=== PATIENT | female | born 1965 | race Caucasian/White ===

== ENCOUNTER → 2016-11-02 | Day surgery (SDC) | payer OTHER ==
[2016-10-24 09:13] VITALS: BMI 28.0
--- NOTE | 2016-10-24 09:56 | PAT Medication Instructions ---
Service Date October 24, 2016. Current Home Medication List Albuterol (Proair Hfa), 2 PUFFS INH Q4HR PRN Baclofen (Lioresal), 10 MG PO BID Cetirizine Hcl (Zyrtec), 10 MG PO QAM Cholecalciferol (Vitamin D3), 1 TAB PO QPM Docusate Sodium (Colace *), 100 MG PO TID Duloxetine Hcl (Cymbalta *), 90 MG PO QAM Fluticasone Prop/Salmeterol (Advair Diskus 500/50 Mcg *), 1 PUFF INH BID Fluticasone Propionate (Nasal) (Flonase Allergy Relief), 2 SPRAYS TRACY QAM Gabapentin (Neurontin), 400 MG PO TID Hydroxyzine Hcl (Hydroxyzine Hcl), 2.5 ML PO TID PRN for PRN Ipratropium [place] (Ipratropium [place]), 1 VIAL NEB QID PRN for PRN Levothyroxine (Synthroid *), 0.112 MG PO QAM Morphine Sulfate Ir (Morphine Sulfate Ir), 60 MG PO Q12H PRN for Pain Omeprazole (Prilosec), 20 MG PO QAM Oxcarbazepine (Trileptal), 300 MG PO TID Oxycodone Ir (Roxicodone Ir), 5 MG PO Q6H PRN for Pain Prochlorperazine Maleate (Compazine), 10 MG PO Q6H PRN for nasea Simethicone (Simethicone), 1 CAP PO TID PRN for GAS Topiramate (Topamax), 50 MG PO BID Medication Instructions For Your Scheduled Surgery - Hold the following medications the morning of surgery: Simethicone (Simethicone), 1 CAP PO TID PRN for GAS Docusate Sodium (Colace *), 100 MG PO TID Cetirizine Hcl (Zyrtec), 10 MG PO QAM Baclofen (Lioresal), 10 MG PO BID - Take the following medications the morning of surgery with a sip of water: Topiramate (Topamax), 50 MG PO BID Prochlorperazine Maleate (Compazine), 10 MG PO Q6H PRN for nasea (if needed) Oxcarbazepine (Trileptal), 300 MG PO TID Omeprazole (Prilosec), 20 MG PO QAM Morphine Sulfate Ir (Morphine Sulfate Ir), 60 MG PO Q12H PRN for Pain (okay to take up to 4 hours prior to surgery if needed) Oxycodone Ir (Roxicodone Ir), 5 MG PO Q6H PRN for Pain (okay to take up to 4 hours prior to surgery if needed) Levothyroxine (Synthroid *), 0.112 MG PO QAM Ipratropium [place] (Ipratropium [place]), 1 VIAL NEB QID PRN for PRN (if needed) Gabapentin (Neurontin), 400 MG PO TID Fluticasone Prop/Salmeterol (Advair Diskus 500/50 Mcg *), 1 PUFF INH BID Fluticasone Propionate (Nasal) (Flonase Allergy Relief), 2 SPRAYS TRACY QAM Duloxetine Hcl (Cymbalta *), 90 MG PO QAM Albuterol (Proair Hfa), 2 PUFFS INH Q4HR PRN (okay to use if needed; bring with you to hospital morning of surgery) Hydroxyzine Hcl (Hydroxyzine Hcl), 2.5 ML PO TID PRN for PRN (if needed) - Take the following medications as scheduled the night before surgery: Topiramate (Topamax), 50 MG PO BID Simethicone (Simethicone), 1 CAP PO TID PRN for GAS (if needed) Prochlorperazine Maleate (Compazine), 10 MG PO Q6H PRN for nasea (if needed) Oxcarbazepine (Trileptal), 300 MG PO TID Morphine Sulfate Ir (Morphine Sulfate Ir), 60 MG PO Q12H PRN for Pain (if needed) Oxycodone Ir (Roxicodone Ir), 5 MG PO Q6H PRN for Pain Ipratropium [place] (Ipratropium [place]), 1 VIAL NEB QID PRN for PRN (if needed) Gabapentin (Neurontin), 400 MG PO TID Fluticasone Prop/Salmeterol (Advair Diskus 500/50 Mcg *), 1 PUFF INH BID Cholecalciferol (Vitamin D3), 1 TAB PO QPM Docusate Sodium (Colace *), 100 MG PO TID Baclofen (Lioresal), 10 MG PO BID If you have any questions please call us at [phone] or [phone] or [phone]
[2016-10-24 10:30] LABS: BASO ABS # 0.05 K/uL (0-0.2); COMPLETE YES; EOS % 3.7 %; HEMATOCRIT 39.9 % (37-47); LYMPH % 34.6 %; LYMPH ABS # 1.67 K/uL (1.2-3.4); MEAN CELL VOLUME 82.3 fL (80-100); MEAN CORPUSCULAR HEMOGLOBIN 27.2 pg (25-34); MEAN CORPUSCULAR HGB CONC 33.1 g/dl (32-36); MEAN PLATELET VOLUME 9.2 fL (7.4-10.4); MONO % 9.5 %; NEUT % 51.2 %; PLATELET COUNT 271 K/uL (130-400); RED BLOOD COUNT 4.85 M/uL (4.2-5.4); WHITE BLOOD COUNT 4.83 K/uL (4.8-10.8)
[2016-10-24 11:22] LABS: BUN/CREATININE RATIO 18.5 (10-20); CREATININE 0.81 mg/dl (0.60-1.20); POTASSIUM 4.3 mmol/L (3.5-5.1)
[2016-10-24 11:34] LABS: CALCIUM 9.1 mg/dl (8.5-10.1)
[~2016-11-02] VITALS: Ht 170.2 cm; Wt 81.3 kg
[~2016-11-02] MED LIST: ADVIN50050 INH; ALBU1AER9 INH; ALBUTEROL HFA INHALER 8.5 GM INH ONE; ATRINS NEB; ATROPINE SULFATE 0.1 MG/ML 5ML SYR IV PRN; BACL10TA PO; CETI10TA10 PO; CHOL1000 PO; CLC100 PO; CYM30 PO; DEXAMETHASONE SOD INJ 4 MG/ML VIAL ONE; EpHEDrine SULFATE 50MG/5ML SYR ONE; EpHEDrine SULFATE INJ 50 MG/ML AMP IV PRN; FENTANYL CITRATE INJ 50 MCG/1 ML 2 ML VIAL IV PRN; FENTANYL CITRATE INJ 50 MCG/1 ML 2 ML VIAL ONE; FLUT0.15 NAE; GABA1CAP5 PO; HYDR-3124 PO; HYDR10SY2 PO; KETOROLAC TROMETHAMINE 30 MG/ML VIAL IV. PRN; LACTATED RINGER'S 1000ML 1,000 ML IV SCH; LIDOCAINE HCL 2% 2 ML VIAL (20MG/ML) ONE; MIDAZOLAM HCL 1 MG/ML 2ML VIAL ONE; MORP30TA PO; ONDANSETRON INJ 2 MG/ML 2 ML VIAL IV PRN; ONDANSETRON INJ 2 MG/ML 2 ML VIAL ONE; OXCA300T PO; OXYC1TAB3 PO; OXYCODONE/ACETAMINOPHEN 5-325 TAB PO PRN; PRLSR20 PO; PROC1TAB5 PO; PROPOFOL IV EMULSION 10 MG/ML 20 ML VIAL IV ONE; SIME1CAP11 PO; SODIUM CHLORIDE 0.9% 1000ML 1,000 ML IV SCH; SYN112 PO; TOPI50TA16 PO
[2016-11-02 11:03] VITALS: BP 120/69; PULSE 70; TEMP 37.2; O2SAT 97; Ht 170.2 cm; Wt 81.3 kg
[2016-11-02 11:22] LABS: BASO % 0.8 %; BASO ABS # 0.04 K/uL (0-0.2); EOS % 3.8 %; HEMATOCRIT 38.7 % (37-47); LYMPH % 31.5 %; LYMPH ABS # 1.56 K/uL (1.2-3.4); MEAN PLATELET VOLUME 8.8 fL (7.4-10.4); MONO % 9.7 %; NEUT % 54.2 %; PLATELET COUNT 243 K/uL (130-400); RED BLOOD COUNT 4.78 M/uL (4.2-5.4); WHITE BLOOD COUNT 4.96 K/uL (4.8-10.8)
[2016-11-02 11:27] LABS: COMPLETE YES; MEAN CORPUSCULAR HGB CONC 33.3 g/dl (32-36)
--- NOTE | 2016-11-02 11:53 | History & Physical Bridge Note ---
H&P Re-Evaluation Bridge Note: I have examined the patient, reviewed the History & Physical and in the interval since the performance of the History & Physical I have noted the following changes of clinical significance: No changes noted
--- NOTE | 2016-11-02 13:19 | Discharge Instructions ---
Discharge Instructions Date of Service Nov 02, 2016. Visit Reason for Visit: Heavy Menstrual Bleeding Discharge Discharge Diagnosis / Problem: Heavy Mnestural bleeding, S/p endometrial ablation, D&C, hysteroscopy Discharge Goals Goal(s): Decrease discomfort Activity Recommendations Activity Limitations: per Instructions/Follow-up section Anesthesia . Post Anesthesia Instructions: If you have had General Anesthesia or IV Sedation: * Do not drive today. * Resume driving when surgeon permits. * Do not make important decisions or sign legal documents today. * Call surgeon for: 1. Temperature elevations greater than 101 degrees F. 2. Uncontrollable pain. 3. Excessive bleeding. 4. Persistent nausea and vomiting. 5. Medication intolerance (nausea, vomiting or rash). * For nausea and vomiting use only clear liquids such as: tea, soda, bouillon until nausea subsides, then gradually increase diet as tolerated. * If you have any concerns or questions, call your surgeon's office. If physician is unavailable and it is an emergency, call 911 or go to the nearest emergency room. . Instructions / Follow-Up Instructions / Follow-Up ACTIVITY RECOMMENDATIONS: * Avoid tampons, douching, hot tubs, pools, and intercourse for 4 weeks. * May shower as usual. * No strenuous activity for 24-48 hours. After 24-48 hours, you can do anything you feel like doing (driving and sports are okay). RETURN TO SCHOOL/WORK: * You may return to school or work after 24 hours unless specified by your physician. DIET: * Resume previous diet. MEDICATIONS: Resume previous medications unless instructed otherwise by your surgeon. Ibuprofen 200mg 2-3 tablets every 4-6 hours as needed --OR-- Aleve 2 tablets every 8-12 hours as needed for post-operative discomfort Medications are over the counter. Tylenol may be used if above medications are contraindicated or not preferred. Medication should be taken with food or milk. do not take on an empty stomach. SPECIAL CARE INSTRUCTIONS: * Check temperature twice daily for one week. Report any elevation over 101 degrees. * Call office if you experience increased pelvic pain or discomfort not relieved by pain medicine, if you have foul smelling vaginal discharge, if you have bleeding that is heavier than a normal menstrual flow. If you are changing a maxi pad every 1- 2 hours, this is too heavy. vaginal spotting is normal for 1-2 weeks. FOLLOW UP VISIT: Call your doctor's office for a post-operative visit. Diet Recommendations Recommended Home Diet: no limitations, resume previous diet Procedures Procedures Performed: Hysteroscopy, Dilation Curretage, Novasure Endometrial Ablation Pending Studies Studies pending at discharge: no Medical Emergencies . Who to Call and When: Medical Emergencies: If at any time you feel your situation is an emergency, please call 911 immediately. . Non-Emergent Contact Non-Emergency issues call your: Primary Care Provider, Oriental Rug Repairer . . "Provider Documentation" section prepared by Gio Mane. .
--- NOTE | 2016-11-02 13:27 | [facility] Post Operative Brief Note ---
Immediate Operative Summary Operative Date Nov 02, 2016. Pre-Operative Diagnosis Heavy Menstrual Bleeding, Fibroid Uterus Post-Operative Diagnosis Heavy Menstrual Bleeding, Fibroid Uterus Procedure(s) Performed Hysteroscopy, Dilation Curretage, Novasure Endometrial Ablation Surgeon Dr. Mane Fortune Cookie Maker Surgeon(s) Dr. Rod Estimated Blood Loss 10 cc Findings Upon Bimanual exam uterus was at midline and freely mobile. Bilateral adnexa clear to palpation. Uterus sounded to 11 cm. Upon hysteroscopic exam bilateral tubal ostia were clearly visualized. There were no submucosal fibroids or polyps noted. Cervical length measured 3.5 cm. Using a medium jones curette a thorough curettage of the cavity was performed obtaining a moderate amount of endometrial tissue which was sent to pathology. Novasure endometrial ablation was performed with settings of 6.5 cm for cavity length and 5.1 cm for cavity width. Ablation was completed at a power of 180 plasencia for 51 seconds. Once the ablation was complete, the novasure tool was removed and the hysteroscope was reintroduced into the endometrial cavity noting an excellent endometrial burn with no incidental uterine perforation or injury. The patient tolerated the procedure well and was sent to recovery with stable vital signs. Fluids (cc crystalloids) 900 Specimens A: Endometrial Curretings Drains None Anesthesia General Complication(s) None Disposition Recovery Room / PACU
[2016-11-02 14:05] VITALS: BP 128/67; PULSE 84; TEMP 36.9; O2SAT 97
--- NOTE | 2016-11-02 14:17 | Anesthesiology Progress Note ---
Anesthesia Post Op Note Date & Time Nov 02, 2016 at 14:16 Vital Signs Pain Intensity: 3 Vital Signs Past 12 Hours Date Time Temp Pulse Resp B/P (MAP) Pulse Ox O2 Delivery O2 Flow Rate FiO2 11/02/16 13:55 36.6 83 12 123/73 96 Room Air 11/02/16 13:45 91 18 125/72 97 Room Air 11/02/16 13:35 85 13 132/85 100 Mask 10 11/02/16 13:25 107 18 142/90 100 Mask 10 11/02/16 13:18 36.0 91 20 139/91 100 Mask 10 11/02/16 11:03 37.2 70 21 120/69 (86) 97 Room Air Notes Mental Status: alert / awake / arousable, participated in evaluation Pt Amnestic to Procedure: Yes Nausea / Vomiting: adequately controlled Pain: adequately controlled Airway Patency, RR, SpO2: stable & adequate BP & HR: stable & adequate Hydration State: stable & adequate Anesthetic Complications: no major complications apparent
[2016-11-02 14:35] VITALS: BP 147/83; PULSE 87; O2SAT 99
[2016-11-02 15:05] VITALS: BP 136/75; PULSE 83; TEMP 36.9; O2SAT 96
--- NOTE | 2016-11-02 19:48 | OPERATIVE REPORT ---
DATE OF OPERATION: 11/02/2016 PREOPERATIVE DIAGNOSES: 1. Heavy menstrual bleeding. 2. Fibroid uterus. POSTOPERATIVE DIAGNOSES: Same. OPERATIVE PROCEDURES: Dilation and curettage, hysteroscopy and NovaSure endometrial ablation. SURGEON: Dr. Mane. CONSTRUCTION HELPER: Dr. Rod. ANESTHESIA: General. ESTIMATED BLOOD LOSS: 10 mL. IV FLUIDS: 900 mL crystalloids. URINE OUTPUT: 200 mL clear yellow urine. SPECIMENS: Endometrial curettings to pathology. DRAINS: None. COMPLICATIONS: None. DISPOSITION: Recovery room. OPERATIVE FINDINGS: Upon bimanual exam, uterus was at midline and freely mobile. Bilateral adnexa were clear to palpation. Uterus sounded to 11 cm. Upon hysteroscopic exam, bilateral tubal ostia were clearly visualized. There were no submucosal fibroids or polyps noted. Cervical length measured 3.5 cm. Using a medium Rossi curette, a thorough curettage of the cavity was performed obtaining a moderate amount of endometrial tissue, which was sent to pathology. NovaSure endometrial ablation was performed with settings of 6.5 cm for cavity length and 5.1 cm for cavity width. Ablation was completed at a power of 180 plasencia for 51 seconds. Once the ablation was completed, no NovaSure tool was removed and the hysteroscope was reintroduced into the endometrial cavity noting an excellent endometrial burn with no incidental uterine perforation or injury. The patient tolerated the procedure well and was sent to recovery with stable vital signs. OPERATIVE PROCEDURE IN DETAIL: The patient was taken to the operating room where general anesthesia was administered. Once anesthesia was found to be adequate, the patient was placed in the dorsal lithotomy position and was prepped and draped in a manner appropriate for procedure. A bimanual examination was then performed with the above noted findings. The bladder was then drained of clear yellow urine. A weighted speculum was placed into the vagina and the anterior lip of the cervix was grasped with a single tooth tenaculum. The cervix was then dilated with Hegar dilators. The uterus was then sounded to 11 cm. The hysteroscope was introduced into the endometrial cavity and a thorough examination was performed. The hysteroscope was then removed and using a medium Rossi curette, a thorough curettage of the cavity was performed obtaining a moderate amount of endometrial tissue, which was sent to pathology. At this point, the NovaSure endometrial ablation tool was assembled and introduced into the endometrial cavity. Settings were 6.5 cm for cavity length, and 5.1 cm for cavity width. NovaSure ablation was then performed with NovaSure protocol according to NovaSure protocol at a power of 180 plasencia for 51 seconds. Once the ablation was completed, the NovaSure tool was removed. The hysteroscope was reintroduced into the endometrial cavity and a thorough examination was performed noting an excellent endometrial burn with no incidental uterine perforation or injury. At this point, the procedure was found to be complete. All instruments were removed from the patient. Excellent hemostasis was noted. All sponge and instrument counts were found to be correct x2. The patient tolerated the procedure well and was sent to recovery with stable vital signs. I attest to the content of the Intraoperative Record and any orders documented therein. Any exception s are noted below.
== END | disposition home or self-care (01) ==
LOC: C.ACU 10:30
PROVIDERS: ATTEND Obstetrics & Gynecology
DX: D25.1 Intramural leiomyoma of uterus (principal); J45.30 Mild persistent asthma, uncomplicated; F31.62 Bipolar disorder, current episode mixed, moderate; M48.02 Spinal stenosis, cervical region; M79.7 Fibromyalgia; E87.6 Hypokalemia; E03.9 Hypothyroidism, unspecified; F42.9 Obsessive-compulsive disorder, unspecified; G47.33 Obstructive sleep apnea (adult) (pediatric); K21.0 Gastro-esophageal reflux disease with esophagitis; Z98.2 Presence of cerebrospinal fluid drainage device; Z79.899 Other long term (current) drug therapy

== ENCOUNTER 2017-08-27 15:48 | Emergency (ER) | payer OTHER ==
[~2017-08-27] VITALS: Ht 162.6 cm; Wt 80.0 kg
[~2017-08-27 15:48] MED LIST changes: -ALBUTEROL HFA INHALER 8.5 GM INH ONE; -ATROPINE SULFATE 0.1 MG/ML 5ML SYR IV PRN; -DEXAMETHASONE SOD INJ 4 MG/ML VIAL ONE; -EpHEDrine SULFATE 50MG/5ML SYR ONE; -EpHEDrine SULFATE INJ 50 MG/ML AMP IV PRN; -FENTANYL CITRATE INJ 50 MCG/1 ML 2 ML VIAL IV PRN; -FENTANYL CITRATE INJ 50 MCG/1 ML 2 ML VIAL ONE; +GABA-1220 PO; -GABA1CAP5 PO; -HYDR10SY2 PO; -KETOROLAC TROMETHAMINE 30 MG/ML VIAL IV. PRN; -LACTATED RINGER'S 1000ML 1,000 ML IV SCH; -LIDOCAINE HCL 2% 2 ML VIAL (20MG/ML) ONE; -MIDAZOLAM HCL 1 MG/ML 2ML VIAL ONE; -ONDANSETRON INJ 2 MG/ML 2 ML VIAL IV PRN; -ONDANSETRON INJ 2 MG/ML 2 ML VIAL ONE; -OXYCODONE/ACETAMINOPHEN 5-325 TAB PO PRN; -PROPOFOL IV EMULSION 10 MG/ML 20 ML VIAL IV ONE; -SODIUM CHLORIDE 0.9% 1000ML 1,000 ML IV SCH
[2017-08-27 15:50] VITALS: TEMP 36.9; Ht 162.6 cm; Wt 80.0 kg
[2017-08-27] MEDS ORDERED: SODIUM CHLORIDE 0.9% 1000ML 2,000 ML IV STA (16:00)
[2017-08-27] MEDS ORDERED: ONDANSETRON INJ 2 MG/ML 2 ML VIAL IV STA (16:00)
[2017-08-27 17:01] LABS: BASO % 0.1 %; BASO ABS # 0.01 K/uL (0-0.2); EOS % 0.3 %; EOS ABS # 0.03 K/uL (0-0.5); IG# 0.01 K/uL (0.00-0.02); LYMPH % 3.2 %; LYMPH ABS # 0.31 K/uL (1.2-3.4); MEAN CELL VOLUME 81.2 fL (80-100); MEAN CORPUSCULAR HEMOGLOBIN 28.9 pg (25-34); MEAN CORPUSCULAR HGB CONC 35.6 g/dl (32-36); MEAN PLATELET VOLUME 8.9 fL (7.4-10.4); MONO ABS # 0.29 K/uL (0.11-0.59); NEUT % 93.3 %; NEUT ABS # 8.94 K/uL (1.4-6.5); PLATELET COUNT 240 K/uL (130-400); RED CELL DISTRIBUTION WIDTH CV 13.4 % (11.5-14.5); WHITE BLOOD COUNT 9.59 K/uL (4.8-10.8)
[2017-08-27 17:27] LABS: CALCIUM 8.9 mg/dl (8.5-10.1); CREATININE 0.72 mg/dl (0.60-1.20); POTASSIUM 3.2 mmol/L (3.5-5.1)
[2017-08-27 17:30] LABS: TOTAL PROTEIN 7.6 gm/dl (6.4-8.2)
--- NOTE | 2017-08-27 17:31 | EMERGENCY ROOM VISIT NOTE ---
ED Visit Note First contact with patient: 15:50 CHIEF COMPLAINT: Nausea, vomiting, diarrhea HISTORY OF PRESENTING ILLNESS: This is a 52-year-old female who presents to the emergency department via EMS with complaint of acute onset of nausea, vomiting, and diarrhea last night around 2 AM. Patient states that she started with some diarrhea, then quickly began to vomit, states she has vomited more than 20 times and has now been having dry heaves. She has had about 5 episodes of watery diarrhea. She denies any bilious, bloody or coffee-ground emesis, denies bloody or black stools. She reports some mild epigastric discomfort that started after she vomited several times that she describes as cramping and which feels improved after vomiting, she denies any abdominal pain prior to her symptoms and was feeling well yesterday. She rates her abdominal pain as a 3/ 10. She has had associated chills and states EMS told her she had a low-grade fever of 100.5, as well as associated weakness and fatigue. She has not taken any Tylenol or NSAIDs today. She notes some possible sick contacts with similar symptoms. She denies any recent travel, undercooked or raw foods, or recent antibiotics in the past 3 months. She reports history of similar symptoms in the past, states she was diagnosed with a stomach virus. Past surgical history of cholecystectomy and uterine ablation. She denies any symptoms of headache, vision changes, neck pain or stiffness, chest pain, shortness of breath, syncope, back pain, urinary symptoms, or rash. REVIEW OF SYSTEMS: A complete 10 point review of systems was reviewed with the patient with pertinent positives and negatives as per history of present illness. All else were negative. PAST MEDICAL HISTORY: Reviewed in chart. SOCIAL HISTORY: Lives at home. Denies tobacco use, alcohol, recreational drug use. ALLERGIES: Reviewed in chart. PHYSICAL EXAM: CONSTITUTIONAL: Pleasant and cooperative. No acute distress, but appears uncomfortable, actively dry heaving. Moderately dehydrated. HEENT: Normocephalic, atraumatic. Pupils equal, round and reactive to light, EOMI. TMs normal. Pharynx normal. Dry mucous membranes. NECK: Supple, full active range of motion without discomfort. No cervical adenopathy. RESPIRATORY: Clear to auscultation bilaterally with no wheezing, crackles, rhonchi or stridor. Equal expansion bilaterally. CARDIOVASCULAR: Regular rate and rhythm with no murmurs, rubs or gallops. Normal peripheral perfusion. No edema. GASTROINTESTINAL: Soft, mildly tender in the epigastric region, abdomen is otherwise nontender, nondistended. No rebound tenderness or guarding. No palpable masses or HSM. Bowel sounds present in all quadrants. No CVA tenderness. MUSCULOSKELETAL: Full range of motion of all joints without discomfort. INTEGUMENTARY: No rash or other significant dermatologic conditions noted. NEUROLOGIC: Alert and oriented X 4 with normal affect. Cranial nerves II-XII grossly intact. No focal neurologic deficits noted. Normal strength and sensation in all 4 extremities. Normal speech. Normal gait observed. Negative Romberg. ED COURSE AND MEDICAL DECISION MAKING: CC: Patient presenting with complaint of nausea, vomiting, diarrhea DIFFERENTIAL DIAGNOSIS: Includes, but not limited to gastroenteritis, gastritis , peptic ulcer disease, cholecystitis, cholelithiasis, pancreatitis, hepatitis, dehydration, food poisoning, electrolyte abnormality, among others. INTERPRETATION OF LABS: No leukocytosis, no anemia, mild hypokalemia, no significant electrolyte abnormalities, normal renal function, elevated alk phos and transaminases, normal T bili, normal lipase. Alcohol, acetaminophen, and salicylate levels are all negative. UA consistent with dehydration and appears to be contaminated, culture pending. Negative C. diff. Stool cultures pending. MEDICATION RECONCILIATION: I attest that I have personally reviewed the patient 's current medication list. INITIAL VITAL SIGNS REVIEW: I reviewed the patient's initial vital signs and interpret them as follows: T: Afebrile; BP: Hypertensive; HR: Tachycardic; RR : Within normal limits; Pulse Ox: Within normal limits on room air. Blood pressure screening: The patient was found to have an elevated blood pressure, which was felt to be situational. SUMMARY: Patient was evaluated at bedside, history and physical exam performed. Patient is alert and oriented, in no acute distress but does appear uncomfortable and is noted to be dry heaving. Patient is noted to be tachycardic in the 120s-130s, and appears moderately dehydrated on exam. Orders were placed at bedside for labs, UA, 2 L IV fluid bolus for hydration, IV Zofran for nausea. Patient discussed with Dr. Gregory, who also evaluated the patient and agrees with my assessment and plan. Labs and imaging reviewed as above, notable for some elevation in liver function tests, however the T bili is normal. Additional testing of alcohol, Tylenol, and salicylate levels were added, these are normal. Patient has a history of cholecystectomy, suspect this elevation may be secondary to vomiting or viral illness. I discussed the patient's medications with her, she notes that she normally takes 60 mg of Morphine IR every 12 hours, but was unable to keep this down today, and feels like she may also be experiencing some withdrawal symptoms. Her home dose of morphine 60 mg was ordered. Patient reassessed multiple times throughout ED stay, she states she is feeling much better, her tachycardia has improved with fluids, and she is tolerating PO well after Zofran with no further vomiting. Patient was updated on all results and plan for discharge, she was encouraged to follow closely with her PCP and to have her liver function test rechecked in the next week. She was provided with Rx and take home pack for Zofran. Patient was also given strict return precautions should her symptoms worsen, she verbalized understanding. Patient was discharged home in stable condition and ambulatory. Problem List Medical Problems: (1) ASTHMA, UNSPECIFIED Status: Chronic (2) CALCULUS OF KIDNEY Status: Resolved Current/Historical Medications Scheduled Baclofen (Lioresal), 10 MG PO BID Cetirizine Hcl (Zyrtec), 10 MG PO QAM Cholecalciferol (Vitamin D3), 1 TAB PO QPM Docusate Sodium (Docusate Sodium), 100 MG PO TID Duloxetine HCl (Cymbalta), 90 MG PO QAM Fluticasone Prop/Salmeterol (Advair Diskus 500/50 60 Dose), 1 PUFF INH BID Fluticasone Propionate (Nasal) (Flonase Allergy Relief), 2 SPRAYS TRACY QAM Gabapentin (Neurontin), 400 MG PO QID Levothyroxine Sodium (Synthroid), 112 MCG PO QAM Morphine Sulfate (Morphine Sulfate Cr), 60 MG PO BID Omeprazole (Prilosec), 20 MG PO QAM Ondasetron Odt (Zofran Odt), 4 MG SL Q6H Oxcarbazepine (Trileptal), 300 MG PO TID Scheduled PRN Albuterol (Ventolin Hfa), 2 PUFF INH Q4 PRN for Shortness of Breath Hydroxyzine Hcl (Atarax), 25 MG PO BID PRN for Itching Ipratropium [place] (Ipratropium [place]), 1 VIAL NEB QID PRN for PRN Oxycodone Ir (Roxicodone Ir), 5 MG PO Q6H PRN for Pain Prochlorperazine Maleate (Compazine), 10 MG PO Q6H PRN for nasea Simethicone (Simethicone), 1 CAP PO TID PRN for GAS Allergies Coded Allergies: Latex1 -Allergic Contact Dermititis (Verified Allergy, Mild, 08/27/17) Clomipramine (Verified Allergy, Unknown, TARDIVE DYSKINESIA, 08/27/17) Gadolinium (Verified Allergy, Unknown, RASH, 08/27/17) Haloperidol (Verified Allergy, Unknown, TARDIVE DYSKENESIA, 08/27/17) Athalia (Verified Allergy, Unknown, DIABETES INSIPIDOUS, 08/27/17) NSAIDs (Verified Allergy, Unknown, asthma exacerbation, 08/27/17) Olanzapine (Verified Allergy, Unknown, TARDIVE DYSKENSIA, 08/27/17) Pneumococcal Vaccines (Verified Allergy, Unknown, RASH, 08/27/17) Pseudoephedrine (Verified Allergy, Unknown, ASTHMA ISSUES, 08/27/17) Risperidone (Verified Allergy, Unknown, tardive dyskinesia, 08/27/17) Vital Signs Date Time Temp Pulse Resp B/P (MAP) Pulse Ox O2 Delivery O2 Flow Rate FiO2 08/27/17 21:24 87 18 116/62 94 Room Air 08/27/17 20:58 99 08/27/17 20:37 92 18 126/66 97 Room Air 08/27/17 19:17 99 18 90/69 97 Room Air 08/27/17 18:30 82 20 144/86 08/27/17 17:00 98 08/27/17 15:50 36.9 100 22 156/106 98 Room Air Laboratory Results 08/27/17 16:48 Red Blood Count 5.54, Mean Corpuscular Volume 81.2, Mean Corpuscular Hemoglobin 28.9, Mean Corpuscular Hemoglobin Concent 35.6, Mean Platelet Volume 8.9, Neutrophils (%) (Auto) 93.3, Lymphocytes (%) (Auto) 3.2, Monocytes (%) (Auto) 3.0, Eosinophils (%) (Auto) 0.3, Basophils (%) (Auto) 0.1, Neutrophils # (Auto) 8.94, Lymphocytes # (Auto) 0.31, Monocytes # (Auto) 0.29, Eosinophils # (Auto) 0.03, Basophils # (Auto) 0.01 08/27/17 16:48 Test 08/27/17 16:30 08/27/17 16:48 08/27/17 18:33 Urine Color DK YELLOW Urine Appearance CLOUDY (CLEAR) Urine pH 7.5 (4.5-7.5) Urine Specific [place] 1.021 (1.000-1.030) Urine Protein NEG (NEG) Urine Glucose (UA) NEG (NEG) Urine Ketones 2+ (NEG) Urine Occult Blood NEG (NEG) Urine Nitrite NEG (NEG) Urine Bilirubin NEG (NEG) Urine Urobilinogen POS (NEG) Urine Leukocyte Esterase TRACE (NEG) Urine WBC (Auto) 1-5 /hpf (0-5) Urine RBC (Auto) 5-10 /hpf (0-4) Urine Hyaline Casts (Auto) 1-5 /lpf (0-5) Urine Epithelial Cells (Auto) >30 /lpf (0-5) Urine Bacteria (Auto) 1+ (NEG) White Blood Count 9.59 K/uL (4.8-10.8) Red Blood Count 5.54 M/uL (4.2-5.4) Hemoglobin 16.0 g/dL (12.0-16.0) Hematocrit 45.0 % (37-47) Mean Corpuscular Volume 81.2 fL (80-100) Mean Corpuscular Hemoglobin 28.9 pg (25-34) Mean Corpuscular Hemoglobin Concent 35.6 g/dl (32-36) Platelet Count 240 K/uL (130-400) Mean Platelet Volume 8.9 fL (7.4-10.4) Neutrophils (%) (Auto) 93.3 % Lymphocytes (%) (Auto) 3.2 % Monocytes (%) (Auto) 3.0 % Eosinophils (%) (Auto) 0.3 % Basophils (%) (Auto) 0.1 % Neutrophils # (Auto) 8.94 K/uL (1.4-6.5) Lymphocytes # (Auto) 0.31 K/uL (1.2-3.4) Monocytes # (Auto) 0.29 K/uL (0.11-0.59) Eosinophils # (Auto) 0.03 K/uL (0-0.5) Basophils # (Auto) 0.01 K/uL (0-0.2) RDW Standard Deviation 40.0 fL (36.4-46.3) RDW Coefficient of Variation 13.4 % (11.5-14.5) Immature Granulocyte % (Auto) 0.1 % Immature Granulocyte # (Auto) 0.01 K/uL (0.00-0.02) Anion Gap 8.0 mmol/L (3-11) Est Creatinine Clear Calc Drug Dose 93.6 ml/min Estimated GFR () 111.6 Estimated GFR (Non- 96.3 BUN/Creatinine Ratio 20.4 (10-20) Calcium Level 8.9 mg/dl (8.5-10.1) Total Bilirubin 0.8 mg/dl (0.2-1) Direct Bilirubin 0.2 mg/dl (0-0.2) Aspartate Amino Transf (AST/SGOT) 288 U/L (15-37) Alanine Aminotransferase (ALT/SGPT) 230 U/L (12-78) Alkaline Phosphatase 172 U/L (45-117) Total Protein 7.6 gm/dl (6.4-8.2) Albumin 4.0 gm/dl (3.4-5.0) Lipase 150 U/L (73-393) Salicylates Level < 1.7 mg/dl (2.8-20) Acetaminophen Level 21 ug/ml (10-30) Ethyl Alcohol mg/dL < 3.0 mg/dl (0-3) Date/Time Source Procedure Growth Status 08/27/17 17:15 Stool C.difficile Toxin B Gene (PCR) - Final No C. difficile toxin B gene detected Complete Medications Administered Medications (Trade) Dose Ordered Sig/Yaima Route Start Time Stop Time Status Last Admin Dose Admin Sodium Chloride 2,000 ml @ 999 mls/hr Q2H1M STAT IV 08/27/17 16:00 08/27/17 18:00 DC 08/27/17 16:48 999 MLS/HR Ondansetron HCl (Zofran Inj) 4 mg NOW STAT IV 08/27/17 16:00 08/27/17 16:06 DC 08/27/17 16:48 4 MG Morphine Sulfate (Ms Contin Tab) 60 mg NOW ONCE PO 08/27/17 18:30 08/27/17 18:31 DC 08/27/17 19:16 60 MG Ondansetron HCl (Zofran Inj) 4 mg STK-MED ONCE .ROUTE 08/27/17 20:33 08/27/17 20:34 DC 08/27/17 20:33 4 MG Ondansetron HCl (ZOFRAN ODT 4MG Home Pack) 1 homepack UD ONCE PO 08/27/17 21:00 08/27/17 21:01 DC 08/27/17 21:25 1 HOMEPACK Departure Information Impression Primary Impression: Nausea, vomiting, and diarrhea Additional Impressions: Elevated liver function tests Dehydration Dispostion Home / Self-Care Condition GOOD Prescriptions Ondasetron Odt (ZOFRAN ODT) 4 Mg Tab 4 MG SL Q6H for Nausea, #6 TAB Prov: Zaynab Thakur CRNP 08/27/17 Referrals Donovan Bernardo, D.O. (PCP) Patient Instructions ED Dehydration, ED Diet [place], ED Food Poison Or Gastroenteritis, [facility] Additional Instructions You have been treated in the Emergency Department your nausea/vomiting and diarrhea. Laboratory results have ruled out any emergent causes for your symptoms which would warrant admission. You have been prescribed Zofran to be used as needed for nausea/vomiting. Take as prescribed. For pain or fever control, you can use the following [id number] medicines (if >12 yo): - Regular strength (325mg/tab) Tylenol (acetaminophen) 2 tabs every 4-6 hours as needed. Do not exceed 10 tablets in a 24 hour period. Avoid taking more than 3000 mg of Tylenol per day. This includes any other sources of acetaminophen you may take on a regular basis. - Regular strength (200 mg/tab) Advil (ibuprofen) 3 tabs every 6-8 hours as needed. Do not exceed a dose of 2400 mg per day. Drink plenty of fluids to stay well hydrated. Stick with a bland diet until your vomiting and diarrhea have fully resolved, then slowly advance back to a normal diet as tolerated. Please follow-up with your Primary Care Provider in the next few days to be rechecked. You will need to have repeat blood work to check on your liver function tests.. Return to the emergency department for severe abdominal or back pain, worsening nausea/vomiting, vomiting blood, blood in your stool or urine, fevers > 101.5, severe dizziness or passing out, or any other concerns. Work Instructions Return To Work: 2 days Problem Qualifiers
[2017-08-27] MEDS ORDERED: CYM/30 PO (17:52)
[2017-08-27] MEDS ORDERED: DOCU1TAB6 PO (17:52)
[2017-08-27] MEDS ORDERED: PRVHFAIN INH (17:52)
[2017-08-27] MEDS ORDERED: ADVIN50/60 INH (17:52)
[2017-08-27] MEDS ORDERED: LEVO112T2 PO (17:52)
[2017-08-27] MEDS ORDERED: MoRPHine SULFATE IR 15 MG TAB (IMMEDIATE RELEASE) PO STA (18:12)
--- NOTE | 2017-08-27 18:14 | EMERGENCY ROOM VISIT NOTE ---
ED Visit Note First contact with patient: 15:50 Patient was seen by our PA/[employer] APPRENTICE. I was involved in the patient's care and did evaluate the patient myself. I was involved in the care throughout the ER stay. Patient presents with vomiting. She was dehydrated. Minimal to no abdominal pain on exam. She is not febrile. She received treatment here for her symptoms and feels improved. She thinks that she may be now starting to go through narcotic withdrawal as she has not been able to take her morphine for around 3 days--she is on this chronically. She will be given this medication to help with the withdrawal symptomatology. If she continues to do well, she can be discharged with outpatient follow-up.
[2017-08-27] MEDS ORDERED: MORP-88 PO (18:17)
[2017-08-27] MEDS ORDERED: MoRPHine SULFATE CR 60 MG TAB (MS CONTIN) PO ONE (18:30)
[2017-08-27] MEDS ORDERED: ONDANSETRON INJ 2 MG/ML 2 ML VIAL ONE (20:33)
[2017-08-27] MEDS ORDERED: ONDA4TAB10 SL (20:59)
[2017-08-27] MEDS ORDERED: ONDANSETRON HOME PACK 4MG OD TAB PO ONE (21:00)
[2017-08-27 21:24] VITALS: BP 116/62; PULSE 87; O2SAT 94
== END 2017-08-27 21:24 | disposition home or self-care (01) ==
LOC: EDBD 15:48 → C.EDB 15:49
DX: R11.2 Nausea with vomiting, unspecified (principal); R19.7 Diarrhea, unspecified; E86.0 Dehydration; R79.89 Other specified abnormal findings of blood chemistry; J45.909 Unspecified asthma, uncomplicated; Z87.442 Personal history of urinary calculi; Z90.49 Acquired absence of other specified parts of digestive tract; Z91.040 Latex allergy status; Z91.041 Radiographic dye allergy status; Z88.8 Allergy status to other drugs, medicaments and biological substances; Z88.6 Allergy status to analgesic agent; Z88.7 Allergy status to serum and vaccine

== ENCOUNTER 2022-02-18 13:16 | Inpatient (IN) ==
[2022-02-18 14:34] LABS: Basophils # (auto) 0.05 K/uL (0-0.2); Basophils % (auto) 0.4 %; Eosinophils # (auto) 0.06 K/uL (0-0.50); Eosinophils % (auto) 0.5 %; Hematocrit (blood only) 40.3 % (34.1-44.9); Hemoglobin 14.3 g/dl (12.0-16.0); Immature Granulocytes # (auto) 0.04 K/uL (0.00-0.02); Immature Granulocytes % (auto) 0.3 %; Lymphocytes # (auto) 1.34 K/uL (1.2-3.4); Lymphocytes % (auto) 10.9 %; Mean Corpuscular Hemoglobin 28.8 pg (25.0-34.0); Mean Corpuscular Hgb Conc 35.5 g/dL (32.0-36.0); Mean Corpuscular Volume 81.3 fL (80.0-100.0); Neutrophils # (auto) 9.66 K/uL (1.4-6.5); Neutrophils % (auto) 78.9 %; Platelet Count 338 K/uL (130-400); RDW Coefficient of Variation 12.6 % (11.5-14.5); RDW Standard Deviation 37.2 fL (36.4-46.3); Red Blood Count 4.96 M/uL (3.93-5.22); White Blood Count 12.25 K/ul (4.8-10.8)
[2022-02-18 14:53] LABS: Albumin Globulin Ratio 1.8 (0.9-2); Albumin Level 4.6 gm/dl (3.4-5.0); BUN Creatinine Ratio 19.4 (10-20); Bilirubin,Total 0.6 mg/dl (0.2-1.0); Calcium 9.7 mg/dl (8.5-10.1); Creatinine Clr Calc Pharmacy 117.2 ml/min; Est GFR (African American) 116.8 ml/min; Est GFR (Non-African American) 100.8 ml/min; Globulin 2.5 gm/dl (2.5-4.0); Potassium 4.1 mmol/L (3.5-5.1); Total Protein 7.1 gm/dl (6.0-8.3)
[2022-02-18] MEDS ORDERED: ONDANSETRON INJ 2 MG/ML 2 ML VIAL IV STA (16:36)
[2022-02-18] MEDS ORDERED: MoRPHine SULFATE 4 MG/ML 1 ML CARP\\VIAL IV STA ×2 (16:36→18:11)
--- NOTE | 2022-02-18 16:44 | Emergency Department Note ---
History of Present Illness General Chief complaint: Dental/Oral Stated complaint: DENTAL INFECTION Time Seen by Provider: 02/18/22 16:22 Source: patient History of Present Illness Provider complaint: Facial pain Onset (ago): day(s) Location: face and left Radiation: neck Pain Consistency: + constant Maximum Pain Intensity: 5 Quality: + other (Throbbing) Relieved By: + none Associated symptoms: + headaches (Mild intermittent) and + nausea/vomiting; no chest pain, no cough, no fever/chills or no shortness of breath This is a 56-year-old female who presents with facial pain. She has had problems with the left 3 lower teeth for several months. She has been trying to get a dental appointment to have them extracted but has had significant difficulty due to insurance issues. She did finally find somebody to see on February 27. Over the past several months she has been on several courses of antibiotics including amoxicillin and currently on clindamycin. The patient states that her pain got worse 8 days ago and so she went to her regular doctor who prescribed her clindamycin. The next day the pain went away and so she did not fill the prescription. She then developed pain 2 days ago and started the clindamycin. She noticed increased pain yesterday as well as vomiting and this morning she had significant swelling to her face so she came in for evaluation. She describes her pain as a throbbing sensation. No alleviating factors. She does not have fevers but she is on meloxicam and Tylenol on a regular basis. She denies chills. She has had no cough or cold symptoms, chest pain, shortness of breath, abdominal pain, diarrhea or urinary symptoms. Home Medications Medication Instructions Recorded Confirmed Type albuterol sulfate 90 mcg/actuation 2 puff inhalation Q4 PRN Shortness 01/12/19 02/18/22 History aerosol inhaler (Ventolin HFA) Of Breath Or Wheezing aripiprazole 5 mg tablet (Abilify) 5 mg PO DAILY 01/12/19 02/18/22 History baclofen 10 mg tablet 10 mg PO BID 01/12/19 02/18/22 History cetirizine 10 mg tablet (Zyrtec) 10 mg PO QAM PRN Allergy Symptoms 01/12/19 02/18/22 History cholecalciferol (vitamin D3) 25 1,000 unit PO DAILY 01/12/19 02/18/22 History mcg (1,000 unit) capsule (Vitamin D3) duloxetine 30 mg capsule,delayed 30 mg PO QAM 01/12/19 02/18/22 History release (Cymbalta) fluticasone propionate 50 2 spray intranasal HS PRN Nasal 01/12/19 02/18/22 History mcg/actuation nasal Congestion spray,suspension (Flonase Allergy Relief) gabapentin 400 mg capsule 400 mg PO QID 01/12/19 02/18/22 History (Neurontin) omeprazole 20 mg capsule,delayed 20 mg PO QAM 01/12/19 02/18/22 History release oxcarbazepine 300 mg tablet 300 mg PO TID 01/12/19 02/18/22 History (Trileptal) prochlorperazine maleate 10 mg 10 mg PO Q6 PRN Nausea 01/12/19 02/18/22 History tablet (Compazine) fluticasone 500 mcg-salmeterol 50 1 ea inhalation BID 11/19/19 02/18/22 History mcg/dose blistr powdr for inhalation (Jessie Garcia) L.acidophil-L.casei-B.bifid-B.longum-FOS 1 cap PO QAM 08/19/20 02/18/22 History 2 billion cell-50 mg capsule (Probiotic Blend) hydroxyzine pamoate 50 mg capsule 50 mg PO TID 08/19/20 02/18/22 History methylcellulose (with sugar) oral 1 tbsp PO QAM PRN Constipation 08/19/20 02/18/22 History powder (Citrucel (sucrose) oral powder) duloxetine 60 mg capsule,delayed 60 mg PO QAM 10/27/21 02/18/22 History release levothyroxine 100 mcg tablet 100 mcg PO DAILYBB 10/27/21 02/18/22 History metoprolol succinate 25 mg 25 mg PO DAILY 10/27/21 02/18/22 History tablet,extended release 24 hr Allergies Allergy/AdvReac Type Severity Reaction Status Date / Time clomipramine Allergy Severe TARDIVE Verified 10/27/21 14:43 DYSKINESIA haloperidol Allergy Severe TARDIVE Verified 10/27/21 14:43 DYSKENESIA NSAIDS (Non-Steroidal Allergy Severe asthma Verified 10/27/21 14:43 Anti-Inflamma exacerbation olanzapine Allergy Severe TARDIVE Verified 10/27/21 14:43 DYSKENSIA pseudoephedrine Allergy Severe ASTHMA Verified 10/27/21 14:43 ISSUES risperidone Allergy Severe tardive Verified 10/27/21 14:43 dyskinesia Gadolinium-Containing Allergy Intermediate RASH Verified 10/27/21 14:43 Contrast Medi Iodinated Contrast Media Allergy Intermediate Rash Unverified 10/27/21 14:43 lithium Allergy Intermediate DIABETES Verified 10/27/21 14:43 INSIPIDOUS latex Allergy Mild skin rash, Verified 10/27/21 14:43 itchy pneumococcal vaccine Allergy Mild RASH Verified 10/27/21 14:43 iodine AdvReac Intermediate Rash on Unverified 10/27/21 14:43 Truck Past Med/Surg History Medical History (Updated 02/18/22 @ 19:35 by Abdi Pressley MD) Asthma Bipolar 1 disorder Chiari malformation Constipation Fatty liver Fibromyalgia Fusion of spine c2-5--stiff neck, however pt states able to move backward if needed for intubation Hiatal hernia History of anesthesia reaction during cholecysectomy in 1995 @ [facility], [place] was told she had an asthma attack during the surgery pt unable to give further information. However pt has had multiple surgeries since without any further anesthesia issues. History of COVID-19 diagnosed 05/13/2020 @ [facility]--shortness of breath, pain in lungs, runny nose, loss of smell, malaise, body aches History of kidney stones History of MTHFR mutation Hypothyroidism Intracranial hypertension hx 2003 Left flank pain Migraine d/t chiari malformation Osteoarthritis PVC (premature ventricular contraction) Scoliosis mild Sleep apnea bipap (recalled, has not used since) Tachycardia follows with PCP, placed on Toprol. hx holter monitor with PCP. Temporomandibular joint disorder no bite block Unspecified asthma (07/24/12) inhaler daily/prn Surgical History History of bilateral tubal ligation History of brain shunt (~2003) for intracranial hypertension @ [facility] in 2003 History of brain surgery (~2002) decompression for chiari malformation 2002 @ [facility] History of carpal tunnel release of both wrists History of cholecystectomy History of colonoscopy History of dilatation and curettage x2 History of endometrial ablation History of esophagogastroduodenoscopy (EGD) History of tonsillectomy History of tooth extraction upper teeth Status post excision of lipoma Status post trigger finger release right hand middle finger Family History Brother Heart disease Family history of diabetes mellitus Father Heart disease Family history of diabetes mellitus Family hx colonic polyps Mother Family history of diabetes mellitus Sister Family history of diabetes mellitus Sister Family history of diabetes mellitus Uncle Family hx of colon cancer Other No family history of adverse response to anesthesia No pertinent family history in first degree relatives Social History Smoking Status: Former smoker Tobacco Type: Cigarettes Second Hand Exposure: No; Hx Alcohol Use: No Hx Substance Use: Yes Preferred Language: Czech Communication Ability: Effective Human Resources Intern Required: No Beliefs That Will Affect Care: None Current Living Situation: Significant Other Feels Safe at Home: Yes Assistive Devices: BiPap, Denture - Upper and Glasses Review of Systems See HPI for pertinent positives & negatives. and A total of 10 systems reviewed and were otherwise negative Physical Exam Vital Signs Vital Signs - 24 hr 02/18/22 13:50 02/18/22 18:12 Temperature 36.1 C L 36.4 C L Temperature Source Temporal Artery Scan Oral Pulse Rate 114 H Pulse Rate [Finger] 110 H Pulse Rhythm [Finger] Regular Pulse Strength [Finger] Normal Respiratory Rate 14 18 Blood Pressure 129/79 Blood Pressure [Right Arm] 132/74 Blood Pressure Mean 95 Blood Pressure Mean [Right Arm] 93 Pulse Oximetry 94 97 Oxygen Delivery Method Room Air Room Air Sepsis Recent Fever Within 48 Hours No Sepsis New/Unexplained Change in Mental Status No Sepsis Action Taken by Nursing No Action Required Constitutional: Vital signs reviewed. Eyes: Pupils are equal round reactive to light. Conjunctiva are noninjected. ENT: Pharynx is clear without erythema or exudate. Mucous membranes are moist. Upper dentures. The left mandibular molars and premolar show significant did decay and fracture. There is mild percussion tenderness. There is swelling to the gingiva. There is swelling to the left submandibular area without firmness or elevation of the tongue. No trismus. There is also swelling to the left lower lip and face. Neck supple without meningeal signs. Respiratory: Clear to auscultation bilaterally. Breath sounds are equal bilaterally. Cardiovascular: Regular rate and rhythm. No rubs or gallops. GI: Soft, nondistended and nontender. Bowel sounds are present. Musculoskeletal: No peripheral edema. Integumentary: No cyanosis. or jaundice. Neurological: The patient is awake and alert. No focal deficits. Psychiatric: Normal affect. Not anxious appearing. Course Administered Medications Sodium Chloride (Nss) 500 mls @ 125 mls/hr IV .Q4H EVELYN Stop: 03/20/22 16:44 Last Admin: 02/18/22 16:52 Dose: 125 mls/hr Documented By: COURTNEY Discontinued Medications Ceftriaxone Sodium (Rocephin) 2,000 mg in 70 mls @ 140 mls/hr IV NOW STA Stop: 02/18/22 18:57 Last Infusion: 02/18/22 19:18 Dose: 0 mls/hr Documented By: Admin: 02/18/22 18:47 Dose: 140 mls/hr Documented By: MEE Morphine Sulfate (Morphine Sulfate 4 Mg/Ml 1 Ml Carp\Vial) 4 mg IV NOW STA Stop: 02/18/22 16:37 Last Admin: 02/18/22 16:53 Dose: 4 mg Documented By: COURTNEY Morphine Sulfate (Morphine Sulfate 4 Mg/Ml 1 Ml Carp\Vial) 4 mg IV NOW STA Stop: 02/18/22 18:12 Last Admin: 02/18/22 18:19 Dose: 4 mg Documented By: MEE Ondansetron HCl (Ondansetron Inj 2 Mg/Ml 2 Ml Vial) 4 mg IV NOW STA Stop: 02/18/22 16:37 Last Admin: 02/18/22 16:53 Dose: 4 mg Documented By: COURTNEY Medical Decision Making Differential Diagnosis Odontalgia, dental abscess, facial abscess, facial cellulitis, sialoadenitis Medical Records Attestation: I reviewed the patient's medical records. I did perform a limited focused review of portions of the patient's old chart on the electronic medical record. The patient has had no recent pertinent visits to this hospital. Home Medications Current Medication List: was personally reviewed by me Laboratory Data Attestation: I reviewed the patient's lab results. Result diagrams: 02/18/22 14:28 02/18/22 14:28 Lab Results 02/18/22 02/18/22 02/18/22 Range/Units 14:28 14:28 14:28 WBC 12.25 H (4.8-10.8) K/ul RBC 4.96 (3.93-5.22) M/uL Hgb 14.3 (12.0-16.0) g/dl Hct 40.3 (34.1-44.9) % MCV 81.3 (80.0-100.0) fL MCH 28.8 (25.0-34.0) pg MCHC 35.5 (32.0-36.0) g/dL RDW Std Deviation 37.2 (36.4-46.3) fL RDW Coeff of Chandler 12.6 (11.5-14.5) % Plt Count 338 (130-400) K/uL MPV 8.0 L (9.4-12.3) fL Immature Gran % (Auto) 0.3 % Neut % (Auto) 78.9 % Lymph % (Auto) 10.9 % Brantley % (Auto) 9.0 % Eos % (Auto) 0.5 % Baso % (Auto) 0.4 % Neut # (Auto) 9.66 H (1.4-6.5) K/uL Lymph # (Auto) 1.34 (1.2-3.4) K/uL Brantley # (Auto) 1.10 H (0.24-0.82) K/uL Eos # (Auto) 0.06 (0-0.50) K/uL Baso # (Auto) 0.05 (0-0.2) K/uL Immature Gran # (Auto) 0.04 H (0.00-0.02) K/uL Sodium 130 L (136-145) mmol/L Potassium 4.1 (3.5-5.1) mmol/L Chloride 96 L (98-107) mmol/L Carbon Dioxide 25 (21-32) mmol/L Anion Gap 9 (3-11) BUN 12 (6-23) mg/dl Creatinine 0.62 (0.6-1.2) mg/dl Est Cr Clr Drug Dosing 117.2 ml/min Est GFR ( Amer) 116.8 ml/min Est GFR (Non-Af Amer) 100.8 ml/min BUN/Creatinine Ratio 19.4 (10-20) Glucose 97 (70-99(Fasting)) mg/dl Calcium 9.7 (8.5-10.1) mg/dl Total Bilirubin 0.6 (0.2-1.0) mg/dl AST 17 (13-39) U/L ALT 18 (7-52) U/L Alkaline Phosphatase 100 (34-104) U/L C-Reactive Protein 8.95 H (0-0.5) mg/dl Total Protein 7.1 (6.0-8.3) gm/dl Albumin 4.6 (3.4-5.0) gm/dl Globulin 2.5 (2.5-4.0) gm/dl Albumin/Globulin Ratio 1.8 (0.9-2) SARS-CoV-2, RNA, NAAT (NEGATIVE) 02/18/22 Range/Units 17:18 WBC (4.8-10.8) K/ul RBC (3.93-5.22) M/uL Hgb (12.0-16.0) g/dl Hct (34.1-44.9) % MCV (80.0-100.0) fL MCH (25.0-34.0) pg MCHC (32.0-36.0) g/dL RDW Std Deviation (36.4-46.3) fL RDW Coeff of Chandler (11.5-14.5) % Plt Count (130-400) K/uL MPV (9.4-12.3) fL Immature Gran % (Auto) % Neut % (Auto) % Lymph % (Auto) % Brantley % (Auto) % Eos % (Auto) % Baso % (Auto) % Neut # (Auto) (1.4-6.5) K/uL Lymph # (Auto) (1.2-3.4) K/uL Brantley # (Auto) (0.24-0.82) K/uL Eos # (Auto) (0-0.50) K/uL Baso # (Auto) (0-0.2) K/uL Immature Gran # (Auto) (0.00-0.02) K/uL Sodium (136-145) mmol/L Potassium (3.5-5.1) mmol/L Chloride (98-107) mmol/L Carbon Dioxide (21-32) mmol/L Anion Gap (3-11) BUN (6-23) mg/dl Creatinine (0.6-1.2) mg/dl Est Cr Clr Drug Dosing ml/min Est GFR ( Amer) ml/min Est GFR (Non-Af Amer) ml/min BUN/Creatinine Ratio (10-20) Glucose (70-99(Fasting)) mg/dl Calcium (8.5-10.1) mg/dl Total Bilirubin (0.2-1.0) mg/dl AST (13-39) U/L ALT (7-52) U/L Alkaline Phosphatase (34-104) U/L C-Reactive Protein (0-0.5) mg/dl Total Protein (6.0-8.3) gm/dl Albumin (3.4-5.0) gm/dl Globulin (2.5-4.0) gm/dl Albumin/Globulin Ratio (0.9-2) SARS-CoV-2, RNA, NAAT NEGATIVE (NEGATIVE) Imaging Data Radiologist's Impression: Soft Tissue Neck CT 02/18/22 16:36 CT soft tissue neck wo con CLINICAL HISTORY: left facial swelling eval for abscess Technique: Axial CT images of the soft tissues of the neck were obtained following intravenous administration of 100 cc of Omnipaque 300. Automated dose lowering techniques and/or adjustment according to patient size were utilized for this exam. CT DOSE: 562.66 mGy.cm Comparison: Comparison is made to CT cervical spine 07/22/2008 Findings: There is fat stranding about the left mandibular soft tissues without evidence of drainable fluid collection. The oropharynx, hypopharynx, larynx, and trachea are patent. Asymmetric lymph nodes are seen on the left measuring up to 9 mm in short axis. The parotid glands, submandibular glands, and thyroid gland are unremarkable. Imaged portions of the brain parenchyma are unremarkable. The paranasal sinuses and mastoid air cells are normal in appearance. Impression: No drainable fluid collection is seen. Soft tissue stranding in the left pupil/mandibular tissues are favored to represent cellulitis. There is reactive lymphadenopathy. ACT 112: Negative or not required by law. Electronically signed by: Didier Devlin M.D. 02/18/2022 6:03 PM [facility] Narrative I did evaluate the patient as noted above. The patient is presenting with facial swelling and pain for the past week. On exam she has facial swelling and has been vomiting since yesterday. She is currently on clindamycin which she started 2 days ago. IV access was established. I did treat her with IV morphine and Zofran. She was started on normal saline IV. I did order and review the patient's blood work as noted in the electronic medical record. Her white blood cell count is elevated at 12.25. She is not anemic. Her CMP is re markable for a sodium of 130 and a chloride of 96. She does have a prior history of hyponatremia. I did order a CT of the soft tissue neck. This was done without contrast that she has a contrast allergy. I did review the images myself as well as the radiology report as described above. There is no evidence of abscess. She does have evidence of facial cellulitis. I did reassess the patient. She is having continued pain and so was given another dose of morphine IV. I did discuss the test results with her and recommended hospitalization for IV antibiotics. She does not require any acute surgical intervention at this time. I did treat her with Rocephin 2 g IV. I did discuss the case with the hospitalist and rehabilitation case coordinator. Impression & Plan Facial cellulitis, Odontalgia, Hyponatremia, Failure of outpatient treatment Discharge Plan Visit Data Chief Complaint: Dental/Oral Stated Complaint: DENTAL INFECTION ED Provider: Amrit Simon Discharge Problem: Facial cellulitis, Odontalgia, Hyponatremia, Failure of outpatient treatment Patient Disposition: Being Evaluated by Hospitalist Forms Stand Alone Forms: My [facility] Prescriptions Prescriptions: No Action cetirizine [Zyrtec] 10 mg Tablet 10 mg PO QAM PRN (Reason: Allergy Symptoms) gabapentin [Neurontin] 400 mg capsule 400 mg PO QID oxcarbazepine [Trileptal] 300 mg tablet 300 mg PO TID prochlorperazine maleate [Compazine] 10 mg tablet 10 mg PO Q6 PRN (Reason: Nausea) baclofen 10 mg tablet 10 mg PO BID omeprazole 20 mg capsule,delayed release(DR/EC) 20 mg PO QAM albuterol sulfate [Ventolin HFA] 90 mcg/actuation Hfa Aerosol Inhaler 2 puff INHALATION Q4 PRN (Reason: Shortness Of Breath Or Wheezing) fluticasone propionate [Flonase Allergy Relief] 50 mcg/actuation spray,suspension 2 spray intranasal HS PRN (Reason: Nasal Congestion) cholecalciferol (vitamin D3) [Vitamin D3] 1,000 unit Capsule 1,000 unit PO DAILY aripiprazole [Abilify] 5 mg tablet 5 mg PO DAILY duloxetine [Cymbalta] 30 mg capsule,delayed release(DR/EC) 30 mg PO QAM Rx Instructions: Take with 60mg to make 90mg fluticasone propion-salmeterol [Wixela Inhub] 500-50 mcg/dose blister with device 1 ea INHALATION BID hydroxyzine pamoate 50 mg Capsule 50 mg PO TID Citrucel (sucrose) Powder 1 tbsp PO QAM PRN (Reason: Constipation) Probiotic Blend 2 billion cell-50 mg Capsule 1 cap PO QAM levothyroxine 100 mcg tablet 100 mcg PO DAILYBB metoprolol succinate 25 mg tablet extended release 24 hr 25 mg PO DAILY duloxetine 60 mg capsule,delayed release(DR/EC) 60 mg PO QAM Rx Instructions: Take with 60mg to make 90mg Referrals Referrals: Wanda Mars MD [Primary Care Provider] -
[2022-02-18] MEDS: SODIUM CHLORIDE 0.9% 500 ML IV SCH (16:52)
--- NOTE | 2022-02-18 18:04 | CT Scan Report ---
CT soft tissue neck wo con CLINICAL HISTORY: left facial swelling eval for abscess Technique: Axial CT images of the soft tissues of the neck were obtained following intravenous admini stration of 100 cc of Omnipaque 300. Automated dose lowering techniques and/or adjustment according t o patient size were utilized for this exam. CT DOSE: 562.66 mGy.cm Comparison: Comparison is made to CT cervical spine 07/22/2008 Findings: There is fat stranding about the left mandibular soft tissues without evidence of drainable fluid col lection. The oropharynx, hypopharynx, larynx, and trachea are patent. Asymmetric lymph nodes are seen on the left measuring up to 9 mm in short axis. The parotid glands, submandibular glands, and thyroi d gland are unremarkable. Imaged portions of the brain parenchyma are unremarkable. The paranasal sinuses and mastoid air cell s are normal in appearance. Impression: No drainable fluid collection is seen. Soft tissue stranding in the left pupil/mandibular tissues are favored to represent cellulitis. There is reactive lymphadenopathy. ACT 112: Negative or not required by law. Electronically signed by: Didier Devlin M.D. 02/18/2022 6:03 PM
[2022-02-18] MEDS ORDERED: cefTRIAXone SODIUM 2,000 MG/70 ML BAG IV STA (18:28)
[2022-02-18] MEDS ORDERED: CETIRIZINE HCL 10 MG TABLET PO PRN (19:20)
[2022-02-18] MEDS ORDERED: ALBUTEROL HFA 8 GM INHALER INH PRN (19:20)
--- NOTE | 2022-02-18 19:37 | History & Physical Report ---
Date of Service February 18, 2022 Assessment & Plan (1) Facial cellulitis: (2) Infected tooth: (3) Teeth decayed: (4) Electrolyte abnormality: (5) Bipolar 1 disorder: (6) Asthma: (7) Hypothyroidism: (8) Sleep apnea: Plan Facial swelling and pain 2/2 cellulitis from teeth cavities/infection: -no s/s of posterior oropharyngeal swelling or infection -CT neck: did not show any abscess -will start pt on ceftriaxone and flagyl -pain management with oxycodone 10mg q6hr prn for severe pain and Tylenol for mild pain - will transition to Oral abx as the symptoms improve HypoNa+: -likely 2/2 Nausea and vomiting -pt is s/p NS - trend BMP and Zofran prn Teeth cavities: -sched to see oral surgeon as outpt Asthma 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: -will continue home inhalers -hold Bipap due to facial swelling and pain Fibromyalgia, chronic pain, DDD and Bipolar Disorder: -continue home meds Hypothyroidism: -continue levothyroxine Diet:soft heart healthy diet DVT PPx: Lovenox Code Status: FULL CODE Emergency Contact: DaughterScott [phone] History of Present Illness Chief Complaint: L facial swelling Primary Care Provider: Wanda Mars MD Pt is a 56 y/o F with hx of Bipolar disorder, asthma, CECI on BiPAP, Fibromyalgia, hypothyroidism, Chiari Malformation, DDD with chronic pain came into the ER with L facial swelling and pain. Per pt she has been having on and off teeth infection due to broken teeth on the L lower side. 1 week ago she noticed teeth pain again: pcp started pt on clinda but pt did not take it bc the pain initially resolved. Started to have pain again 2 days ago and yesterday noticed L lower jaw, lip and facial swelling. She also had episode of vomiting (NBNB). Today complained of L facial swelling, pain and nausea. Denied any abd pain, or fever or SOB or dysphagia. Allergies Allergy/AdvReac Type Severity Reaction Status Date / Time clomipramine Allergy Severe TARDIVE Verified 10/27/21 14:43 DYSKINESIA haloperidol Allergy Severe TARDIVE Verified 10/27/21 14:43 DYSKENESIA NSAIDS (Non-Steroidal Allergy Severe asthma Verified 10/27/21 14:43 Anti-Inflamma exacerbation olanzapine Allergy Severe TARDIVE Verified 10/27/21 14:43 DYSKENSIA pseudoephedrine Allergy Severe ASTHMA Verified 10/27/21 14:43 ISSUES risperidone Allergy Severe tardive Verified 10/27/21 14:43 dyskinesia Gadolinium-Containing Allergy Intermediate RASH Verified 10/27/21 14:43 Contrast Medi Iodinated Contrast Media Allergy Intermediate Rash Unverified 10/27/21 14:43 lithium Allergy Intermediate DIABETES Verified 10/27/21 14:43 INSIPIDOUS latex Allergy Mild skin rash, Verified 10/27/21 14:43 itchy pneumococcal vaccine Allergy Mild RASH Verified 10/27/21 14:43 iodine AdvReac Intermediate Rash on Unverified 10/27/21 14:43 Truck Home Medications Medication Instructions Recorded Confirmed Type albuterol sulfate 90 mcg/actuation 2 puff inhalation Q4 PRN Shortness 01/12/19 02/18/22 History aerosol inhaler (Ventolin HFA) Of Breath Or Wheezing aripiprazole 5 mg tablet (Abilify) 5 mg PO DAILY 01/12/19 02/18/22 History baclofen 10 mg tablet 10 mg PO BID 01/12/19 02/18/22 History cetirizine 10 mg tablet (Zyrtec) 10 mg PO QAM PRN Allergy Symptoms 01/12/19 02/18/22 History cholecalciferol (vitamin D3) 25 1,000 unit PO DAILY 01/12/19 02/18/22 History mcg (1,000 unit) capsule (Vitamin D3) duloxetine 30 mg capsule,delayed 30 mg PO QAM 01/12/19 02/18/22 History release (Cymbalta) fluticasone propionate 50 2 spray intranasal HS PRN Nasal 01/12/19 02/18/22 History mcg/actuation nasal Congestion spray,suspension (Flonase Allergy Relief) gabapentin 400 mg capsule 400 mg PO QID 01/12/19 02/18/22 History (Neurontin) omeprazole 20 mg capsule,delayed 20 mg PO QAM 01/12/19 02/18/22 History release oxcarbazepine 300 mg tablet 300 mg PO TID 01/12/19 02/18/22 History (Trileptal) prochlorperazine maleate 10 mg 10 mg PO Q6 PRN Nausea 01/12/19 02/18/22 History tablet (Compazine) fluticasone 500 mcg-salmeterol 50 1 ea inhalation BID 11/19/19 02/18/22 History mcg/dose blistr powdr for inhalation (Jessie Garcia) L.acidophil-L.casei-B.bifid-B.longum-FOS 1 cap PO QAM 08/19/20 02/18/22 History 2 billion cell-50 mg capsule (Probiotic Blend) hydroxyzine pamoate 50 mg capsule 50 mg PO TID 08/19/20 02/18/22 History methylcellulose (with sugar) oral 1 tbsp PO QAM PRN Constipation 08/19/20 02/18/22 History powder (Citrucel (sucrose) oral powder) duloxetine 60 mg capsule,delayed 60 mg PO QAM 10/27/21 02/18/22 History release levothyroxine 100 mcg tablet 100 mcg PO DAILYBB 10/27/21 02/18/22 History metoprolol succinate 25 mg 25 mg PO DAILY 10/27/21 02/18/22 History tablet,extended release 24 hr Past Med/Surg History Medical History (Updated 02/18/22 @ 19:35 by Abdi Pressley MD) Asthma Bipolar 1 disorder Chiari malformation Constipation Fatty liver Fibromyalgia Fusion of spine c2-5--stiff neck, however pt states able to move backward if needed for intubation Hiatal hernia History of anesthesia reaction during cholecysectomy in 1995 @ [facility] was told she had an asthma attack during the surgery pt unable to give further information. However pt has had multiple surgeries since without any further anesthesia issues. History of COVID-19 diagnosed 05/13/2020 @ [facility]--shortness of breath, pain in lungs, runny nose, loss of smell, malaise, body aches History of kidney stones History of MTHFR mutation Hypothyroidism Intracranial hypertension hx 2003 Left flank pain Migraine d/t chiari malformation Osteoarthritis PVC (premature ventricular contraction) Scoliosis mild Sleep apnea bipap (recalled, has not used since) Tachycardia follows with PCP, placed on Toprol. hx holter monitor with PCP. Temporomandibular joint disorder no bite block Unspecified asthma (07/24/12) inhaler daily/prn Surgical History History of bilateral tubal ligation History of brain shunt (~2003) for intracranial hypertension @ [facility] in 2003 History of brain surgery (~2002) decompression for chiari malformation 2002 @ [facility] History of carpal tunnel release of both wrists History of cholecystectomy History of colonoscopy History of dilatation and curettage x2 History of endometrial ablation History of esophagogastroduodenoscopy (EGD) History of tonsillectomy History of tooth extraction upper teeth Status post excision of lipoma Status post trigger finger release right hand middle finger Family History Brother Heart disease Family history of diabetes mellitus Father Heart disease Family history of diabetes mellitus Family hx colonic polyps Mother Family history of diabetes mellitus Sister Family history of diabetes mellitus Sister Family history of diabetes mellitus Uncle Family hx of colon cancer Other No family history of adverse response to anesthesia No pertinent family history in first degree relatives Social History Smoking Status: Former smoker Tobacco Type: Cigarettes Second Hand Exposure: No; Hx Alcohol Use: No Hx Substance Use: Yes Preferred Language: Macedonian Communication Ability: Effective Principal Cyber Engineer Required: No Beliefs That Will Affect Care: None Current Living Situation: Significant Other Feels Safe at Home: Yes Assistive Devices: BiPap, Denture - Upper and Glasses Review of Systems Review of Systems: At least 10 Review of systems were reviewed and all negative except as indicated in HPI Physical Exam Physical Exam: General:. NAD, well developed, well nourished, average body habitus HEENT:. multiple teeth cavities, L lower jaw soft tissue swelling, swelling of the lower lip, no skin erythema, no posterior oropharynx erythema or swelling but swelling of the L lower gum, Normal Conjunctiva, EOMI, Sclera is non-icteric Lungs:. No signs of respiratory distress, CTA, no wheezing or crackles Heart:. Normal S1, S2, no murmur Abdominal:. ND, Soft, NT MSK:. No deformities of UE and LE, No leg edema Skin:. no rash or open wound Psych:. AAOx3, normal affect Results & Data Results & Data ([facility]) Vital Signs (Past 12 Hours) Vital Signs Temp Pulse Pulse Resp BP BP Pulse Ox 02/18/22 18:12 36.4 C L 110 H 18 132/74 97 02/18/22 13:50 36.1 C L 114 H 14 129/79 94 O2 Del Method 02/18/22 18:12 Room Air 02/18/22 13:50 Room Air Laboratory Results Short CBC 02/18/22 Range/Units 14:28 WBC 12.25 H (4.8-10.8) K/ul Hgb 14.3 (12.0-16.0) g/dl Hct 40.3 (34.1-44.9) % Plt Count 338 (130-400) K/uL BMP 02/18/22 14:28 Sodium 130 L Potassium 4.1 Chloride 96 L Carbon Dioxide 25 BUN 12 Creatinine 0.62 Glucose 97 Calcium 9.7 Liver Function 02/18/22 Range/Units 14:28 Total Bilirubin 0.6 (0.2-1.0) mg/dl AST 17 (13-39) U/L ALT 18 (7-52) U/L Alkaline Phosphatase 100 (34-104) U/L Albumin 4.6 (3.4-5.0) gm/dl Diagnostic Findings Soft Tissue Neck CT 02/18/22 16:36 CT soft tissue neck wo con CLINICAL HISTORY: left facial swelling eval for abscess Technique: Axial CT images of the soft tissues of the neck were obtained following intravenous administration of 100 cc of Omnipaque 300. Automated dose lowering techniques and/or adjustment according to patient size were utilized for this exam. CT DOSE: 562.66 mGy.cm Comparison: Comparison is made to CT cervical spine 07/22/2008 Findings: There is fat stranding about the left mandibular soft tissues without evidence of drainable fluid collection. The oropharynx, hypopharynx, larynx, and trachea are patent. Asymmetric lymph nodes are seen on the left measuring up to 9 mm in short axis. The parotid glands, submandibular glands, and thyroid gland are unremarkable. Imaged portions of the brain parenchyma are unremarkable. The paranasal sinuses and mastoid air cells are normal in appearance. Impression: No drainable fluid collection is seen. Soft tissue stranding in the left pupil/mandibular tissues are favored to represent cellulitis. There is reactive lymphadenopathy. ACT 112: Negative or not required by law. Electronically signed by: Didier Devlin M.D. 02/18/2022 6:03 PM Code Status & VTE Plan VTE Prophylaxis Plan VTE Prophylaxis will be ordered: Yes
[2022-02-18] MEDS ORDERED: PSYLLIUM or GUAR GUM FIBER POWDER PACKET PO PRN (22:08)
[2022-02-18] MEDS ORDERED: ONDANSETRON INJ 2 MG/ML 2 ML VIAL IV PRN (22:26)
[2022-02-18] MEDS: OXcarbazepine 150 MG TABLET PO SCH (22:53)
[2022-02-18] MEDS: BACLOFEN 10 MG TAB PO SCH (22:54)
[2022-02-18] MEDS: GABAPENTIN 400 MG CAP PO SCH (22:54)
[2022-02-18] MEDS: hydrOXYzine HCl 25 MG TAB PO SCH (22:55)
[2022-02-18] MEDS: ACETAMINOPHEN 325 MG TAB PO PRN (23:11)
[2022-02-18] MEDS: oxyCODONE HCL IR 5 MG TAB (IMMEDIATE RELEASE) PO PRN (23:12)
[2022-02-19] MEDS: metroNIDAZOLE 500 MG/100 ML BAG IV SCH ×2 (00:39→06:46)
[2022-02-19] MEDS: ENOXAPARIN INJ 40 MG/0.4 ML SYR SQ SCH ×2 (03:36→20:57)
[2022-02-19] MEDS: oxyCODONE HCL IR 5 MG TAB (IMMEDIATE RELEASE) PO PRN ×2 (04:55→11:53)
[2022-02-19] MEDS: ACETAMINOPHEN 325 MG TAB PO PRN ×2 (04:55→15:43)
[2022-02-19] MEDS: SODIUM CHLORIDE 0.9% 500 ML IV SCH ×4 (06:11→11:49)
[2022-02-19] MEDS: LEVOTHYROXINE SODIUM 100 MCG TABLET PO SCH (06:12)
[2022-02-19 06:54] LABS: Basophils # (auto) 0.06 K/uL (0-0.2); Basophils % (auto) 0.6 %; Eosinophils # (auto) 0.11 K/uL (0-0.50); Eosinophils % (auto) 1.1 %; Hematocrit (blood only) 37.5 % (34.1-44.9); Hemoglobin 13.1 g/dl (12.0-16.0); Immature Granulocytes # (auto) 0.04 K/uL (0.00-0.02); Immature Granulocytes % (auto) 0.4 %; Lymphocytes # (auto) 1.43 K/uL (1.2-3.4); Lymphocytes % (auto) 14.1 %; Mean Corpuscular Hgb Conc 34.9 g/dL (32.0-36.0); Mean Platelet Volume 8.3 fL (9.4-12.3); Monocytes # (auto) 1.17 K/uL (0.24-0.82); Monocytes % (auto) 11.5 %; Neutrophils # (auto) 7.32 K/uL (1.4-6.5); Neutrophils % (auto) 72.3 %; Platelet Count 304 K/uL (130-400); RDW Coefficient of Variation 12.9 % (11.5-14.5); Red Blood Count 4.52 M/uL (3.93-5.22); White Blood Count 10.13 K/ul (4.8-10.8)
[2022-02-19 07:18] LABS: Albumin Globulin Ratio 1.8 (0.9-2); Albumin Level 4.2 gm/dl (3.4-5.0); BUN Creatinine Ratio 15.3 (10-20); Bilirubin,Total 0.7 mg/dl (0.2-1.0); Calcium 9.2 mg/dl (8.5-10.1); Creatinine Clr Calc Pharmacy 102.8 ml/min; Est GFR (African American) 108.5 ml/min; Est GFR (Non-African American) 93.6 ml/min; Globulin 2.4 gm/dl (2.5-4.0); Potassium 3.8 mmol/L (3.5-5.1); Total Protein 6.6 gm/dl (6.0-8.3)
[2022-02-19] MEDS: DULoxetine HCL 60 MG CAP PO SCH (08:04)
[2022-02-19] MEDS: ADVANCED PROBIOTIC 1250 MG CAPSULE PO SCH (08:04)
[2022-02-19] MEDS: ARIPiprazole 5 MG TAB PO SCH (08:04)
[2022-02-19] MEDS: PANTOprazole 40 MG TAB PO SCH (08:05)
[2022-02-19] MEDS: OXcarbazepine 150 MG TABLET PO SCH ×3 (08:05→20:59)
[2022-02-19] MEDS: METOPROLOL SUCC 25MG EXT REL TAB PO SCH (08:05)
[2022-02-19] MEDS: GABAPENTIN 400 MG CAP PO SCH ×4 (08:06→20:59)
[2022-02-19] MEDS: CHOLECALCIFEROL 1,000 UNITS 25 MCG TAB PO SCH (08:06)
[2022-02-19] MEDS: BACLOFEN 10 MG TAB PO SCH ×2 (08:07→20:59)
[2022-02-19] MEDS: DULoxetine HCL 30 MG CAP PO SCH (08:07)
[2022-02-19] MEDS: FLUTICASONE/VILANTEROL 200/25MCG 14 PUFFS/INHALER INH SCH (08:07)
[2022-02-19] MEDS: hydrOXYzine HCl 25 MG TAB PO SCH ×3 (08:08→20:58)
[2022-02-19 10:13] LABS: Albumin Level 4.1 gm/dl (3.4-5.0); Bilirubin Direct 0.2 mg/dl (0-0.2); Bilirubin,Total 0.7 mg/dl (0.2-1.0); Total Protein 6.5 gm/dl (6.0-8.3)
[2022-02-19] MEDS: SODIUM CHLORIDE 0.9% 1000ML 1,000 ML IV SCH ×2 (11:53→21:06)
--- NOTE | 2022-02-19 13:34 | Ultrasound Report ---
US duplex portal hepatic veins CLINICAL HISTORY: r/o cholecystitis,thrombosis TECHNIQUE: Grayscale, color and spectral waveform Doppler examination of the abdomen was performed. Comparison: Comparison is made to CT abdomen pelvis 01/12/2019 FINDINGS: The hepatic veins, portal veins, IVC and splenic vein are patent with no thrombus identified. Flow is in the correct direction. No ascites is seen. IMPRESSION: No portal vein thrombosis. ACT 112: Negative or not required by law. Electronically signed by: Didier Devlin M.D. 02/19/2022 1:33 PM
--- NOTE | 2022-02-19 14:37 | Gastrointestinal Consultation ---
Date of Consultation February 19, 2022 Assessment & Plan (1) Elevated LFTs: Because he is for normal prior to starting antibiotics, likely Rocephin. Bacteremia can also cause an elevation in LFTs. Can continue this antibiotic overnight and recheck LFTs tomorrow morning. If significantly higher again tomorrow then would need to change antibiotics. Will watch for liver/biliary ultrasound when available Will check LFTs tomorrow morning May continue diet as usual. Supervising Physician Co-Signing Physician Notes I have personally seen and examined the patient with NICOLE Worthy. Her note reflects my exam and findings. I agree with her impression and plan. Follow liver enzymes since some DILI may stabilize. If they get worse will have to change antibiotics. Jg Arndt M.D. History of Present Illness Reason for Consultation: Elevated LFTs Requesting Physician: Dr. Anne Attending Physician: Zina Anne MD History of Present Illness Ms. Delaney Thomas is a 56 yr old female pt of Dr. Jerad cox a hx of bipolar, fibromyalgia, hypothyroidism, asthma who presented to the ED yesterday afternoon for facial cellulitis. Her LFTs were normal on arrival and she hasn't had any abdominal pain or yellow eyes. She had a mildly elevated white count yesterday and after receiving Rocephin and metronidazole it normalized. She denies any new outpatient medications Doppler ultrasound without portal vein thrombosis. Liver ultrasound is pending. Allergies Allergy/AdvReac Type Severity Reaction Status Date / Time clomipramine Allergy Severe TARDIVE Verified 10/27/21 14:43 DYSKINESIA haloperidol Allergy Severe TARDIVE Verified 10/27/21 14:43 DYSKENESIA NSAIDS (Non-Steroidal Allergy Severe asthma Verified 10/27/21 14:43 Anti-Inflamma exacerbation olanzapine Allergy Severe TARDIVE Verified 10/27/21 14:43 DYSKENSIA pseudoephedrine Allergy Severe ASTHMA Verified 10/27/21 14:43 ISSUES risperidone Allergy Severe tardive Verified 10/27/21 14:43 dyskinesia Gadolinium-Containing Allergy Intermediate RASH Verified 10/27/21 14:43 Contrast Medi Iodinated Contrast Media Allergy Intermediate Rash Unverified 10/27/21 14:43 lithium Allergy Intermediate DIABETES Verified 10/27/21 14:43 INSIPIDOUS latex Allergy Mild skin rash, Verified 10/27/21 14:43 itchy pneumococcal vaccine Allergy Mild RASH Verified 10/27/21 14:43 iodine AdvReac Intermediate Rash on Unverified 10/27/21 14:43 Truck Home Medications Medication Instructions Recorded Confirmed Type albuterol sulfate 90 mcg/actuation 2 puff inhalation Q4 PRN Shortness 01/12/19 02/18/22 History aerosol inhaler (Ventolin HFA) Of Breath Or Wheezing aripiprazole 5 mg tablet (Abilify) 5 mg PO DAILY 01/12/19 02/18/22 History baclofen 10 mg tablet 10 mg PO BID 01/12/19 02/18/22 History cetirizine 10 mg tablet (Zyrtec) 10 mg PO QAM PRN Allergy Symptoms 01/12/19 02/18/22 History cholecalciferol (vitamin D3) 25 1,000 unit PO DAILY 01/12/19 02/18/22 History mcg (1,000 unit) capsule (Vitamin D3) duloxetine 30 mg capsule,delayed 30 mg PO QAM 01/12/19 02/18/22 History release (Cymbalta) fluticasone propionate 50 2 spray intranasal HS PRN Nasal 01/12/19 02/18/22 History mcg/actuation nasal Congestion spray,suspension (Flonase Allergy Relief) gabapentin 400 mg capsule 400 mg PO QID 01/12/19 02/18/22 History (Neurontin) omeprazole 20 mg capsule,delayed 20 mg PO QAM 01/12/19 02/18/22 History release oxcarbazepine 300 mg tablet 300 mg PO TID 01/12/19 02/18/22 History (Trileptal) prochlorperazine maleate 10 mg 10 mg PO Q6 PRN Nausea 01/12/19 02/18/22 History tablet (Compazine) fluticasone 500 mcg-salmeterol 50 1 ea inhalation BID 11/19/19 02/18/22 History mcg/dose blistr powdr for inhalation (Wixela Inhub) L.acidophil-L.casei-B.bifid-B.longum-FOS 1 cap PO QAM 08/19/20 02/18/22 History 2 billion cell-50 mg capsule (Probiotic Blend) hydroxyzine pamoate 50 mg capsule 50 mg PO TID 08/19/20 02/18/22 History methylcellulose (with sugar) oral 1 tbsp PO QAM PRN Constipation 08/19/20 02/18/22 History powder (Citrucel (sucrose) oral powder) duloxetine 60 mg capsule,delayed 60 mg PO QAM 10/27/21 02/18/22 History release levothyroxine 100 mcg tablet 100 mcg PO DAILYBB 10/27/21 02/18/22 History metoprolol succinate 25 mg 25 mg PO DAILY 10/27/21 02/18/22 History tablet,extended release 24 hr meloxicam 7.5 mg tablet 7.5 mg PO QAM 02/19/22 02/19/22 History Patient History Medical History (Updated 02/19/22 @ 16:02 by NICOLE Pihllips) Asthma Bipolar 1 disorder Chiari malformation Constipation Fatty liver Fibromyalgia Fusion of spine c2-5--stiff neck, however pt states able to move backward if needed for intubation Hiatal hernia History of anesthesia reaction during cholecysectomy in 1995 @ [facility] was told she had an asthma attack during the surgery pt unable to give further information. However pt has had mul tiple surgeries since without any further anesthesia issues. History of COVID-19 diagnosed 05/13/2020 @ [facility]--shortness of breath, pain in lungs, runny nose, loss of smell, malaise, body aches History of kidney stones History of MTHFR mutation Hypothyroidism Intracranial hypertension hx 2003 Left flank pain Migraine d/t chiari malformation Osteoarthritis PVC (premature ventricular contraction) Scoliosis mild Sleep apnea bipap (recalled, has not used since) Tachycardia follows with PCP, placed on Toprol. hx holter monitor with PCP. Temporomandibular joint disorder no bite block Unspecified asthma (07/24/12) inhaler daily/prn Surgical History History of bilateral tubal ligation History of brain shunt (~2003) for intracranial hypertension @ [facility] in 2003 History of brain surgery (~2002) decompression for chiari malformation 2002 @ [facility] History of carpal tunnel release of both wrists History of cholecystectomy History of colonoscopy History of dilatation and curettage x2 History of endometrial ablation History of esophagogastroduodenoscopy (EGD) History of tonsillectomy History of tooth extraction upper teeth Status post excision of lipoma Status post trigger finger release right hand middle finger Family History Brother Heart disease Family history of diabetes mellitus Father Heart disease Family history of diabetes mellitus Family hx colonic polyps Mother Family history of diabetes mellitus Sister Family history of diabetes mellitus Sister Family history of diabetes mellitus Uncle Family hx of colon cancer Other No family history of adverse response to anesthesia No pertinent family history in first degree relatives Social History Smoking Status: Former smoker Tobacco Type: Cigarettes Second Hand Exposure: No; Do You Dip or Chew Tobacco: No; Hx Alcohol Use: Yes Alcohol type: beer Hx Substance Use: No Preferred Language: Andorran Communication Ability: Effective Licensed Land Surveyor Required: No Beliefs That Will Affect Care: None Current Living Situation: Significant Other Feels Safe at Home: Yes Safety Concerns: Feels Safe At This Time Assistive Devices: None Assistive Devices Comment: Bipap ST Review of Systems Review of Systems: ROS: Gen: + facial pain; generalized body aches; Denies generalized weakness, fevers, weight loss Eyes: No eye redness, or pain, no recent vision changes Resp: No SOB, no cough Cardio: No palpitations/irregular beats, no chest pain GI: No abdominal pain, no nausea/vomiting : Denies pain on urination Skin: Red, tender, hot swollen left lower lip and surrounding skin. No jaundice, itching. Physical Exam Constitutional: WD/WN, vitals as above Eyes: PERRL, conjunctivae normal, anicteric sclerae ENMT: external ear and nose normal, oropharynx normal Red, tender, hot swollen left lower lip and surrounding skin. No jaundice, itching. Neck: trachea midline, no thyromegaly Respiratory: normal respiratory effort, lungs clear to auscultation Cardiovascular: RRR, no murmur, no edema Gastrointestinal (Abdomen): normal bowel sounds, soft, nontender, no hepatosplenomegaly Skin: no rashes, warm and dry no jaundice Neurologic: PERRL, EOMI, accommodation nl, no face palsy, no dysarthria Psychiatric: A+Ox3, euthymic affect Results & Data ([facility]) Vital Signs (Past 12 Hours) Vital Signs Temp Pulse Resp BP Pulse Ox O2 Del Method 02/19/22 08:00 37.3 C 87 16 114/70 93 Room Air 02/19/22 08:03 77 116/70 Laboratory Results WBC 10, Hb 13, HCT 37, PLT S304, NA 132, K3.8, CL 98, CO2 27, BUN 11, CR 0.72, glucose 104. T bili 0.7, D bili 0.2, AST 219, ALT 234, alk phos 225 Diagnostic Findings Portal VDUS: No portal vein thrombosis.
--- NOTE | 2022-02-19 14:51 | Hospitalist Progress Note ---
Date of Service February 19, 2022 Assessment & Plan (1) Facial cellulitis: (2) Infected tooth: (3) Teeth decayed: (4) Electrolyte abnormality: (5) Bipolar 1 disorder: (6) Asthma: (7) Hypothyroidism: (8) Sleep apnea: Plan Facial swelling and pain 2/2 cellulitis from teeth cavities/infection: -no s/s of posterior oropharyngeal swelling or infection -CT neck: did not show any abscess -Received IV ceftriaxone and IV Flagyl which were changed to IV Unasyn -pain management with oxycodone 10mg q6hr prn for severe pain and Tylenol for mild pain - will transition to Oral abx as the symptoms improve Abnormal LFT LFTs went up to significantly high this morning from normal as of yesterday New medications or antibiotics Acetaminophen and aspirin level are normal She does not have any significant symptoms of pain only had nausea for the last few days No portal vein thrombosis GI consulted and antibiotics changed to IV Unasyn Will monitor LFTs and will check hepatitis panel and blood culture HypoNa+: -likely 2/2 Nausea and vomiting -pt is s/p NS - trend BMP and Zofran prn Teeth cavities: -sched to see oral surgeon as outpt Asthma 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: -will continue home inhalers -hold Bipap due to facial swelling and pain Fibromyalgia, chronic pain, DDD and Bipolar Disorder: -continue home meds Hypothyroidism: -continue levothyroxine Diet:soft heart healthy diet DVT PPx: Lovenox Code Status: FULL CODE Emergency Contact: Abel [phone] Admission and Anticipated Discharge Date Admission Date: February 18, 2022 Subjective 02/19/2022 The patient was seen and examined in medical floor She was admitted with left facial swelling status post recent teeth extraction Minimal fever and nausea a few days prior to admission Denies any other significant symptoms Review of Systems Review of Systems: All systems reviewed and are unremarkable except as noted below Physical Exam Physical Exam: Lying in bed comfortably Constitutional: well developed, well nourished, + ill appearing and + obese Eyes: PERRL, conjunctivae normal, anicteric sclerae ENMT: Mouth: + lip abnormality (Left side) and + oropharynx abnormality (Inflamed and swelled) Left facial swelling and redness Neck: trachea midline, no thyromegaly Respiratory: no respiratory distress Auscultation: lungs clear to auscultation bilaterally Cardiovascular: Rate/Rhythm: regular rate and regular rhythm; not tachycardic Heart Sounds: normal S1 and normal S2; no murmur Extremities: no edema Gastrointestinal (Abdomen): Inspection/Auscultation: normal bowel sounds; abdo men not distended Percussion/Palpation: abdomen soft; abdomen nontender Musculoskeletal: No acute arthritis in any joint Neurologic: Alert, awake and oriented x3. Lymphatic: no cervical or axillary lymphadenopathy Results & Data Results & Data ([facility]) Vital Signs (Past 12 Hours) Vital Signs Temp Pulse Resp BP Pulse Ox O2 Del Method 02/19/22 08:00 37.3 C 87 16 114/70 93 Room Air 02/19/22 08:03 77 116/70 Laboratory Results Short CBC 02/19/22 Range/Units 06:13 WBC 10.13 (4.8-10.8) K/ul Hgb 13.1 (12.0-16.0) g/dl Hct 37.5 (34.1-44.9) % Plt Count 304 (130-400) K/uL BMP 02/18/22 02/19/22 14:28 06:13 Sodium 130 L 132 L Potassium 4.1 3.8 Chloride 96 L 98 Carbon Dioxide 25 27 BUN 12 11 Creatinine 0.62 0.72 Glucose 97 104 H Calcium 9.7 9.2 Liver Function 02/18/22 02/19/22 02/19/22 Range/Units 14:28 06:13 06:13 Total Bilirubin 0.6 0.7 0.7 (0.2-1.0) mg/dl Direct Bilirubin 0.2 (0-0.2) mg/dl AST 17 222 H 219 H (13-39) U/L ALT 18 234 H 234 H (7-52) U/L Alkaline Phosphatase 100 224 H D 225 H (34-104) U/L Albumin 4.6 4.2 4.1 (3.4-5.0) gm/dl Medications Administered Current Inpatient Medications Acetaminophen (Acetaminophen 325 Mg Tab) 650 mg PO Q4H PRN PRN Reason: pain/fever Stop: 03/20/22 22:25 Last Admin: 02/19/22 04:55 Dose: 650 mg Albuterol (Albuterol Hfa 8 Gm Inhaler) 2 puffs INH Q4 PRN PRN Reason: Shortness Of Breath Or Wheezing Stop: 03/20/22 19:19 Aripiprazole (Aripiprazole 5 Mg Tab) 5 mg PO DAILY [facility] Stop: 03/21/22 08:59 Last Admin: 02/19/22 08:04 Dose: 5 mg Baclofen (Baclofen 10 Mg Tab) 10 mg PO BID [facility] Stop: 03/20/22 20:59 Last Admin: 02/19/22 08:07 Dose: 10 mg Cetirizine HCl (Cetirizine Hcl 10 Mg Tablet) 10 mg PO QAM PRN PRN Reason: Allergy Symptoms Stop: 03/20/22 19:19 Duloxetine HCl (Duloxetine Hcl 30 Mg Cap) 30 mg PO QAM [facility] Stop: 03/21/22 08:59 Last Admin: 02/19/22 08:07 Dose: 30 mg Duloxetine HCl (Duloxetine Hcl 60 Mg Cap) 60 mg PO QAM [facility] Stop: 03/21/22 08:59 Last Admin: 02/19/22 08:04 Dose: 60 mg Enoxaparin Sodium (Enoxaparin Inj 40 Mg/0.4 Ml Syr) 40 mg SQ Q24H [facility] Stop: 03/20/22 21:59 Last Admin: 02/19/22 03:36 Dose: Not Given Fluticasone/Vilanterol (Fluticasone/Vilanterol 200/25mcg 14 Puffs/Inhaler) 1 puffs INH DAILY [facility]; Protocol Stop: 03/21/22 08:59 Last Admin: 02/19/22 08:07 Dose: 1 puffs Gabapentin (Gabapentin 400 Mg Cap) 400 mg PO QID [facility] Stop: 03/20/22 20:59 Last Admin: 02/19/22 13:39 Dose: 400 mg Hydroxyzine HCl (Hydroxyzine Hcl 25 Mg Tab) 50 mg PO TID [facility] Stop: 03/20/22 20:59 Last Admin: 02/19/22 13:40 Dose: 50 mg Sodium Chloride (Nss 1000ml) 1,000 mls @ 125 mls/hr IV .Q8H [facility] Stop: 03/21/22 11:59 Last Admin: 02/19/22 11:53 Dose: 125 mls/hr Ampicillin Sodium/Sulbactam Sodium 3,000 mg/ Sodium Chloride 108 mls @ 200 mls/hr IV Q6H [facility]; Protocol Stop: 02/26/22 14:59 Lactobacillus Acidophilus (Advanced Probiotic 1250 Mg Capsule) [facility]: 03/21/22 08:59 Last Admin: 02/19/22 08:04 Dose: 1 cap Levothyroxine Sodium (Levothyroxine Sodium 100 Mcg Tablet) 100 mcg PO DAILYBB [facility] Stop: 03/21/22 06:29 Last Admin: 02/19/22 06:12 Dose: 100 mcg Metoprolol Succinate (Metoprolol Succ 25mg Ext Rel Tab) 25 mg PO DAILY [facility] Stop: 03/21/22 08:59 Last Admin: 02/19/22 08:05 Dose: 25 mg Ondansetron HCl (Ondansetron Inj 2 Mg/Ml 2 Ml Vial) 4 mg IV Q6H PRN PRN Reason: Nausea Stop: 03/20/22 22:25 Last Admin: 02/18/22 23:13 Dose: 4 mg Oxcarbazepine (Oxcarbazepine 150 Mg Tablet) 300 mg PO TID [facility] Stop: 03/20/22 20:59 Last Admin: 02/19/22 13:39 Dose: 300 mg Oxycodone HCl (Oxycodone Hcl Ir 5 Mg Tab (Immediate Release)) 10 mg PO Q6H PRN PRN Reason: Severe Pain Stop: 03/04/22 22:25 Last Admin: 02/19/22 11:53 Dose: 10 mg Pantoprazole Sodium (Pantoprazole 40 Mg Tab) 40 mg PO QAM [facility]; Protocol Stop: 03/21/22 08:59 Last Admin: 02/19/22 08:05 Dose: 40 mg Psyllium Hydrophilic Mucilloid (Psyllium Or Guar Gum Fiber Powder Packet) 1 pkt PO QAM PRN PRN Reason: Constipation Stop: 03/20/22 22:07 Vitamin D (Cholecalciferol 1,000 Units 25 Mcg Tab) 1,000 units PO DAILY [facility] Stop: 03/21/22 08:59 Last Admin: 02/19/22 08:06 Dose: 1,000 units
[2022-02-19] MEDS: AMPICILLIN/SULBACTAM SOD 3,000 MG in 0.9 % SODIUM CHLORIDE 100 ML IV SCH ×2 (15:35→21:07)
[2022-02-19] MEDS ORDERED: cefTRIAXone SODIUM 2,000 MG in DEXTROSE 5% 50 ML IV SCH (18:00)
--- NOTE | 2022-02-19 20:57 | Ultrasound Report ---
ULTRASOUND RIGHT UPPER QUADRANT ABDOMEN CLINICAL HISTORY: Elevated hepatic transaminases. COMPARISON STUDY: Abdominal CT dated 01/12/2019. TECHNIQUE: Real-time, grayscale, and color flow sonography of the right upper quadrant of the abdomen was performed. Images are reviewed in the transverse and longitudinal planes. FINDINGS: Liver: The liver is mildly enlarged and slightly heterogeneous in echotexture. There is mild central intrahepatic biliary ductal dilatation, which is similar to previous. The main portal vein is patent. Gallbladder: The gallbladder is surgically absent. The common bile duct measures up to 1.0 cm in diam eter. Pancreas: Nonvisualized due to overlying bowel gas. Right kidney: Survey images of the right kidney demonstrate normal size and echotexture. There is no hydronephrosis. An echogenic focus in the interpolar region could represent a nonobstructing calculus . Ascites: None. IMPRESSION: 1. No acute sonographic abnormality is seen in the right upper quadrant noting status post cholecyste ctomy. 2. Mild hepatomegaly. ACT 112: Negative or not required by law. Electronically signed by: Josesito Malik M.D. 02/19/2022 8:55 PM
[2022-02-20] MEDS: ACETAMINOPHEN 325 MG TAB PO PRN ×2 (03:53→20:23)
[2022-02-20] MEDS: oxyCODONE HCL IR 5 MG TAB (IMMEDIATE RELEASE) PO PRN ×2 (03:53→20:23)
[2022-02-20] MEDS: AMPICILLIN/SULBACTAM SOD 3,000 MG in 0.9 % SODIUM CHLORIDE 100 ML IV SCH ×4 (03:54→20:53)
[2022-02-20] MEDS: SODIUM CHLORIDE 0.9% 1000ML 1,000 ML IV SCH ×3 (04:40→22:00)
[2022-02-20] MEDS: LEVOTHYROXINE SODIUM 100 MCG TABLET PO SCH (05:15)
[2022-02-20] MEDS: ARIPiprazole 5 MG TAB PO SCH (07:59)
[2022-02-20] MEDS: FLUTICASONE/VILANTEROL 200/25MCG 14 PUFFS/INHALER INH SCH (08:00)
[2022-02-20] MEDS: BACLOFEN 10 MG TAB PO SCH ×2 (08:00→20:24)
[2022-02-20] MEDS: DULoxetine HCL 60 MG CAP PO SCH (08:00)
[2022-02-20] MEDS: CHOLECALCIFEROL 1,000 UNITS 25 MCG TAB PO SCH (08:00)
[2022-02-20] MEDS: GABAPENTIN 400 MG CAP PO SCH ×4 (08:01→20:24)
[2022-02-20] MEDS: ADVANCED PROBIOTIC 1250 MG CAPSULE PO SCH (08:02)
[2022-02-20] MEDS: METOPROLOL SUCC 25MG EXT REL TAB PO SCH (08:02)
[2022-02-20] MEDS: hydrOXYzine HCl 25 MG TAB PO SCH ×3 (08:02→20:22)
[2022-02-20] MEDS: DULoxetine HCL 30 MG CAP PO SCH (08:03)
[2022-02-20] MEDS: PANTOprazole 40 MG TAB PO SCH (08:03)
[2022-02-20] MEDS: OXcarbazepine 150 MG TABLET PO SCH ×3 (08:03→20:23)
[2022-02-20 09:04] LABS: Basophils # (auto) 0.05 K/uL (0-0.2); Basophils % (auto) 0.9 %; Eosinophils # (auto) 0.19 K/uL (0-0.50); Eosinophils % (auto) 3.4 %; Hematocrit (blood only) 35.8 % (34.1-44.9); Immature Granulocytes # (auto) 0.02 K/uL (0.00-0.02); Immature Granulocytes % (auto) 0.4 %; Lymphocytes # (auto) 2.17 K/uL (1.2-3.4); Lymphocytes % (auto) 38.8 %; Mean Corpuscular Hemoglobin 28.4 pg (25.0-34.0); Mean Corpuscular Hgb Conc 33.5 g/dL (32.0-36.0); Mean Corpuscular Volume 84.8 fL (80.0-100.0); Mean Platelet Volume 8.3 fL (9.4-12.3); Monocytes # (auto) 0.62 K/uL (0.24-0.82); Monocytes % (auto) 11.1 %; Neutrophils # (auto) 2.55 K/uL (1.4-6.5); Neutrophils % (auto) 45.4 %; Platelet Count 281 K/uL (130-400); RDW Coefficient of Variation 13.2 % (11.5-14.5); RDW Standard Deviation 41.1 fL (36.4-46.3); Red Blood Count 4.22 M/uL (3.93-5.22)
[2022-02-20 09:40] LABS: Albumin Globulin Ratio 1.6 (0.9-2); Albumin Level 3.9 gm/dl (3.4-5.0); BUN Creatinine Ratio 13.3 (10-20); Bilirubin,Total 0.5 mg/dl (0.2-1.0); Calcium 8.9 mg/dl (8.5-10.1); Creatinine Clr Calc Pharmacy 123.4 ml/min; Est GFR (African American) 118.1 ml/min; Est GFR (Non-African American) 101.9 ml/min; Globulin 2.5 gm/dl (2.5-4.0); Potassium 3.9 mmol/L (3.5-5.1); Total Protein 6.4 gm/dl (6.0-8.3)
--- NOTE | 2022-02-20 09:51 | Gastroenterology Progress Note ---
Date of Service February 20, 2022 Assessment & Plan (1) Elevated LFTs: Plan: Likely secondary to antibiotics which were changed. LFT levels now decreasing since change in antibiotics. No evidence of biliary duct obstruction or primary liver issues. Plan Continue to trend LFTs. No plan for GI procedures of further testing. Admission and Anticipated Discharge Date Admission Date: February 18, 2022 Supervising Physician Co-Signing Physician Notes I have personally seen and examined the patient with NICOLE Worthy. Her note reflects my exam and findings. I agree with her impression and plan. Liver enzymes improving. Patient without abdominal pain. Jg Arndt M.D. Subjective 56 yr [facility] LFTs: normal on arrival, elevated yesterday, today, T Bili remains normal, AST and Alk Phos improved compared to yesterday, ALT similar to yesterday. Review of Systems Review of Systems: ROS: Gen: + facial pain; generalized body aches; Denies generalized weakness, fevers, weight loss Eyes: No eye redness, or pain, no recent vision changes Resp: No SOB, no cough Cardio: No palpitations/irregular beats, no chest pain GI: No abdominal pain, no nausea/vomiting : Denies pain on urination Skin: Red, tender, hot swollen left lower lip and surrounding skin. No jaundice, itching. Physical Exam Constitutional: WD/WN, vitals as above Eyes: PERRL, conjunctivae normal, anicteric sclerae ENMT: external ear and nose normal, oropharynx normal Neck: trachea midline, no thyromegaly Respiratory: normal respiratory effort, lungs clear to auscultation Cardiovascular: RRR, no murmur, no edema Gastrointestinal (Abdomen): normal bowel sounds, soft, nontender, no hepatosplenomegaly Skin: no rashes, warm and dry lip/face much improved, less edema, no redness or increased temp. Neurologic: PERRL, EOMI, accommodation nl, no face palsy, no dysarthria Psychiatric: A+Ox3, euthymic affect Results & Data ([facility]) Vital Signs (Past 12 Hours) Vital Signs Temp Pulse Resp BP Pulse Ox O2 Del Method 02/20/22 07:50 37.0 C 77 16 108/71 95 Room Air 02/19/22 22:48 36.8 C 81 20 107/67 95 Room Air Laboratory Results WBC 5.6, Hb 12, Hct 35, Plts 281, Na 137, K 3.9, Cl 103, CO2 29, BN 8, Cr 0.6. Diagnostic Findings Biliary US and VDUS of the liver on 02/19/22: normal.
--- NOTE | 2022-02-20 14:26 | Hospitalist Progress Note ---
Date of Service February 20, 2022 Assessment & Plan (1) Facial cellulitis: (2) Infected tooth: (3) Teeth decayed: (4) Electrolyte abnormality: (5) Bipolar 1 disorder: (6) Asthma: (7) Hypothyroidism: (8) Sleep apnea: Plan Facial swelling and pain 2/2 cellulitis from teeth cavities/infection: -no s/s of posterior oropharyngeal swelling or infection -CT neck: did not show any abscess -Received IV ceftriaxone and IV Flagyl which were changed to IV Unasyn -pain management with oxycodone 10mg q6hr prn for severe pain and Tylenol for mild pain - will transition to Oral abx as the symptoms improve Abnormal LFT LFTS elevated, but improving Acetaminophen and aspirin level are normal She does not have any significant symptoms of pain only had nausea for the last few days Union 2/2 antibiotics, therefore they were switched No portal vein thrombosis GI consulted and antibiotics changed to IV Unasyn Will monitor LFTs and will check hepatitis panel and blood culture LFts improving HypoNa+: -likely 2/2 Nausea and vomiting -pt is s/p NS - trend BMP and Zofran prn -sodium normalized Teeth cavities: -sched to see oral surgeon as outpt Asthma 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: -will continue home inhalers -hold Bipap due to facial swelling and pain Fibromyalgia, chronic pain, DDD and Bipolar Disorder: -continue home meds Hypothyroidism: -continue levothyroxine Diet:soft heart healthy diet DVT PPx: Lovenox Code Status: FULL CODE Emergency Contact: DaughterScott [phone] Pt was seen and examined in collaboration with Dr. Anne, please see addendum Admission and Anticipated Discharge Date Admission Date: February 18, 2022 Supervising Physician Co-Signing Physician Notes Attending addendum: The patient was seen and examined in medical floor She has been feeling much better and the swelling of the left face, cheek and lip has improved a lot Has had serosanguineous drainage is from the cheek No redness and no significant tenderness Upon examination Decreased swelling of the left face, cheek and lips Hemodynamically stable Chest-clear to auscultate bilaterally HeartS1-S2, regular Abdomen-benign Extremities-negative Her labs and imaging studies reviewed LFTs are getting better Hepatitis panel is pending Appreciate GI input Agree with assessment and plan as outlined above by Khloedeepti Anne Subjective Pt was seen and examined in room 356-2. Follow up L facial cellulitis. She feels her swelling has improved. Yesterday she was able express pus from her lower L tooth. She feels the antibiotic being switched helped. She denies f/c/s, chest pain, sob, n/v/d, abd pain. Is wishing to see oral surgeon earlier then next week. Review of Systems Review of Systems: All systems reviewed & are unremarkable except as noted in HPI & below Physical Exam Physical Exam: Gen: WD/WN, NAD, A&O x3 HEENT: Normocephalic, atraumatic, conjunctivae moist, sclerae anicteric, mucous membranes moist, poor dentition, L facial swelling, firmness, no warmth Lung: Clear to Auscultation bilaterally, no wheezes/rales/rhonchi Heart: Regular rate, regular rhythm, no murmurs, rubs, or gallops Abdomen: Soft, NT, ND +BS x 4 Extremities: No edema Skin: Warm, no rash, negative turgor. Results & Data Results & Data ([facility]) Vital Signs (Past 12 Hours) Vital Signs Temp Pulse Resp BP Pulse Ox O2 Del Method 02/20/22 07:50 37.0 C 77 16 108/71 95 Room Air Laboratory Results Short CBC 02/20/22 Range/Units 08:29 WBC 5.60 (4.8-10.8) K/ul Hgb 12.0 (12.0-16.0) g/dl Hct 35.8 (34.1-44.9) % Plt Count 281 (130-400) K/uL BMP 02/20/22 08:29 Sodium 137 Potassium 3.9 Chloride 103 Carbon Dioxide 29 BUN 8 Creatinine 0.60 Glucose 85 Calcium 8.9 Liver Function 02/20/22 Range/Units 08:29 Total Bilirubin 0.5 (0.2-1.0) mg/dl AST 128 H (13-39) U/L ALT 248 H (7-52) U/L Alkaline Phosphatase 182 H (34-104) U/L Albumin 3.9 (3.4-5.0) gm/dl Medications Administered Current Inpatient Medications Acetaminophen (Acetaminophen 325 Mg Tab) 650 mg PO Q4H PRN PRN Reason: pain/fever Stop: 03/20/22 22:25 Last Admin: 02/20/22 03:53 Dose: 650 mg Albuterol (Albuterol Hfa 8 Gm Inhaler) 2 puffs INH Q4 PRN PRN Reason: Shortness Of Breath Or Wheezing Stop: 03/20/22 19:19 Aripiprazole (Aripiprazole 5 Mg Tab) 5 mg PO DAILY [facility] Stop: 03/21/22 08:59 Last Admin: 02/20/22 07:59 Dose: 5 mg Baclofen (Baclofen 10 Mg Tab) 10 mg PO BID [facility] Stop: 03/20/22 20:59 Last Admin: 02/20/22 08:00 Dose: 10 mg Cetirizine HCl (Cetirizine Hcl 10 Mg Tablet) 10 mg PO QAM PRN PRN Reason: Allergy Symptoms Stop: 03/20/22 19:19 Duloxetine HCl (Duloxetine Hcl 30 Mg Cap) 30 mg PO QAM [facility] Stop: 03/21/22 08:59 Last Admin: 02/20/22 08:03 Dose: 30 mg Duloxetine HCl (Duloxetine Hcl 60 Mg Cap) 60 mg PO QAM [facility] Stop: 03/21/22 08:59 Last Admin: 02/20/22 08:00 Dose: 60 mg Enoxaparin Sodium (Enoxaparin Inj 40 Mg/0.4 Ml Syr) 40 mg SQ Q24H [facility] Stop: 03/20/22 21:59 Last Admin: 02/19/22 20:57 Dose: 40 mg Fluticasone/Vilanterol (Fluticasone/Vilanterol 200/25mcg 14 Puffs/Inhaler) 1 puffs INH DAILY [facility]; Protocol Stop: 03/21/22 08:59 Last Admin: 02/20/22 08:00 Dose: 1 puffs Gabapentin (Gabapentin 400 Mg Cap) 400 mg PO QID [facility] Stop: 03/20/22 20:59 Last Admin: 02/20/22 08:01 Dose: 400 mg Hydroxyzine HCl (Hydroxyzine Hcl 25 Mg Tab) 50 mg PO TID [facility] Stop: 03/20/22 20:59 Last Admin: 02/20/22 08:02 Dose: 50 mg Sodium Chloride (Nss 1000ml) 1,000 mls @ 125 mls/hr IV .Q8H [facility] Stop: 03/21/22 11:59 Last Admin: 02/20/22 13:26 Dose: 125 mls/hr Ampicillin Sodium/Sulbactam Sodium 3,000 mg/ Sodium Chloride 108 mls @ 200 mls/hr IV Q6H [facility]; Protocol Stop: 02/26/22 14:59 Last Infusion: 02/20/22 13:38 Dose: Infused Lactobacillus Acidophilus (Advanced Probiotic 1250 Mg Capsule) 1 cap PO QAM [facility] Stop: 03/21/22 08:59 Last Admin: 02/20/22 08:02 Dose: 1 cap Levothyroxine Sodium (Levothyroxine Sodium 100 Mcg Tablet) 100 mcg PO DAILYBB [facility] Stop: 03/21/22 06:29 Last Admin: 02/20/22 05:15 Dose: 100 mcg Metoprolol Succinate (Metoprolol Succ 25mg Ext Rel Tab) 25 mg PO DAILY [facility] Stop: 03/21/22 08:59 Last Admin: 02/20/22 08:02 Dose: 25 mg Ondansetron HCl (Ondansetron Inj 2 Mg/Ml 2 Ml Vial) 4 mg IV Q6H PRN PRN Reason: Nausea Stop: 03/20/22 22:25 Last Admin: 02/18/22 23:13 Dose: 4 mg Oxcarbazepine (Oxcarbazepine 150 Mg Tablet) 300 mg PO TID [facility] Stop: 03/20/22 20:59 Last Admin: 02/20/22 08:03 Dose: 300 mg Oxycodone HCl (Oxycodone Hcl Ir 5 Mg Tab (Immediate Release)) 10 mg PO Q6H PRN PRN Reason: Severe Pain Stop: 03/04/22 22:25 Last Admin: 02/20/22 03:53 Dose: 10 mg Pantoprazole Sodium (Pantoprazole 40 Mg Tab) 40 mg PO QAM [facility]; Protocol Stop: 03/21/22 08:59 Last Admin: 02/20/22 08:03 Dose: 40 mg Psyllium Hydrophilic Mucilloid (Psyllium Or Guar Gum Fiber Powder Packet) 1 pkt PO QAM PRN PRN Reason: Constipation Stop: 03/20/22 22:07 Vitamin D (Cholecalciferol 1,000 Units 25 Mcg Tab) 1,000 units PO DAILY [facility] Stop: 03/21/22 08:59 Last Admin: 02/20/22 08:00 Dose: 1,000 units
[2022-02-20] MEDS: ENOXAPARIN INJ 40 MG/0.4 ML SYR SQ SCH (20:24)
[2022-02-21] MEDS: AMPICILLIN/SULBACTAM SOD 3,000 MG in 0.9 % SODIUM CHLORIDE 100 ML IV SCH ×3 (03:07→14:05)
[2022-02-21] MEDS: LEVOTHYROXINE SODIUM 100 MCG TABLET PO SCH (06:01)
[2022-02-21 07:04] LABS: Albumin Globulin Ratio 1.5 (0.9-2); Albumin Level 3.6 gm/dl (3.4-5.0); BUN Creatinine Ratio 10.9 (10-20); Bilirubin,Total 0.4 mg/dl (0.2-1.0); Calcium 8.8 mg/dl (8.5-10.1); Creatinine Clr Calc Pharmacy 115.7 ml/min; Est GFR (African American) 115.6 ml/min; Est GFR (Non-African American) 99.8 ml/min; Globulin 2.4 gm/dl (2.5-4.0); Potassium 3.9 mmol/L (3.5-5.1)
[2022-02-21] MEDS: SODIUM CHLORIDE 0.9% 1000ML 1,000 ML IV SCH (07:42)
[2022-02-21] MEDS: DULoxetine HCL 60 MG CAP PO SCH (08:20)
[2022-02-21] MEDS: METOPROLOL SUCC 25MG EXT REL TAB PO SCH (08:20)
[2022-02-21] MEDS: ARIPiprazole 5 MG TAB PO SCH (08:20)
[2022-02-21] MEDS: DULoxetine HCL 30 MG CAP PO SCH (08:20)
[2022-02-21] MEDS: GABAPENTIN 400 MG CAP PO SCH ×2 (08:20→15:16)
[2022-02-21] MEDS: CHOLECALCIFEROL 1,000 UNITS 25 MCG TAB PO SCH (08:20)
[2022-02-21] MEDS: ADVANCED PROBIOTIC 1250 MG CAPSULE PO SCH (08:20)
[2022-02-21] MEDS: BACLOFEN 10 MG TAB PO SCH (08:20)
[2022-02-21] MEDS: hydrOXYzine HCl 25 MG TAB PO SCH ×2 (08:21→15:16)
[2022-02-21] MEDS: PANTOprazole 40 MG TAB PO SCH (08:21)
[2022-02-21] MEDS: FLUTICASONE/VILANTEROL 200/25MCG 14 PUFFS/INHALER INH SCH (08:21)
[2022-02-21] MEDS: OXcarbazepine 150 MG TABLET PO SCH ×2 (08:21→15:16)
--- NOTE | 2022-02-21 14:24 | Hospitalist Progress Note ---
Date of Service February 21, 2022 Assessment & Plan (1) Facial cellulitis: (2) Infected tooth: (3) Teeth decayed: (4) Electrolyte abnormality: (5) Bipolar 1 disorder: (6) Asthma: (7) Hypothyroidism: (8) Sleep apnea: Plan Facial swelling and pain 2/2 cellulitis from teeth cavities/infection: -no s/s of posterior oropharyngeal swelling or infection -CT neck: did not show any abscess -Received IV ceftriaxone and IV Flagyl which were changed to IV Unasyn -pain management with oxycodone 10mg q6hr prn for severe pain and Tylenol for mild pain - will transition to Oral abx as the symptoms improve -Facial swelling has improved a lot and the patient has been tolerating regular diet -She will be discharged home this afternoon on oral Augmentin to finish the course of antibiotic -She was strongly advised to keep appointment with the pharyngeal surgeon or even see him or her sooner Abnormal LFT LFTS elevated, but improving Acetaminophen and aspirin level are normal She does not have any significant symptoms of pain only had nausea for the last few days [place] 2/2 antibiotics, therefore they were switched No portal vein thrombosis GI consulted and antibiotics changed to IV Unasyn Will monitor LFTs and will check hepatitis panel and blood culture LFTs are improved significantly Hepatitis panel is pending HypoNa+: -likely 2/2 Nausea and vomiting -pt is s/p NS - trend BMP and Zofran prn -sodium normalized Teeth cavities: -sched to see oral surgeon as outpt Asthma 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: -will continue home inhalers -hold Bipap due to facial swelling and pain Fibromyalgia, chronic pain, DDD and Bipolar Disorder: -continue home meds Hypothyroidism: -continue levothyroxine Diet:soft heart healthy diet DVT PPx: Lovenox Code Status: FULL CODE Emergency Contact: DaughterScott [phone] Discharge home this afternoon Admission and Anticipated Discharge Date Admission Date: February 18, 2022 Subjective 02/19/2022 The patient was seen and examined in medical floor She was admitted with left facial swelling status post recent teeth extraction Minimal fever and nausea a few days prior to admission Denies any other significant symptoms 02/21/2022 The patient was seen and examined in medical floor She has been feeling much better and the swelling of the left face has almost resolved She denies any fever and or chills Has been able to take regular food Review of Systems Review of Systems: All systems reviewed and are unremarkable except as noted below Physical Exam Physical Exam: Lying in bed comfortably Constitutional: well developed, well nourished, + ill appearing and + obese Eyes: PERRL, conjunctivae normal, anicteric sclerae ENMT: Mouth: + lip abnormality (Left side) and + oropharynx abnormality (Inflamed and swelled) Neck: trachea midline, no thyromegaly Respiratory: no respiratory distress Auscultation: lungs clear to auscultation bilaterally Cardiovascular: Rate/Rhythm: regular rate and regular rhythm; not tachycardic Heart Sounds: normal S1 and normal S2; no murmur Extremities: no edema Gastrointestinal (Abdomen): Inspection/Auscultation: normal bowel sounds; abdomen not distended Percussion/Palpation: abdomen soft; abdomen nontender Musculoskeletal: No acute arthritis in any joint Neurologic: normal touch/pain/proprioception and moves all extremities; no focal motor deficits Psychiatric: A+Ox3, euthymic affect Lymphatic: no cervical or axillary lymphadenopathy Results & Data Results & Data ([facility]) Vital Signs (Past 12 Hours) Vital Signs Temp Pulse Resp BP Pulse Ox O2 Del Method 02/21/22 07:20 36.8 C 77 18 160/79 H 95 Room Air Laboratory Results [facility] 02/21/22 06:19 Sodium 140 Potassium 3.9 Chloride 106 Carbon Dioxide 29 BUN 7 Creatinine 0.64 Glucose 83 Calcium 8.8 Liver Function 02/21/22 Range/Units 06:19 Total Bilirubin 0.4 (0.2-1.0) mg/dl AST 49 H (13-39) U/L ALT 149 H (7-52) U/L Alkaline Phosphatase 163 H (34-104) U/L Albumin 3.6 (3.4-5.0) gm/dl Medications Administered Current Inpatient Medications Acetaminophen (Acetaminophen 325 Mg Tab) 650 mg PO Q4H PRN PRN Reason: pain/fever Stop: 03/20/22 22:25 Last Admin: 02/20/22 20:23 Dose: 650 mg Albuterol (Albuterol Hfa 8 Gm Inhaler) 2 puffs INH Q4 PRN PRN Reason: Shortness Of Breath Or Wheezing Stop: 03/20/22 19:19 Aripiprazole (Aripiprazole 5 Mg Tab) 5 mg PO DAILY EVELYN Stop: 03/21/22 08:59 Last Admin: 02/21/22 08:20 Dose: 5 mg Baclofen (Baclofen 10 Mg Tab) 10 mg PO BID EVELYN Stop: 03/20/22 20:59 Last Admin: 02/21/22 08:20 Dose: 10 mg Cetirizine HCl (Cetirizine Hcl 10 Mg Tablet) 10 mg PO QAM PRN PRN Reason: Allergy Symptoms Stop: 03/20/22 19:19 Duloxetine HCl (Duloxetine Hcl 30 Mg Cap) 30 mg PO QAM EVELYN Stop: 03/21/22 08:59 Last Admin: 02/21/22 08:20 Dose: 30 mg Duloxetine HCl (Duloxetine Hcl 60 Mg Cap) 60 mg PO QAM EVELYN Stop: 03/21/22 08:59 Last Admin: 02/21/22 08:20 Dose: 60 mg Enoxaparin Sodium (Enoxaparin Inj 40 Mg/0.4 Ml Syr) 40 mg SQ Q24H EVELYN Stop: 03/20/22 21:59 Last Admin: 02/20/22 20:24 Dose: 40 mg Fluticasone/Vilanterol (Fluticasone/Vilanterol 200/25mcg 14 Puffs/Inhaler) 1 puffs INH DAILY [facility]; Protocol Stop: 03/21/22 08:59 Last Admin: 02/21/22 08:21 Dose: 1 puffs Gabapentin (Gabapentin 400 Mg Cap) 400 mg PO QID EVELYN Stop: 03/20/22 20:59 Last Admin: 02/21/22 08:20 Dose: 400 mg Hydroxyzine HCl (Hydroxyzine Hcl 25 Mg Tab) 50 mg PO TID EVELYN Stop: 03/20/22 20:59 Last Admin: 02/21/22 08:21 Dose: 50 mg Sodium Chloride (Nss 1000ml) 1,000 mls @ 125 mls/hr IV .Q8H EVELYN Stop: 03/21/22 11:59 Last Admin: 02/21/22 07:42 Dose: 125 mls/hr Ampicillin Sodium/Sulbactam Sodium 3,000 mg/ Sodium Chloride 108 mls @ 200 mls/hr IV Q6H [facility]ELYN; Protocol Stop: 02/26/22 14:59 Last Admin: 02/21/22 14:05 Dose: 216 mls/hr Lactobacillus Acidophilus (Advanced Probiotic 1250 Mg Capsule) 1 cap PO QAM [facility] Stop: 03/21/22 08:59 Last Admin: 02/21/22 08:20 Dose: 1 cap Levothyroxine Sodium (Levothyroxine Sodium 100 Mcg Tablet) 100 mcg PO DAILYBB [facility] Stop: 03/21/22 06:29 Last Admin: 02/21/22 06:01 Dose: 100 mcg Metoprolol Succinate (Metoprolol Succ 25mg Ext Rel Tab) 25 mg PO DAILY [facility] Stop: 03/21/22 08:59 Last Admin: 02/21/22 08:20 Dose: 25 mg Ondansetron HCl (Ondansetron Inj 2 Mg/Ml 2 Ml Vial) 4 mg IV Q6H PRN PRN Reason: Nausea Stop: 03/20/22 22:25 Last Admin: 02/18/22 23:13 Dose: 4 mg Oxcarbazepine (Oxcarbazepine 150 Mg Tablet) 300 mg PO TID [facility] Stop: 03/20/22 20:59 Last Admin: 02/21/22 08:21 Dose: 300 mg Oxycodone HCl (Oxycodone Hcl Ir 5 Mg Tab (Immediate Release)) 10 mg PO Q6H PRN PRN Reason: Severe Pain Stop: 03/04/22 22:25 Last Admin: 02/20/22 20:23 Dose: 10 mg Pantoprazole Sodium (Pantoprazole 40 Mg Tab) 40 mg PO QAM [facility]; Protocol Stop: 03/21/22 08:59 Last Admin: 02/21/22 08:21 Dose: 40 mg Psyllium Hydrophilic Mucilloid (Psyllium Or Guar Gum Fiber Powder Packet) 1 pkt PO QAM PRN PRN Reason: Constipation Stop: 03/20/22 22:07 Vitamin D (Cholecalciferol 1,000 Units 25 Mcg Tab) 1,000 units PO DAILY [facility] Stop: 03/21/22 08:59 Last Admin: 02/21/22 08:20 Dose: 1,000 units
[2022-02-21 14:55] LABS: HBSAG NON-REACTIVE (NON-REACTIVE); Hepatitis A Antibody IgM NON-REACTIVE (NON-REACTIVE); Hepatitis B Core Antibody IgM NON-REACTIVE (NON-REACTIVE)
[2022-02-21] MEDS ORDERED: AMOXICILLIN/CLAVULANATE 875 MG TAB PO SCH (17:00)
--- NOTE | 2022-02-22 07:26 | Discharge Summary ---
Date of Service February 22, 2022 Admission HPI Per Admitting Provider Pt is a 56 y/o F with hx of Bipolar disorder, asthma, CECI on BiPAP, Fibromyalgia, hypothyroidism, Chiari Malformation, DDD with chronic pain came into the ER with L facial swelling and pain. Per pt she has been having on and off teeth infection due to broken teeth on the L lower side. 1 week ago she noticed teeth pain again: pcp started pt on clinda but pt did not take it bc the pain initially resolved. Started to have pain again 2 days ago and yesterday noticed L lower jaw, lip and facial swelling. She also had episode of vomiting (NBNB). Today complained of L facial swelling, pain and nausea. Denied any abd pain, or fever or SOB or dysphagia. Admission Exam Per Admitting Provider Physical Exam: General:.NAD, well developed, well nourished, average body habitus HEENT:. multiple teeth cavities, L lower jaw soft tissue swelling, swelling of the lower lip, no skin erythema, no posterior oropharynx erythema or swelling but swelling of the L lower gum, Normal Conjunctiva, EOMI, Sclera is non-icteric Lungs:.No signs of respiratory distress, CTA, no wheezing or crackles Heart:.Normal S1, S2, no murmur Abdominal:.ND, Soft, NT MSK:.No deformities of UE and LE, No leg edema Skin:.no rash or open wound Psych:.AAOx3, normal affect Principal Diagnosis Left facial cellulitis, no evidence of dental abscess on CT scan, abnormal liver function test likely secondary to ceftriaxone,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 Discharge Exam Lying in bed comfortably Constitutional well developed, well nourished, + ill appearing and + obese Eyes PERRL, conjunctivae normal, anicteric sclerae ENMT Mouth: + lip abnormality (Left side) and + oropharynx abnormality (Inflamed and swelled) Neck trachea midline, no thyromegaly Respiratory no respiratory distress Auscultation: lungs clear to auscultation bilaterally Cardiovascular Rate/Rhythm: regular rate and regular rhythm; not tachycardic Heart Sounds: normal S1 and normal S2; no murmur Extremities: no edema Gastrointestinal (Abdomen) Inspection/Auscultation: normal bowel sounds; abdomen not distended Percussion/Palpation: abdomen soft; abdomen nontender Neurologic normal touch/pain/proprioception and moves all extremities; no focal motor deficits Psychiatric A+Ox3, euthymic affect Lymphatic no cervical or axillary lymphadenopathy Discharge Data Allergies Allergy/AdvReac Type Severity Reaction Status Date / Time clomipramine Allergy Severe TARDIVE Verified 10/27/21 14:43 DYSKINESIA haloperidol Allergy Severe TARDIVE Verified 10/27/21 14:43 DYSKENESIA NSAIDS (Non-Steroidal Allergy Severe asthma Verified 10/27/21 14:43 Anti-Inflamma exacerbation olanzapine Allergy Severe TARDIVE Verified 10/27/21 14:43 DYSKENSIA pseudoephedrine Allergy Severe ASTHMA Verified 10/27/21 14:43 ISSUES risperidone Allergy Severe tardive Verified 10/27/21 14:43 dyskinesia Gadolinium-Containing Allergy Intermediate RASH Verified 10/27/21 14:43 Contrast Medi Iodinated Contrast Media Allergy Intermediate Rash Unverified 10/27/21 14:43 lithium Allergy Intermediate DIABETES Verified 10/27/21 14:43 INSIPIDOUS latex Allergy Mild skin rash, Verified 10/27/21 14:43 itchy pneumococcal vaccine Allergy Mild RASH Verified 10/27/21 14:43 iodine AdvReac Intermediate Rash on Unverified 10/27/21 14:43 Truck Consultations 02/18/22 18:27 ED Decision to Admit Stat 02/19/22 10:49 Consult Gastroenterology Routine Ordered Studies 02/18/22 16:36 CT soft tissue neck wo con Stat 02/19/22 10:54 US duplex portal hepatic veins Urgent 02/19/22 13:54 US abdomen limited Urgent Hospital Course (1) Facial cellulitis: (2) Infected tooth: (3) Teeth decayed: (4) Electrolyte abnormality: (5) Bipolar 1 disorder: (6) Asthma: (7) Hypothyroidism: (8) Sleep apnea: Plan Facial swelling and pain 2/2 cellulitis from teeth cavities/infection: -no s/s of posterior oropharyngeal swelling or infection -CT neck: did not show any abscess -Received IV ceftriaxone and IV Flagyl which were changed to IV Unasyn -pain management with oxycodone 10mg q6hr prn for severe pain and Tylenol for mild pain - will transition to Oral abx as the symptoms improve -Facial swelling has improved a lot and the patient has been tolerating regular diet -She will be discharged home this afternoon on oral Augmentin to finish the course of antibiotic -She was strongly advised to keep appointment with the pharyngeal surgeon or even see him or her sooner Abnormal LFT LFTS elevated, but improving Acetaminophen and aspirin level are normal She does not have any significant symptoms of pain only had nausea for the last few days [place] 2/2 antibiotics, therefore they were switched No portal vein thrombosis GI consulted and antibiotics changed to IV Unasyn Will monitor LFTs and will check hepatitis panel and blood culture LFTs are improved significantly Hepatitis panel is pending HypoNa+: -likely 2/2 Nausea and vomiting -pt is s/p NS - trend BMP and Zofran prn -sodium normalized Teeth cavities: -sched to see oral surgeon as outpt Asthma 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: -will continue home inhalers -hold Bipap due to facial swelling and pain Fibromyalgia, chronic pain, DDD and Bipolar Disorder: -continue home meds Hypothyroidism: -continue levothyroxine Diet:soft heart healthy diet DVT PPx: Lovenox Code Status: FULL CODE Emergency Contact: DaughterScott [phone] Discharge home this afternoon Total Time Total Time Spent Total Time Spent (In Minutes): 35 MINUTES Discharge Plan Discharge Items Patient Disposition: Home - Self-Care Reason For Visit: L FACIAL CELLULITIS Discharge Diagnosis: Left facial cellulitis, no evidence of dental abscess on CT scan, abnormal liver function test likely secondary to ceftriaxone,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 Condition on Discharge: Good Activity: Resume your previous activity Non-emergency contact: Primary Care Provider Call non-emergency contact if: you have any medication questions and your symptoms worsen Follow-up/Referrals: Wanda Mars MD [Primary Care Provider] - (Date & Time 02/27/2022 2:00 PM Provider Wanda Mars MD [facility] ) Diet: Heart Healthy Addtl Attending Provider Instructions: Please take precautions to avoid falls Finish the course of her antibiotic Try to maintain oral hygiene as advised Try to get an early appointment with your dentist/orofacial surgeon Pending Studies at Discharge: No Stand-Alone Forms: [employer], Smoking Cessation Medications and DC Order Prescriptions: New amoxicillin-pot clavulanate 875-125 mg Tablet 1 tab PO BIDM Qty: 14 0RF Continued cetirizine [Zyrtec] 10 mg Tablet 10 mg PO QAM PRN (Reason: Allergy Symptoms) gabapentin [Neurontin] 400 mg capsule 400 mg PO QID oxcarbazepine [Trileptal] 300 mg tablet 300 mg PO TID prochlorperazine maleate [Compazine] 10 mg tablet 10 mg PO Q6 PRN (Reason: Nausea) baclofen 10 mg tablet 10 mg PO BID omeprazole 20 mg capsule,delayed release(DR/EC) 20 mg PO QAM albuterol sulfate [Ventolin HFA] 90 mcg/actuation Hfa Aerosol Inhaler 2 puff INHALATION Q4 PRN (Reason: Shortness Of Breath Or Wheezing) fluticasone propionate [Flonase Allergy Relief] 50 mcg/actuation spray,suspension 2 spray intranasal HS PRN (Reason: Nasal Congestion) cholecalciferol (vitamin D3) [Vitamin D3] 1,000 unit Capsule 1,000 unit PO DAILY aripiprazole [Abilify] 5 mg tablet 5 mg PO DAILY duloxetine [Cymbalta] 30 mg capsule,delayed release(DR/EC) 30 mg PO QAM Rx Instructions: Take with 60mg to make 90mg fluticasone propion-salmeterol [Wixela Inhub] 500-50 mcg/dose blister with device 1 ea INHALATION BID hydroxyzine pamoate 50 mg Capsule 50 mg PO TID Citrucel (sucrose) Powder 1 tbsp PO QAM PRN (Reason: Constipation) Probiotic Blend 2 billion cell-50 mg Capsule 1 cap PO QAM meloxicam 7.5 mg tablet 7.5 mg PO QAM levothyroxine 100 mcg tablet 100 mcg PO DAILYBB metoprolol succinate 25 mg tablet extended release 24 hr 25 mg PO DAILY duloxetine 60 mg capsule,delayed release(DR/EC) 60 mg PO QAM Rx Instructions: Take with 60mg to make 90mg Discharge Orders: Discharge Order (Routine); Ordered 02/21/22 Ordered By: Zina Sol/Other Patient Handouts: Preventing Deep Vein Thrombosis Admission Data Admit Date/Time: 02/18/22 19:15 Attending Provider: Zina Anne Admit Provider: Abdi Pressley Primary Care Provider: Wanda Mars Other Providers: Abdi Pressley ; Dali Marcus ; Adam Patel ; Rebecca Pedersen ; Nimo Ellison ; Vianey Romero ; Raissa Mcguire ; Raf Perez ; Rodger Trammell ; Millie Faustin ; Kaiser Fournier ; Humberto Alcocer ; Mónica Macias ; Hernesto Mendez ; Charly Griffin ; Jg Arndt ; Josselyn Salomon ; Danuta Godwin ; Kina Burns ; Pauline Mendez ; Harley Daniel ; Mio Ibanez ; Corey Munson ; Jermaine Bennett ; Constanza Riley ; Shell Meyers Jr ; Khloe Brown Other Interventions: Discharge Summary Assessment (RN) Last Done: 02/21/22 15:32
== END 2022-02-21 16:37 | disposition home or self-care (01) | DRG 603 ==
LOC: ED 13:16 → 3W 19:15 → SUATTDRO 19:15 → 3W 21:14

== ENCOUNTER 2022-07-31 08:35 | Observation (INO) ==
[2022-07-31] MEDS ORDERED: ASPIRIN 81 MG CHEW PO STA (08:53)
[2022-07-31] MEDS ORDERED: NITROGLYCERIN SL 0.4 MG/TAB TAB SL STA (08:53)
--- NOTE | 2022-07-31 08:57 | Emergency Department Note ---
Impression & Plan Left-sided chest pain ED Provider Note Name: CORRY GUADARRAMA Age: 57 Sex: F Arrives Via: Walk-In Informant: Patient ED Provider: Jose Alberto Lazaro MD Chief Complaint: Chest pain Impression: As per impressions above Medical Decision Making: Pleasant 57-year-old female with history of asthma, bipolar, hypertension, multiple family members with cardiac disease the patient has no history of DVT, PE, CAD. Patient arrives for evaluation of left-sided chest discomfort with ra diation down left arm. On and off for the last 2-1/2 days significantly worse this morning. Given aspirin and nitro with improvement. Repeat examination patient's is improvement in pain and said pain was continuing some. She has normal troponin and her EKG is unremarkable. I think it is unlikely ACS but given her heart score I think that hospitalization is reasonable. Hospitalist was consulted for further management. I do not feel that this is consistent with dissection or PE and that getting a CTA of the chest indicated. I feel her tachycardia is more anxiety related than PE related. Bedside hospitalist will evaluate further. Prior Medical Record and Triage/Nursing Notes reviewed by Me External chart reviewed by me Differentials:ACS, dissection, arrhythmia, PE, pneumonia amongst many other pathologies considered Vital Signs: reviewed and remarkable for mild tachy on arrival improved Interventions: Aspirin 324 mg p.o., sublingual nitroglycerin Labs:Reviewed and remarkable for normal CBC, BMP, troponin Imagin view chest x-ray interpreted by me no infiltrate, effusion, pneumothorax EKG:Per my interpretation. Indication chest pain. Sinus tachycardia at 110 bpm QTc 460. There is no ectopy nor ischemia. When compared to an EKG of October 27, 2021 its unchanged. Cardiac/Tele Monitoring: Cardiac Monitoring: An Order was placed for continuous cardiac monitoring. The monitor shows a rate of 110 with a sinus tach rhythm. Consults:Dr Sindy Gaming Hospitalist Plan: Disposition:Hospitalization. Condition: Good History of Present Illness:57-year-old female arrives for evaluation of chest pain. Patient notes gradually worsening left-sided chest pressure over the last 2 to 3 days. This morning pain started radiating down her left arm. She feels like her arm might be a little weak side but she has been having trouble holding or dropping anything. Not associated with the shortness of breath. Nothing really seems to make it better or worse. She does notice it more when she is laying in bed. No fevers, chills, syncope, palpitations, abdominal pain, back pain, leg pain, calf pain or other concerning signs or symptoms. She is on recent falls, trauma, injuries. She is not had any pain like this before. She does have a history of GERD but states this is not similar to that. She has multiple family members with MIs including her father and her brother. Patient notes she has been quite stressed last few weeks and had attributed chest pain to just anxiety stress. No medications prior to arrival. No previous cardiac work-up. Past History:GERD hypertension, dyslipidemia, anxiety/depression, COPD Home Medications:See Below Allergies:See Below Vitals:Blood Pressure: 156/91, Pulse 118, RR 20, T 36.7C, O2 96% on RA Physical Exam: GENERAL: Patient is anxious appearing and in minimal distress. EYES: No scleral icterus, unremarkable pupils. ENT: Mucous membranes moist, no nasal congestion. NECK: No masses appreciated, nomeningismus, trachea is midline. RESPIRATORY: No dyspnea. Clear to auscultation and equal bilaterally. No wheeze, no rhonchi. CARDIOVASCULAR: Tachy.No murmurs, rubs, gallops appreciated. GASTROINTESTINAL: Abdomen soft, non-tender, no peritonitis.Bowel sounds positive.No masses appreciated. EXTREMITIES: Normal motion all extremities, no cyanosis, no edema. NEUROLOGIC: Alert and oriented, no focal neurologic deficits appreciated SKIN: No rash, no jaundice, no diaphoresis. PSYCH: Appropriate GCS: 15 ED Course: Times/Reassessments: Stable no distress stating her chest pain has improved Jose Alberto Lazaro MD Past Med/Surg History Medical History Asthma Bipolar 1 disorder Chiari malformation Constipation Fatty liver Fibromyalgia Fusion of spine c2-5--stiff neck, however pt states able to move backward if needed for intubation Hiatal hernia History of anesthesia reaction during cholecysectomy in 1995 @ [facility] was told she had an asthma attack during the surgery pt unable to give further information. However pt has had multiple surgeries since without any further anesthesia issues. History of COVID-19 diagnosed 05/13/2020 @ [facility]--shortness of breath, pain in lungs, runny nose, loss of smell, malaise, body aches History of kidney stones History of MTHFR mutation Hypothyroidism Intracranial hypertension hx 2004 Left flank pain Migraine d/t chiari malformation Osteoarthritis PVC (premature ventricular contraction) Scoliosis mild Sleep apnea bipap (recalled, has not used since) Tachycardia follows with PCP, placed on Toprol. hx holter monitor with PCP. Temporomandibular joint disorder no bite block Unspecified asthma (07/24/12) inhaler daily/prn Surgical History History of bilateral tubal ligation History of brain shunt (~2003) for intracranial hypertension @ [facility] in 2003 History of brain surgery (~2002) decompression for chiari malformation 2002 @ [facility] History of carpal tunnel release of both wrists History of cholecystectomy History of colonoscopy History of dilatation and curettage x2 History of endometrial ablation History of esophagogastroduodenoscopy (EGD) History of tonsillectomy History of tooth extraction upper teeth Status post excision of lipoma Status post trigger finger release right hand middle finger Family History Brother Heart disease Family history of diabetes mellitus Father Heart disease Family history of diabetes mellitus Family hx colonic polyps Mother Family history of diabetes mellitus Sister Family history of diabetes mellitus Sister Family history of diabetes mellitus Uncle Family hx of colon cancer Other No family history of adverse response to anesthesia No pertinent family history in first degree relatives Social History Smoking Status: Former smoker Tobacco Type: Cigarettes Second Hand Exposure: No; Hx Alcohol Use: Yes (teenager) Alcohol type: beer Hx Substance Use: No Preferred Language: Lithuanian Communication Ability: Effective Head Coach Required: No Beliefs That Will Affect Care: None Current Living Situation: Significant Other Feels Safe at Home: Yes Safety Concerns: Feels Safe At This Time Assistive Devices: Denture - Upper Allergies Allergies Allergy/AdvReac Type Severity Reaction Status Date / Time clomipramine Allergy Severe TARDIVE Verified 07/31/22 10:20 DYSKINESIA haloperidol Allergy Severe TARDIVE Verified 07/31/22 10:20 DYSKENESIA NSAIDS (Non-Steroidal Allergy Severe asthma Verified 07/31/22 10:20 Anti-Inflamma exacerbation olanzapine Allergy Severe TARDIVE Verified 07/31/22 10:20 DYSKENSIA pseudoephedrine Allergy Severe ASTHMA Verified 07/31/22 10:20 ISSUES risperidone Allergy Severe tardive Verified 07/31/22 10:20 dyskinesia Gadolinium-Containing Allergy Intermediate RASH Verified 07/31/22 10:20 Contrast Medi Iodinated Contrast Media Allergy Intermediate Rash Unverified 07/31/22 10:20 lithium Allergy Intermediate DIABETES Verified 07/31/22 10:20 INSIPIDOUS latex Allergy Mild skin rash, Verified 07/31/22 10:20 itchy pneumococcal vaccine Allergy Mild RASH Verified 07/31/22 10:20 iodine AdvReac Intermediate Rash on Unverified 07/31/22 10:20 Truck Home Meds Home Medications Medication Instructions Recorded Confirmed albuterol sulfate 90 mcg/actuation 2 puff inhalation Q4 PRN Shortness 01/12/19 07/31/22 aerosol inhaler (Ventolin HFA) Of Breath Or Wheezing aripiprazole 5 mg tablet (Abilify) 5 mg PO DAILY 01/12/19 07/31/22 baclofen 10 mg tablet 10 mg PO BID 01/12/19 07/31/22 cetirizine 10 mg tablet (Zyrtec) 10 mg PO QAM PRN Allergy Symptoms 01/12/19 07/31/22 cholecalciferol (vitamin D3) 25 1,000 unit PO DAILY 01/12/19 07/31/22 mcg (1,000 unit) capsule (Vitamin D3) duloxetine 30 mg capsule,delayed 30 mg PO QAM 01/12/19 07/31/22 release (Cymbalta) fluticasone propionate 50 2 spray intranasal HS PRN Nasal 01/12/19 07/31/22 mcg/actuation nasal Congestion spray,suspension (Flonase Allergy Relief) gabapentin 400 mg capsule 400 mg PO QID 01/12/19 07/31/22 (Neurontin) omeprazole 20 mg capsule,delayed 20 mg PO QAM 01/12/19 07/31/22 release oxcarbazepine 300 mg tablet 300 mg PO TID 01/12/19 07/31/22 (Trileptal) prochlorperazine maleate 10 mg 10 mg PO Q6 PRN Nausea 01/12/19 07/31/22 tablet (Compazine) fluticasone 500 mcg-salmeterol 50 1 ea inhalation BID 11/19/19 07/31/22 mcg/dose blistr powdr for inhalation (Nessxela Inhub) L.acidophil-L.casei-B.bifid-B.longum-FOS 1 cap PO QAM 08/19/20 07/31/22 2 billion cell-50 mg capsule (Probiotic Blend) hydroxyzine pamoate 50 mg capsule 50 mg PO TID 08/19/20 07/31/22 duloxetine 60 mg capsule,delayed 60 mg PO QAM 10/27/21 07/31/22 release levothyroxine 100 mcg tablet 100 mcg PO DAILYBB 10/27/21 07/31/22 metoprolol succinate 25 mg 25 mg PO DAILY 10/27/21 07/31/22 tablet,extended release 24 hr lisinopril 10 mg tablet 10 mg PO DAILY 07/31/22 07/31/22 Results & Data (ED) Vital Signs Vital Signs - 24 hr 07/31/22 08:39 07/31/22 08:54 07/31/22 08:53 Temperature 36.7 C Temperature Source Temporal Artery Scan Pulse Rate 118 H 96 H 96 H Pulse Rate from SpO2 Sensor 97 H Respiratory Rate 20 18 Respiratory Effort / Characteristics Non-Labored Respiratory Depth Normal Blood Pressure 156/91 H Blood Pressure Mean 112 Pulse Oximetry 96 95 Oxygen Delivery Method Room Air Sepsis Recent Fever Within 48 Hours No Sepsis New/Unexplained Change in Mental Status N/A Sepsis Action Taken by Nursing No Action Required 07/31/22 09:00 07/31/22 09:30 07/31/22 09:44 Temperature Temperature Source Pulse Rate 101 H 88 Pulse Rate from SpO2 Sensor 103 H 88 Respiratory Rate 25 H 13 Respiratory Effort / Characteristics Respiratory Depth Blood Pressure 152/80 H Blood Pressure Mean 104 Pulse Oximetry 95 95 Oxygen Delivery Method Sepsis Recent Fever Within 48 Hours Sepsis New/Unexplained Change in Mental Status Sepsis Action Taken by Nursing 07/31/22 09:44 07/31/22 09:45 07/31/22 09:45 Temperature Temperature Source Pulse Rate 89 91 H Pulse Rate from SpO2 Sensor 90 91 H Respiratory Rate 30 H 13 Respiratory Effort / Characteristics Respiratory Depth Blood Pressure 142/81 H Blood Pressure Mean 101 Pulse Oximetry 96 96 Oxygen Delivery Method Sepsis Recent Fever Within 48 Hours Sepsis New/Unexplained Change in Mental Status Sepsis Action Taken by Nursing 07/31/22 10:00 07/31/22 10:00 07/31/22 10:15 Temperature Temperature Source Pulse Rate 85 83 Pulse Rate from SpO2 Sensor 87 85 Respiratory Rate 17 11 L Respiratory Effort / Characteristics Respiratory Depth Blood Pressure 141/99 H Blood Pressure Mean 113 Pulse Oximetry 94 94 Oxygen Delivery Method Sepsis Recent Fever Within 48 Hours Sepsis New/Unexplained Change in Mental Status Sepsis Action Taken by Nursing 07/31/22 10:15 07/31/22 10:30 07/31/22 10:30 Temperature Temperature Source Pulse Rate 83 Pulse Rate from SpO2 Sensor 84 Respiratory Rate 22 Respiratory Effort / Characteristics Respiratory Depth Blood Pressure 139/91 162/99 H Blood Pressure Mean 107 120 Pulse Oximetry 96 Oxygen Delivery Method Sepsis Recent Fever Within 48 Hours Sepsis New/Unexplained Change in Mental Status Sepsis Action Taken by Nursing 07/31/22 10:45 07/31/22 10:45 07/31/22 11:00 Temperature Temperature Source Pulse Rate 81 85 Pulse Rate from SpO2 Sensor 82 84 Respiratory Rate 16 18 Respiratory Effort / Characteristics Respiratory Depth Blood Pressure 155/108 H Blood Pressure Mean 123 Pulse Oximetry 96 97 Oxygen Delivery Method Sepsis Recent Fever Within 48 Hours Sepsis New/Unexplained Change in Mental Status Sepsis Action Taken by Nursing 07/31/22 11:01 07/31/22 11:01 07/31/22 11:16 Temperature Temperature Source Pulse Rate 84 Pulse Rate from SpO2 Sensor 85 Respiratory Rate 24 Respiratory Effort / Characteristics Respiratory Depth Blood Pressure 174/81 H 155/98 H Blood Pressure Mean 112 117 Pulse Oximetry 97 Oxygen Delivery Method Sepsis Recent Fever Within 48 Hours Sepsis New/Unexplained Change in Mental Status Sepsis Action Taken by Nursing 07/31/22 11:16 Temperature Temperature Source Pulse Rate 81 Pulse Rate from SpO2 Sensor 82 Respiratory Rate 15 Respiratory Effort / Characteristics Respiratory Depth Blood Pressure Blood Pressure Mean Pulse Oximetry 95 Oxygen Delivery Method Sepsis Recent Fever Within 48 Hours Sepsis New/Unexplained Change in Mental Status Sepsis Action Taken by Nursing Laboratory Data 07/31/22 08:50 07/31/22 08:50 Lab Results 07/31/22 07/31/22 07/31/22 Range/Units 08:50 08:50 08:50 WBC 6.69 (4.8-10.8) K/ul RBC 5.14 (4.20-5.40) M/uL Hgb 15.1 (12.0-16.0) g/dl Hct 41.1 (37.0-47.0) % MCV 80.0 (80.0-100.0) fL MCH 29.4 (25.0-34.0) pg MCHC 36.7 H (32.0-36.0) g/dL RDW Std Deviation 34.3 L (36.4-46.3) fL RDW Coeff of Chandler 11.9 (11.5-14.5) % Plt Count 370 (130-400) K/uL MPV 8.2 L (9.4-12.4) fL Immature Gran % (Auto) 0.3 % Neut % (Auto) 59.3 % Lymph % (Auto) 28.4 % Bureau % (Auto) 8.5 % Eos % (Auto) 2.5 % Baso % (Auto) 1.0 % Neut # (Auto) 3.96 (1.40-6.50) K/uL Lymph # (Auto) 1.90 (1.2-3.4) K/uL Bureau # (Auto) 0.57 (0.11-0.59) K/uL Eos # (Auto) 0.17 (0-0.50) K/uL Baso # (Auto) 0.07 (0-0.2) K/uL Immature Gran # (Auto) 0.02 (0.01-0.20) K/uL PT 11.0 (9.0-12.0) Seconds INR 1.0 (0.9-1.1) APTT 28.8 (21.0-31.0) Seconds PTT Ratio 1.0 Sodium 131 L (136-145) mmol/L Potassium 3.9 (3.5-5.1) mmol/L Chloride 98 (98-107) mmol/L Carbon Dioxide 26 (21-32) mmol/L Anion Gap 7 (3-11) BUN 12 (6-23) mg/dl Creatinine 0.78 (0.6-1.2) mg/dl Est Cr Clr Drug Dosing 93.3 ml/min Est GFR ( Amer) 97.8 ml/min Est GFR (Non-Af Amer) 84.4 ml/min BUN/Creatinine Ratio 15.4 (10-20) Glucose 160 H (70-99(Fasting)) mg/dl Calcium 10.0 (8.5-10.1) mg/dl Magnesium 2.0 (1.7-2.4) mg/dl Total Bilirubin 0.7 (0.2-1.0) mg/dl Direct Bilirubin 0.1 (0-0.2) mg/dl AST 18 (13-39) U/L ALT 16 (7-52) U/L Alkaline Phosphatase 84 (34-104) U/L Troponin I High Sens < 2.3 (0-14) pg/ml Total Protein 7.5 (6.0-8.3) gm/dl Albumin 4.8 (3.4-5.0) gm/dl TSH (0.300-4.500) uIu/ml Free T4 (0.61-1.60) ng/dl SARS-CoV-2, RNA, NAAT (NEGATIVE) 07/31/22 07/31/22 07/31/22 Range/Units 08:50 08:59 10:53 WBC (4.8-10.8) K/ul RBC (4.20-5.40) M/uL Hgb (12.0-16.0) g/dl Hct (37.0-47.0) % MCV (80.0-100.0) fL MCH (25.0-34.0) pg MCHC (32.0-36.0) g/dL RDW Std Deviation (36.4-46.3) fL RDW Coeff of Chandler (11.5-14.5) % Plt Count (130-400) K/uL MPV (9.4-12.4) fL Immature Gran % (Auto) % Neut % (Auto) % Lymph % (Auto) % Bureau % (Auto) % Eos % (Auto) % Baso % (Auto) % Neut # (Auto) (1.40-6.50) K/uL Lymph # (Auto) (1.2-3.4) K/uL Bureau # (Auto) (0.11-0.59) K/uL Eos # (Auto) (0-0.50) K/uL Baso # (Auto) (0-0.2) K/uL Immature Gran # (Auto) (0.01-0.20) K/uL PT (9.0-12.0) Seconds INR (0.9-1.1) APTT (21.0-31.0) Seconds PTT Ratio Sodium (136-145) mmol/L Potassium (3.5-5.1) mmol/L Chloride (98-107) mmol/L Carbon Dioxide (21-32) mmol/L Anion Gap (3-11) BUN (6-23) mg/dl Creatinine (0.6-1.2) mg/dl Est Cr Clr Drug Dosing ml/min Est GFR ( Amer) ml/min Est GFR (Non-Af Amer) ml/min BUN/Creatinine Ratio (10-20) Glucose (70-99(Fasting)) mg/dl Calcium (8.5-10.1) mg/dl Magnesium (1.7-2.4) mg/dl Total Bilirubin (0.2-1.0) mg/dl Direct Bilirubin (0-0.2) mg/dl AST (13-39) U/L ALT (7-52) U/L Alkaline Phosphatase (34-104) U/L Troponin I High Sens < 2.3 (0-14) pg/ml Total Protein (6.0-8.3) gm/dl Albumin (3.4-5.0) gm/dl TSH 0.196 L (0.300-4.500) uIu/ml Free T4 0.91 (0.61-1.60) ng/dl SARS-CoV-2, RNA, NAAT NEGATIVE (NEGATIVE) Administered Medications Acetaminophen (Acetaminophen 325 Mg Tab) 650 mg PO Q4H PRN PRN Reason: Pain or Fever Stop: 08/30/22 12:20 Last Admin: 07/31/22 12:48 Dose: 650 mg Documented By: MG Gabapentin (Gabapentin 400 Mg Cap) 400 mg PO QID [facility] Stop: 08/30/22 12:59 Last Admin: 07/31/22 13:17 Dose: 400 mg Documented By: MG Hydroxyzine HCl (Hydroxyzine Hcl 25 Mg Tab) 50 mg PO TID [facility] Stop: 08/30/22 13:59 Last Admin: 07/31/22 13:18 Dose: 50 mg Documented By: MG Oxcarbazepine (Oxcarbazepine 150 Mg Tablet) 300 mg PO TID [facility] Stop: 08/30/22 13:59 Last Admin: 07/31/22 13:17 Dose: 300 mg Documented By: MG Discontinued Medications Aspirin (Aspirin 81 Mg Chew) 324 mg PO NOW STA Stop: 07/31/22 08:54 Last Admin: 07/31/22 08:57 Dose: 324 mg Documented By: HS Lisinopril (Lisinopril 5 Mg Tab) 10 mg PO NOW STA Stop: 07/31/22 11:47 Last Admin: 07/31/22 11:51 Dose: 10 mg Documented By: HS Nitroglycerin (Nitroglycerin Sl 0.4 Mg/Tab Tab) 0.4 mg SL NOW STA Stop: 07/31/22 08:54 Last Admin: 07/31/22 08:57 Dose: 0.4 mg Documented By: HS Imaging Data Radiologist's Impression: Chest X-Ray 07/31/22 08:53 XR chest 1V portable CLINICAL HISTORY: Chest Pain TECHNIQUE: Single frontal radiograph of the chest was obtained. Comparison: Comparison is made to chest radiograph 10/27/2021 FINDINGS: Lines and tubes are stable. The cardiomediastinal silhouette is normal. The lungs are clear. No evidence of pleural effusion or pneumothorax. IMPRESSION: No acute chest disease. ACT 112: Negative or not required by law. Electronically signed by: Didier Devlin M.D. 07/31/2022 9:17 AM Discharge Plan Visit Data Chief Complaint: Chest Pain Stated Complaint: CHEST PAIN, ARM PAIN, HIGH BP ED Provider: Jose Alberto Lazaro Discharge Problem: Left-sided chest pain Patient Disposition: Admitted As Inpatient Discharge Instructions Interventions: ED Discharge Assessment Last Done: 07/31/22 11:58
[2022-07-31 09:12] LABS: Basophils # (auto) 0.07 K/uL (0-0.2); Eosinophils # (auto) 0.17 K/uL (0-0.50); Eosinophils % (auto) 2.5 %; Hematocrit (blood only) 41.1 % (37.0-47.0); Hemoglobin 15.1 g/dl (12.0-16.0); Immature Granulocytes # (auto) 0.02 K/uL (0.01-0.20); Immature Granulocytes % (auto) 0.3 %; Lymphocytes % (auto) 28.4 %; Mean Corpuscular Hemoglobin 29.4 pg (25.0-34.0); Mean Corpuscular Hgb Conc 36.7 g/dL (32.0-36.0); Mean Platelet Volume 8.2 fL (9.4-12.4); Monocytes # (auto) 0.57 K/uL (0.11-0.59); Monocytes % (auto) 8.5 %; Neutrophils # (auto) 3.96 K/uL (1.40-6.50); Neutrophils % (auto) 59.3 %; Platelet Count 370 K/uL (130-400); RDW Coefficient of Variation 11.9 % (11.5-14.5); RDW Standard Deviation 34.3 fL (36.4-46.3); Red Blood Count 5.14 M/uL (4.20-5.40); White Blood Count 6.69 K/ul (4.8-10.8)
--- NOTE | 2022-07-31 09:18 | XRay Report ---
XR chest 1V portable CLINICAL HISTORY: Chest Pain TECHNIQUE: Single frontal radiograph of the chest was obtained. Comparison: Comparison is made to chest radiograph 10/27/2021 FINDINGS: Lines and tubes are stable. The cardiomediastinal silhouette is normal. The lungs are clear. No evide nce of pleural effusion or pneumothorax. IMPRESSION: No acute chest disease. ACT 112: Negative or not required by law. Electronically signed by: Didier Devlin M.D. 07/31/2022 9:17 AM
[2022-07-31 09:35] LABS: Alanine Aminotransferase 16 U/L (7-52); Albumin Level 4.8 gm/dl (3.4-5.0); Alkaline Phosphatase 84 U/L (34-104); Anion Gap 7 (3-11); Aspartate Aminotransferase 18 U/L (13-39); BUN Creatinine Ratio 15.4 (10-20); Bilirubin Direct 0.1 mg/dl (0-0.2); Bilirubin,Total 0.7 mg/dl (0.2-1.0); Blood Urea Nitrogen 12 mg/dl (6-23); Carbon Dioxide 26 mmol/L (21-32); Chloride 98 mmol/L (98-107); Creatinine Clr Calc Pharmacy 93.3 ml/min; Est GFR (African American) 97.8 ml/min; Est GFR (Non-African American) 84.4 ml/min; Glucose 160 mg/dl (70-99(Fasting)); Potassium 3.9 mmol/L (3.5-5.1); Sodium 131 mmol/L (136-145); Total Protein 7.5 gm/dl (6.0-8.3)
[2022-07-31 09:41] LABS: Troponin I High Sensitivity < 2.3 pg/ml (0-14)
[2022-07-31 09:58] LABS: Partial Thromboplastin Time 28.8 Seconds (21.0-31.0)
--- NOTE | 2022-07-31 10:22 | Electrocardiogram Report ---
Test Reason : Blood Pressure : / mmHG Vent. Rate : 110 BPM Atrial Rate : 110 BPM P-R Int : 146 ms QRS Dur : 094 ms QT Int : 340 ms P-R-T Axes : 063 042 053 degrees QTc Int : 460 ms Sinus tachycardia Possible Left atrial enlargement Nonspecific ST abnormality Abnormal ECG When compared with ECG of 27-OCT-2021 11:21, No significant change was found Confirmed by Jesus Bell ([id number]) on 07/31/2022 10:21:54 AM Referred By: ED Confirmed By:Jesus Bell
[2022-07-31 11:23] LABS: Thyroid Stimulating Hormone 0.196 uIu/ml (0.300-4.500)
--- NOTE | 2022-07-31 11:29 | History & Physical Report ---
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 Atypical chest pain Admit under observation to PCU Patient with substernal chest pain radiating to left shoulder off and on the past 3 to 4 days Initial EKG and troponin not concerning for ischemia Patient is under a lot of stress with recent deaths in the family; however she does have significant family history of father and brother with MIs in early 50s I feel she does warrant ischemic cardiac work-up Last stress test was 10 years ago will trend trops, repeat ecg NPO after midnight dobutamine stress test in a.m. Will control BP, increase lisinopril to 20mg daily, give additional 10mg x 1 now HTN bp elevated in ED, has been elevated last several days PCP recently increased lisinopril from 5mg to 10mg daily will increase to 20mg daily continue metoprolol Obstructive sleep apnea continue bipap therapy at HS Hypothyroidism TSH low will reduce home levothyroxine dose to 88.5mcg recommend repeat in 4-6weeks with PCP Bipolar disorder continue home meds Hyperglycemia bsg 160s in ED, ate breakfast prior to arrival a1c in a.m DVT ppx: SQ Lovenox Dispo: Tele FULL CODE PCP: Wanda Mars MD A total of 80 minutes was spent with greater than 50% of that time personally viewing all current laboratory work and diagnostic imaging studies obtained in the ED. Additionally, I was able to view the patients past medication reconciliation and history with direct visualization in the patients chart. Included in the time above, a portion of that time was spent assessing the patient while discussing and collaborating with specialists, if necessary, and making medical decision making on treatment plan. All of the above was collaborated with Dr. Callahan. Please see addendum for further details. History of Present Illness Chief Complaint: Chest pain off and on x 3-4 days. Primary Care Provider: Wanda Mars MD This is a 57-year-old female who has significant past medical history of Arnold- Chiari malformation status post MAND[employer]IN [employer]ACHER shunt, fibromyalgia, hypertension, hypothyroidism, CECI on BiPAP therapy, GERD, vitamin D deficiency, drug-induced constipation, asthma, bipolar disorder who presents to ED secondary to chest pain off and on for the past 3 to 4 days. Patient elicits a substernal chest pressure and heaviness that has started over the past 3 to 4 days. She has never experienced this in the past. Pressure is located substernally and occasionally radiates to her left arm and shoulder. She denies any numbness or tingling to left arm and shoulder. She further denies any radiation to left jaw. When pain initially came on she was lying in bed. She is typically not very active and therefore most occasions chest pain presents itself is while she is at rest. It tends to go away within minutes up to 15 minutes on its own without any intervention. Over the last 3 days she has noticed occasional naus ea and lightheadedness with the pain. She denies any syncope, presyncope, shortness of breath, palpitations or diaphoresis. She has not tried anything to make symptoms better. She does elicit that she has been under a lot of stress. She recently had a family members who are . She initially thought likely this is secondary to anxiety but due to significant family history and elevated blood pressure this morning she opted to present to ED. Blood pressure this morning was 170s over 100s. Recently she has been following her PCP for blood pressure management. She recently was started on lisinopril and increased from 5 mg to 10 mg 1 week ago. She also has significant history of central sleep apnea on BiPAP therapy. She admits to being compliant with this. She last ate this morning at approximately 8:00 on banana and coconut milk. She did take her morning meds. She denies any recent illness, fever, chills, sweats, lightheadedness, dizziness, cough, hemoptysis, URI symptoms, lower extremity edema, PND orthopnea, vomiting, abdominal pain, change in bowel or urinary habits. She has an overall decreased appetite due to recent passing of close family. She does have prior history of costochondritis and states this feels different. In ED patient remained hemodynamically stable although she was hypertensive, blood pressure during my evaluation was 155/108. Her initial EKG was without ST or T wave change. Her initial troponin was negative. Her repeat troponin in 2 hours was also negative. TSH is 0.196. She does have significant family history of coronary artery disease. Both her father and brother sustained initial MIs in their early 50s. She denies any tobacco or alcohol use. Allergies Allergy/AdvReac Type Severity Reaction Status Date / Time clomipramine Allergy Severe TARDIVE Verified 07/31/22 10:20 DYSKINESIA haloperidol Allergy Severe TARDIVE Verified 07/31/22 10:20 DYSKENESIA NSAIDS (Non-Steroidal Allergy Severe asthma Verified 07/31/22 10:20 Anti-Inflamma exacerbation olanzapine Allergy Severe TARDIVE Verified 07/31/22 10:20 DYSKENSIA pseudoephedrine Allergy Severe ASTHMA Verified 07/31/22 10:20 ISSUES risperidone Allergy Severe tardive Verified 07/31/22 10:20 dyskinesia Gadolinium-Containing Allergy Intermediate RASH Verified 07/31/22 10:20 Contrast Medi Iodinated Contrast Media Allergy Intermediate Rash Unverified 07/31/22 10:20 lithium Allergy Intermediate DIABETES Verified 07/31/22 10:20 INSIPIDOUS latex Allergy Mild skin rash, Verified 07/31/22 10:20 itchy pneumococcal vaccine Allergy Mild RASH Verified 07/31/22 10:20 iodine AdvReac Intermediate Rash on Unverified 07/31/22 10:20 Truck Home Medications Medication Instructions Recorded Confirmed Type albuterol sulfate 90 mcg/actuation 2 puff inhalation Q4 PRN Shortness 01/12/19 07/31/22 History aerosol inhaler (Ventolin HFA) Of Breath Or Wheezing aripiprazole 5 mg tablet (Abilify) 5 mg PO DAILY 01/12/19 07/31/22 History baclofen 10 mg tablet 10 mg PO BID 01/12/19 07/31/22 History cetirizine 10 mg tablet (Zyrtec) 10 mg PO QAM PRN Allergy Symptoms 01/12/19 07/31/22 History cholecalciferol (vitamin D3) 25 1,000 unit PO DAILY 01/12/19 07/31/22 History mcg (1,000 unit) capsule (Vitamin D3) duloxetine 30 mg capsule,delayed 30 mg PO QAM 01/12/19 07/31/22 History release (Cymbalta) fluticasone propionate 50 2 spray intranasal HS PRN Nasal 01/12/19 07/31/22 History mcg/actuation nasal Congestion spray,suspension (Flonase Allergy Relief) gabapentin 400 mg capsule 400 mg PO QID 01/12/19 07/31/22 History (Neurontin) omeprazole 20 mg capsule,delayed 20 mg PO QAM 01/12/19 07/31/22 History release oxcarbazepine 300 mg tablet 300 mg PO TID 01/12/19 07/31/22 History (Trileptal) prochlorperazine maleate 10 mg 10 mg PO Q6 PRN Nausea 01/12/19 07/31/22 History tablet (Compazine) fluticasone 500 mcg-salmeterol 50 1 ea inhalation BID 11/19/19 07/31/22 History mcg/dose blistr powdr for inhalation (Wixela Inhub) L.acidophil-L.casei-B.bifid-B.longum-FOS 1 cap PO QAM 08/19/20 07/31/22 History 2 billion cell-50 mg capsule (Probiotic Blend) hydroxyzine pamoate 50 mg capsule 50 mg PO TID 08/19/20 07/31/22 History duloxetine 60 mg capsule,delayed 60 mg PO QAM 10/27/21 07/31/22 History release levothyroxine 100 mcg tablet 100 mcg PO DAILYBB 10/27/21 07/31/22 History metoprolol succinate 25 mg 25 mg PO DAILY 10/27/21 07/31/22 History tablet,extended release 24 hr lisinopril 10 mg tablet 10 mg PO DAILY 07/31/22 07/31/22 History Past Med/Surg History Medical History Asthma Bipolar 1 disorder Chiari malformation Constipation Fatty liver Fibromyalgia Fusion of spine c2-5--stiff neck, however pt states able to move backward if needed for intubation Hiatal hernia History of anesthesia reaction during cholecysectomy [address] [facility] was told she had an asthma attack during the surgery pt unable to give further information. However pt has had multiple surgeries since without any further anesthesia issues. History of COVID-19 diagnosed 05/13/2020 @ [facility]--shortness of breath, pain in lungs, runny nose, loss of smell, malaise, body aches History of kidney stones History of MTHFR mutation Hypothyroidism Intracranial hypertension hx 2003 Left flank pain Migraine d/t chiari malformation Osteoarthritis PVC (premature ventricular contraction) Scoliosis mild Sleep apnea bipap (recalled, has not used since) Tachycardia follows with PCP, placed on Toprol. hx holter monitor with PCP. Temporomandibular joint disorder no bite block Unspecified asthma (07/24/12) inhaler daily/prn Surgical History History of bilateral tubal ligation History of brain shunt (~2003) for intracranial hypertension @ [facility] in 2003 History of brain surgery (~2002) decompression for chiari malformation 2002 @ [facility] History of carpal tunnel release of both wrists History of cholecystectomy History of colonoscopy History of dilatation and curettage x2 History of endometrial ablation History of esophagogastroduodenoscopy (EGD) History of tonsillectomy History of tooth extraction upper teeth Status post excision of lipoma Status post trigger finger release right hand middle finger Family History Brother Heart disease Family history of diabetes mellitus Father Heart disease Family history of diabetes mellitus Family hx colonic polyps Mother Family history of diabetes mellitus Sister Family history of diabetes mellitus Sister Family history of diabetes mellitus Uncle Family hx of colon cancer Other No family history of adverse response to anesthesia No pertinent family history in first degree relatives Social History Smoking Status: Former smoker Tobacco Type: Cigarettes Second Hand Exposure: No; Hx Alcohol Use: Yes (teenager) Alcohol type: beer Hx Substance Use: No Preferred Language: Gibraltarian Communication Ability: Effective Tray Delivery Aide Required: No Beliefs That Will Affect Care: None Current Living Situation: Significant Other Feels Safe at Home: Yes Safety Concerns: Feels Safe At This Time Assistive Devices: Denture - Upper Review of Systems Review of Systems: All systems reviewed & are unremarkable except as noted in HPI & below Physical Exam Physical Exam: Constitutional: WD/WN, vitals as above, NAD, sitting up in bed, pleasant, conversing easily Head: Normocephalic, Atraumatic Eyes: PERRL, conjunctivae normal, anicteric sclerae ENMT: external ear and nose normal, oropharynx normal Neck: trachea midline, no thyromegaly normal visual inspection Respiratory: normal respiratory effort, lungs clear to auscultation, no wheeze, rales, rhonchi. Normal insp/exp effort, no accessory muscle use Cardiovascular: RRR, no murmur, no edema Vessels: no JVD or carotid bruit Chest: normal inspection of chest, no pain to palpation Abdomen: normal bowel sounds, soft, nontender, no hepatosplenomegaly Musculoskeletal: no cyanosis or clubbing, extremities motor strength 5/5 Skin: no rashes, warm and dry normal turgor Neurologic: PERRL, EOMI, accommodation nl, no face palsy, no dysarthria CN's II-XI intact bilaterally and moves all extremities Psychiatric: A+Ox3, euthymic affect Lymphatic: no cervical or axillary lymphadenopathy : deferred Results & Data Results & Data ([facility]) Vital Signs (Past 12 Hours) Vital Signs Temp Pulse Resp BP Pulse Ox O2 Del Method 07/31/22 10:45 155/108 H 07/31/22 10:45 81 16 96 07/31/22 10:30 83 22 96 07/31/22 10:30 162/99 H 07/31/22 10:15 139/91 07/31/22 10:15 83 11 L 94 07/31/22 10:00 85 17 94 07/31/22 10:00 141/99 H 07/31/22 09:45 142/81 H 07/31/22 09:45 91 H 13 96 07/31/22 09:44 89 30 H 96 07/31/22 09:44 152/80 H 07/31/22 09:30 88 13 95 07/31/22 09:00 101 H 25 H 95 07/31/22 08:53 96 H 18 95 07/31/22 08:54 96 H 07/31/22 08:39 36.7 C 118 H 20 156/91 H 96 Room Air Diagnostic Findings Chest X-Ray 07/31/22 08:53 XR chest 1V portable CLINICAL HISTORY: Chest Pain TECHNIQUE: Single frontal radiograph of the chest was obtained. Comparison: Comparison is made to chest radiograph 10/27/2021 FINDINGS: Lines and tubes are stable. The cardiomediastinal silhouette is normal. The lungs are clear. No evidence of pleural effusion or pneumothorax. IMPRESSION: No acute chest disease. ACT 112: Negative or not required by law. Electronically signed by: Didier Devlin M.D. 07/31/2022 9:17 AM Medications Administered Medication List Discontinued Medications Aspirin (Aspirin 81 Mg Chew) 324 mg PO NOW STA Stop: 07/31/22 08:54 Last Admin: 07/31/22 08:57 Dose: 324 mg Documented By: HS Nitroglycerin (Nitroglycerin Sl 0.4 Mg/Tab Tab) 0.4 mg SL NOW STA Stop: 07/31/22 08:54 Last Admin: 07/31/22 08:57 Dose: 0.4 mg Documented By: HS ECG Rate (beats per minute): 110 Rhythm: sinus tachycardia Additional Comments: qtc 460ms, viewed by ms COVID-19 Results Results COVID-19 Adm Lab Results: RBC 5.14 M/uL (4.20-5.40) 07/31/22 WBC 6.69 K/ul (4.8-10.8) 07/31/22 Hgb 15.1 g/dl (12.0-16.0) 07/31/22 Hct 41.1 % (37.0-47.0) 07/31/22 Plt Count 370 K/uL (130-400) 07/31/22 Neutrophils (%) (Auto) 59.3 % 07/31/22 Lymphocytes (%) (Auto) 28.4 % 07/31/22 Monocytes # (Auto) 0.57 K/uL (0.11-0.59) 07/31/22 Eosinophils # (Auto) 0.17 K/uL (0-0.50) 07/31/22 Immature Granulocyte % (Auto) 0.3 % 07/31/22 Neutrophils # (Auto) 3.96 K/uL (1.40-6.50) 07/31/22 Lymphocytes # (Auto) 1.90 K/uL (1.2-3.4) 07/31/22 Monocytes # (Auto) 0.57 K/uL (0.11-0.59) 07/31/22 Eosinophils # (Auto) 0.17 K/uL (0-0.50) 07/31/22 Basophils # (Auto) 0.07 K/uL (0-0.2) 07/31/22 Immature Granulocyte # (Auto) 0.02 K/uL (0.01-0.20) 3 Na 131 mmol/L (136-145) L 07/31/22 K 3.9 mmol/L (3.5-5.1) 07/31/22 Cl 98 mmol/L (98-107) 07/31/22 CO2 26 mmol/L (21-32) 07/31/22 Anion Gap 7 (3-11) 07/31/22 BUN 12 mg/dl (6-23) 07/31/22 Creatinine 0.78 mg/dl (0.6-1.2) 07/31/22 BUN/Creatinine Ratio 15.4 (10-20) 07/31/22 Glucose Level 160 mg/dl (70-99(Fasting)) H 07/31/22 Ca 10.0 mg/dl (8.5-10.1) 07/31/22 Total Bilirubin 0.7 mg/dl (0.2-1.0) 07/31/22 Direct Bilirubin 0.1 mg/dl (0-0.2) 07/31/22 AST/SGOT 18 U/L (13-39) 07/31/22 ALT/SGPT 16 U/L (7-52) 07/31/22 Alkaline Phosphatase 84 U/L (34-104) 07/31/22 Total Protein 7.5 gm/dl (6.0-8.3) 07/31/22 Albumin 4.8 gm/dl (3.4-5.0) 07/31/22 PTT 28.8 Seconds (21.0-31.0) 07/31/22 INR 1.0 (0.9-1.1) 07/31/22 SARS-CoV-2, RNA, NAAT NEGATIVE (NEGATIVE) 07/31/22 Chest X-Ray 07/31/22 Code Status & VTE Plan Code Status FULL CODE VTE Prophylaxis Plan VTE Prophylaxis will be ordered: Yes Supervising Physician Co-Signing Physician Notes Patient was seen and examined independently. Chart reviewed. Case discussed with ANA PAULA. Agree with assessment and plan as above. (1) Chest pain Chest pain type: unspecified Qualified Code(s): R07.9 - Chest pain, unspecified
[2022-07-31] MEDS ORDERED: lisinopril 5 MG TAB PO STA (11:46)
[2022-07-31 11:58] LABS: T4 Free Thyroxine 0.91 ng/dl (0.61-1.60)
[2022-07-31] MEDS ORDERED: ONDANSETRON INJ 2 MG/ML 2 ML VIAL IV PRN (12:21)
[2022-07-31] MEDS ORDERED: MAGNESIUM HYDROXIDE SUSP 30 ML UDC PO PRN (12:21)
[2022-07-31] MEDS ORDERED: FLUTICASONE PROPIONATE NA SPR 16 GM BTL PRN (12:21)
[2022-07-31] MEDS ORDERED: ALBUTEROL HFA 8 GM INHALER INH PRN (12:21)
[2022-07-31] MEDS ORDERED: ALUMINUM/MAGNESIUM SUSP 30 ML UDC PO PRN (12:21)
[2022-07-31] MEDS ORDERED: POLYETHYLENE (MIRALAX) 17 GM PACK PO PRN (12:21)
[2022-07-31] MEDS: ACETAMINOPHEN 325 MG TAB PO PRN (12:48)
[2022-07-31] MEDS: GABAPENTIN 400 MG CAP PO SCH ×3 (13:17→19:57)
[2022-07-31] MEDS: OXcarbazepine 150 MG TABLET PO SCH ×2 (13:17→19:58)
[2022-07-31] MEDS: hydrOXYzine HCl 25 MG TAB PO SCH ×2 (13:18→19:57)
[2022-07-31] MEDS: BACLOFEN 10 MG TAB PO SCH (19:56)
[2022-07-31] MEDS: ENOXAPARIN INJ 40 MG/0.4 ML SYR SQ SCH (19:59)
[2022-08-01] MEDS: ACETAMINOPHEN 325 MG TAB PO PRN (03:17)
[2022-08-01] MEDS: LEVOTHYROXINE SODIUM 88 MCG TABLET PO SCH (05:37)
[2022-08-01 07:23] LABS: Hematocrit (blood only) 39.4 % (37.0-47.0); Hemoglobin 14.1 g/dl (12.0-16.0); Mean Corpuscular Hgb Conc 35.8 g/dL (32.0-36.0); Mean Corpuscular Volume 80.9 fL (80.0-100.0); Mean Platelet Volume 8.4 fL (9.4-12.4); Platelet Count 326 K/uL (130-400); RDW Coefficient of Variation 12.2 % (11.5-14.5); RDW Standard Deviation 35.8 fL (36.4-46.3); Red Blood Count 4.87 M/uL (4.20-5.40); White Blood Count 5.87 K/ul (4.8-10.8)
[2022-08-01 07:35] LABS: Albumin Globulin Ratio 1.7 (0.9-2); Albumin Level 4.5 gm/dl (3.4-5.0); BUN Creatinine Ratio 18.7 (10-20); Bilirubin,Total 0.6 mg/dl (0.2-1.0); Calcium 9.8 mg/dl (8.5-10.1); Chol HDL Ratio 3.7 (0-5); Creatinine Clr Calc Pharmacy 96.1 ml/min; Est GFR (African American) 102.6 ml/min; Est GFR (Non-African American) 88.5 ml/min; Globulin 2.7 gm/dl (2.5-4.0); Magnesium 2.1 mg/dl (1.7-2.4); Total Protein 7.2 gm/dl (6.0-8.3)
[2022-08-01] MEDS: ARIPiprazole 5 MG TAB PO SCH (08:12)
[2022-08-01] MEDS: BACLOFEN 10 MG TAB PO SCH ×2 (08:13→20:23)
[2022-08-01] MEDS: CHOLECALCIFEROL 1,000 UNITS 25 MCG TAB PO SCH (08:13)
[2022-08-01] MEDS: DULoxetine HCL 30 MG CAP PO SCH (08:13)
[2022-08-01] MEDS: DULoxetine HCL 60 MG CAP PO SCH (08:14)
[2022-08-01] MEDS: FLUTICASONE/VILANTEROL 200/25MCG 14 PUFFS/INHALER INH SCH (08:14)
[2022-08-01] MEDS: GABAPENTIN 400 MG CAP PO SCH ×4 (08:15→20:23)
[2022-08-01] MEDS: hydrOXYzine HCl 25 MG TAB PO SCH ×3 (08:16→20:24)
[2022-08-01] MEDS: ADVANCED PROBIOTIC 1250 MG CAPSULE PO SCH (08:17)
[2022-08-01] MEDS: lisinopril 20 MG TAB PO SCH (08:17)
[2022-08-01] MEDS: OXcarbazepine 150 MG TABLET PO SCH ×3 (08:20→20:24)
[2022-08-01] MEDS: PANTOprazole 40 MG TAB PO SCH (08:21)
[2022-08-01 11:17] LABS: Estimated Average Glucose 108 mg/dl; Hemoglobin A1C 5.4 % (4.5-5.6)
[2022-08-01] MEDS ORDERED: REGADENOSON 0.4 MG/5 ML SYR IV ONE (12:02)
--- NOTE | 2022-08-01 13:27 | Hospitalist Progress Note ---
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 Atypical chest pain DD: Uncontrolled blood pressure, overcorrection of hypothyroidism likely contributing --CXR:No acute chest disease. --Negative Troponin --ECHO: Concentric LVH. Left ventricle systolic function is normal. Left ventricle wall motion is normal. EF 60 to 65%. Right ventricle systolic pressure is normal. Left atrial size is normal. Right atrial size is normal. Grade 1 diastolic dysfunction. No significant valvular pathology --EKG: No signs of acute ischemia --Dobutamine stress test--pending --Currently chest pain free -Will consider cardiology evaluation if needed HLP Advised diet and exercise We will consider medications if needed HTN PCP recently increased lisinopril from 5mg to 10mg daily Continue lisinopril 20mg daily continue metoprolol xl 25mg daily Obstructive sleep apnea continue BiPAP HS Hypothyroidism TSH low, Normal free T4 Continue reduced levothyroxine dose 88.5mcg Advised repeat in 4-6weeks with PCP Bipolar disorder continue home meds Hyperglycemia HbA1C: 5.4 DVT Px: SQ Lovenox Code Status FULL CODE Admission and Anticipated Discharge Date Admission Date: July 31, 2022 Subjective Patient is seen and examined at bedside Chest pain resolved Denies any shortness of breath, dizziness, nausea, abdominal pain Plan for stress test today No other complaints Review of Systems Review of Systems: All systems reviewed & are unremarkable except as noted in Subjective Physical Exam Physical Exam: Physical Exam: Vitals signs as noted above General Appearance:Obese, no apparent distress Head: normocephalic, Atraumatic Eyes: normal inspection, EOMI Neck: supple, Trachea midline Respiratory/Chest: Normal breath sounds, CTA, No accessory muscle use Cardiovascular: S1, S2, No murmur Abdomen/GI:Soft, Non tender, Bowel sounds present Extremities/Musculoskeletal:normal inspection, no edema Neurologic/Psych:AAOX3, grossly no focal neurological deficits Skin: normal color, warm Results & Data Results & Data ([facility]) Vital Signs (Past 12 Hours) Vital Signs Temp Pulse Pulse Resp BP Pulse Ox O2 Del Method 08/01/22 11:54 73 08/01/22 11:54 Room Air 08/01/22 11:47 37 C 82 18 112/69 94 Room Air 08/01/22 08:09 36.7 C 76 18 124/85 94 Room Air 08/01/22 03:21 36.9 C 75 18 129/81 94 Room Air Laboratory Results Short CBC 08/01/22 Range/Units 06:32 WBC 5.87 (4.8-10.8) K/ul Hgb 14.1 (12.0-16.0) g/dl Hct 39.4 (37.0-47.0) % Plt Count 326 (130-400) K/uL BMP 08/01/22 06:32 Sodium 135 L Potassium 4.0 Chloride 102 Carbon Dioxide 28 BUN 14 Creatinine 0.75 Glucose 102 H Calcium 9.8 Liver Function 08/01/22 Range/Units 06:32 Total Bilirubin 0.6 (0.2-1.0) mg/dl AST 15 (13-39) U/L ALT 14 (7-52) U/L Alkaline Phosphatase 78 (34-104) U/L Albumin 4.5 (3.4-5.0) gm/dl (1) Chest pain Chest pain type: unspecified Qualified Code(s): R07.9 - Chest pain, unspecified
[2022-08-01] MEDS: METOPROLOL SUCC 25MG EXT REL TAB PO SCH (14:06)
--- NOTE | 2022-08-01 15:41 | Electrocardiogram Report ---
Test Reason : Blood Pressure : / mmHG Vent. Rate : 065 BPM Atrial Rate : 065 BPM P-R Int : 140 ms QRS Dur : 096 ms QT Int : 426 ms P-R-T Axes : 050 054 044 degrees QTc Int : 443 ms Normal sinus rhythm Normal ECG When compared with ECG of 31-JUL-2022 08:44, Vent. rate has decreased BY 45 BPM Confirmed by Jesus Bell ([id number]) on 08/01/2022 3:41:20 PM Referred By: REFERRED SELF Confirmed By:Jesus Bell
[2022-08-01] MEDS: ENOXAPARIN INJ 40 MG/0.4 ML SYR SQ SCH (20:22)
[2022-08-02] MEDS: LEVOTHYROXINE SODIUM 88 MCG TABLET PO SCH (06:05)
[2022-08-02 07:46] LABS: Hematocrit (blood only) 39.5 % (37.0-47.0); Hemoglobin 14.1 g/dl (12.0-16.0); Mean Corpuscular Hemoglobin 29.3 pg (25.0-34.0); Mean Corpuscular Hgb Conc 35.7 g/dL (32.0-36.0); Mean Corpuscular Volume 82.1 fL (80.0-100.0); Mean Platelet Volume 8.3 fL (9.4-12.4); Platelet Count 339 K/uL (130-400); RDW Coefficient of Variation 12.1 % (11.5-14.5); RDW Standard Deviation 36.4 fL (36.4-46.3); Red Blood Count 4.81 M/uL (4.20-5.40); White Blood Count 6.42 K/ul (4.8-10.8)
[2022-08-02 08:04] LABS: BUN Creatinine Ratio 22.7 (10-20); Calcium 9.6 mg/dl (8.5-10.1); Creatinine Clr Calc Pharmacy 96.4 ml/min; Est GFR (African American) 102.6 ml/min; Est GFR (Non-African American) 88.5 ml/min
[2022-08-02] MEDS: METOPROLOL SUCC 25MG EXT REL TAB PO SCH (08:50)
[2022-08-02] MEDS: PANTOprazole 40 MG TAB PO SCH (08:50)
[2022-08-02] MEDS: ARIPiprazole 5 MG TAB PO SCH (08:50)
[2022-08-02] MEDS: CHOLECALCIFEROL 1,000 UNITS 25 MCG TAB PO SCH (08:50)
[2022-08-02] MEDS: DULoxetine HCL 60 MG CAP PO SCH (08:51)
[2022-08-02] MEDS: OXcarbazepine 150 MG TABLET PO SCH ×2 (08:51→13:47)
[2022-08-02] MEDS: ADVANCED PROBIOTIC 1250 MG CAPSULE PO SCH (08:51)
[2022-08-02] MEDS: lisinopril 20 MG TAB PO SCH (08:51)
[2022-08-02] MEDS: GABAPENTIN 400 MG CAP PO SCH ×2 (08:51→12:40)
[2022-08-02] MEDS: hydrOXYzine HCl 25 MG TAB PO SCH ×2 (08:51→13:46)
[2022-08-02] MEDS: BACLOFEN 10 MG TAB PO SCH (08:51)
[2022-08-02] MEDS: FLUTICASONE/VILANTEROL 200/25MCG 14 PUFFS/INHALER INH SCH (08:52)
[2022-08-02] MEDS: DULoxetine HCL 30 MG CAP PO SCH (08:52)
--- NOTE | 2022-08-02 12:40 | Hospitalist Progress Note ---
Date of Service August 02, 2022 Assessment & Plan (1) Chest pain: (2) HTN (hypertension): (3) Sleep apnea: (4) Bipolar 1 disorder: (5) Hypothyroidism: Plan Patient is a 57 yr female with H/O Arnold-Chiari malformation status post [employer]GE shunt, fibromyalgia, hypertension, hypothyroidism, CECI on BiPAP therapy, GERD, vitamin D deficiency, drug-induced constipation, asthma, bipolar disorder who presents to ED secondary to chest pain off and on for the past 3 to 4 days. Atypical chest pain DD: Uncontrolled blood pressure, overcorrection of hypothyroidism likely contributing --CXR:No acute chest disease. --Negative Troponin --ECHO: Concentric LVH. Left ventricle systolic function is normal. Left ventricle wall motion is normal. EF 60 to 65%. Right ventricle systolic pressure is normal. Left atrial size is normal. Right atrial size is normal. Grade 1 diastolic dysfunction. No significant valvular pathology --EKG: No signs of acute ischemia --Dobutamine stress test--Normal (Discussed with on 08/02/22). Official Report pending. Updated patient. --Plan to discharge home today HLP Advised diet and exercise Will consider medications if needed HTN PCP recently increased lisinopril from 5mg to 10mg daily Continue lisinopril 20mg daily continue metoprolol xl 25mg daily Obstructive sleep apnea continue BiPAP HS Hypothyroidism TSH low, Normal free T4 Continue reduced levothyroxine dose 88 mcg Advised repeat in 4-6weeks with PCP Bipolar disorder continue home meds Hyperglycemia HbA1C: 5.4 DVT Px: SQ Lovenox Code Status FULL CODE Disposition Home Admission and Anticipated Discharge Date Admission Date: July 31, 2022 Subjective Patient is seen and examined at bedside No new complaints No recurrence of chest pain Denies any shortness of breath, dizziness, nausea, abdominal pain Plan to discharge home today if stress test is negative Review of Systems Review of Systems: All systems reviewed & are unremarkable except as noted in Subjective Physical Exam Physical Exam: Physical Exam: Vitals signs as noted above General Appearance:Obese, no apparent distress Head: normocephalic, Atraumatic Eyes: normal inspection, EOMI Neck: supple, Trachea midline Respiratory/Chest: Normal breath sounds, CTA, No accessory muscle use Cardiovascular: S1, S2, No murmur Abdomen/GI:Soft, Non tender, Bowel sounds present Extremities/Musculoskeletal:normal inspection, no edema Neurologic/Psych:AAOX3, grossly no focal neurological deficits Skin: normal color, warm Results & Data Results & Data ([facility]) Vital Signs (Past 12 Hours) Vital Signs Temp Pulse Pulse Resp BP Pulse Ox O2 Del Method 08/02/22 11:47 36.8 C 73 19 103/69 97 Room Air 08/02/22 08:02 68 08/02/22 06:58 36.7 C 82 19 129/83 96 Room Air 08/02/22 04:16 36.6 C 67 20 112/72 93 Room Air 08/02/22 01:00 77 Laboratory Results Short CBC 08/02/22 Range/Units 06:41 WBC 6.42 (4.8-10.8) K/ul Hgb 14.1 (12.0-16.0) g/dl Hct 39.5 (37.0-47.0) % Plt Count 339 (130-400) K/uL BMP 08/02/22 06:41 Sodium 135 L Potassium 4.0 Chloride 101 Carbon Dioxide 28 BUN 17 Creatinine 0.75 Glucose 102 H Calcium 9.6 (1) Chest pain Chest pain type: unspecified Qualified Code(s): R07.9 - Chest pain, unspecified
--- NOTE | 2022-08-02 13:06 | Myocardial Perfusion Study ---
Date of Service August 01, 2022 Myocardial Perfusion Study k Myocardial Perfusion Study Report [place] Act 112: Negative One day nuclear medicine technetium 99m Cardiolite myocardial perfusion scan Clinical history: This stress test is being performed because of a chest pain syndrome. Comparison: None Technique: For the stress portion of the study, 33.23 mCi of technetium 99m Cardiolite IV was injected at 1:05 p.m. on August 01, 2022. Thirty minutes following the injection, imaging of the heart was performed in multiple projections. For the rest portion of the study, 9.97 mCi of technetium 99m Cardiolite was injected IV at 11:30 a.m. on August 01, 2022. One hour following the injection, imaging of the heart was performed in the same projections. Stress portion: The patient was given 0.4 mg of intravenous Lexiscan while being monitored continuously. The patient did not experience chest discomfort. Baseline EKG notes normal sinus rhythm without abnormalities. There were no significant ST segment changes seen during the protocol. There were no dysrhythmias. Findings: The short axis, vertical long axis, and horizontal long axis images were reviewed in detail. There was normal myocardial perfusion at both stress and rest thus excluding a prior myocardial infarction or evidence of stress induced myocardial ischemia. The left ventricle demonstrates normal systolic function without wall motion abnormalities. The left ventricular ejection fraction is 84%. Conclusions: 1. No scintigraphic evidence of a prior myocardial infarction or stress-induced myocardial ischemia. 2. No exercise-induced chest pain. 3. No EKG changes. 4. Normal left ventricular systolic function without wall motion abnormality. Left ventricular ejection fraction is 84%. [facility] Myocardial perfusion code Procedure Code Procedure 1: Myocardial Perfusion Codes: 67481 Cardiovascular Stress Test, multiple Procedure 2: Myocardial Perfusion Codes: 72223 Cardiovascular Stress Test, supervision only Procedure 3: Myocardial Perfusion Codes: 14062 Cardiovascular Stress Test, interpretation and report
--- NOTE | 2022-08-02 14:15 | Discharge Summary ---
Date of Service August 02, 2022 Admission HPI Per Admitting Provider This is a 57-year-old female who has significant past medical history of Arnold- Chiari malformation status post [employer] shunt, fibromyalgia, hypertension, hypothyroidism, CECI on BiPAP therapy, GERD, vitamin D deficiency, drug-induced constipation, asthma, bipolar disorder who presents to ED secondary to chest pain off and on for the past 3 to 4 days. Patient elicits a substernal chest pressure and heaviness that has started over the past 3 to 4 days. She has never experienced this in the past. Pressure is located substernally and occasionally radiates to her left arm and shoulder. She denies any numbness or tingling to left arm and shoulder. She further denies any radiation to left jaw. When pain initially came on she was lying in bed. She is typically not very active and therefore most occasions chest pain presents itself is while she is at rest. It tends to go away within minutes up to 15 minutes on its own without any intervention. Over the last 3 days she has noticed occasional nausea and lightheadedness with the pain. She denies any syncope, presyncope, shortness of breath, palpitations or diaphoresis. She has not tried anything to make symptoms better. She does elicit that she has been under a lot of stress. She recently had a family members who are . She initially thought likely this is secondary to anxiety but due to significant family history and elevated blood pressure this morning she opted to present to ED. Blood pressure this morning was 170s over 100s. Recently she has been following her PCP for blood pressure management. She recently was started on lisinopril and increased from 5 mg to 10 mg 1 week ago. She also has significant history of central sleep apnea on BiPAP therapy. She admits to being compliant with this. She last ate this morning at approximately 8:00 on banana and coconut milk. She did take her morning meds. She denies any recent illness, fever, chills, sweats, lightheadedness, dizziness, cough, hemoptysis, URI symptoms, lower extremity edema, PND orthopnea, vomiting, abdominal pain, change in bowel or urinary habits. She has an overall decreased appetite due to recent passing of close family. She does have prior history of costochondritis and states this feels different. In ED patient remained hemodynamically stable although she was hypertensive, blood pressure during my evaluation was 155/108. Her initial EKG was without ST or T wave change. Her initial troponin was negative. Her repeat troponin in 2 hours was also negative. TSH is 0.196. She does have significant family history of coronary artery disease. Both her father and brother sustained initial MIs in their early 50s. She denies any tobacco or alcohol use. Admission Exam Per Admitting Provider Constitutional: WD/WN, vitals as above, NAD, sitting up in bed, pleasant, conversing easily Head: Normocephalic, Atraumatic Eyes: PERRL, conjunctivae normal, anicteric sclerae ENMT: external ear and nose normal, oropharynx normal Neck: trachea midline, no thyromegaly normal visual inspection Respiratory: normal respiratory effort, lungs clear to auscultation, no wheeze, rales, rhonchi. Normal insp/exp effort, no accessory muscle use Cardiovascular: RRR, no murmur, no edema Vessels: no JVD or carotid bruit Chest: normal inspection of chest, no pain to palpation Abdomen: normal bowel sounds, soft, nontender, no hepatosplenomegaly Musculoskeletal: no cyanosis or clubbing, extremities motor strength 5/5 Skin: no rashes, warm and dry normal turgor Neurologic: PERRL, EOMI, accommodation nl, no face palsy, no dysarthria CN's II-XI intact bilaterally and moves all extremities Psychiatric: A+Ox3, euthymic affect Lymphatic: no cervical or axillary lymphadenopathy : deferred Principal Diagnosis Atypical chest pain Hypertension Hypothyroidism Discharge Data Allergies Allergy/AdvReac Type Severity Reaction Status Date / Time clomipramine Allergy Severe TARDIVE Verified 07/31/22 10:20 DYSKINESIA haloperidol Allergy Severe TARDIVE Verified 07/31/22 10:20 DYSKENESIA NSAIDS (Non-Steroidal Allergy Severe asthma Verified 07/31/22 10:20 Anti-Inflamma exacerbation olanzapine Allergy Severe TARDIVE Verified 07/31/22 10:20 DYSKENSIA pseudoephedrine Allergy Severe ASTHMA Verified 07/31/22 10:20 ISSUES risperidone Allergy Severe tardive Verified 07/31/22 10:20 dyskinesia Gadolinium-Containing Allergy Intermediate RASH Verified 07/31/22 10:20 Contrast Medi Iodinated Contrast Media Allergy Intermediate Rash Unverified 07/31/22 10:20 lithium Allergy Intermediate DIABETES Verified 07/31/22 10:20 INSIPIDOUS latex Allergy Mild skin rash, Verified 07/31/22 10:20 itchy pneumococcal vaccine Allergy Mild RASH Verified 07/31/22 10:20 iodine AdvReac Intermediate Rash on Unverified 07/31/22 10:20 Truck Consultations 07/31/22 10:41 ED Decision to Admit Stat Procedures Performed Laboratory Results WBC 6.42 K/ul (4.8-10.8) 08/02/22 06:41 RBC 4.81 M/uL (4.20-5.40) 08/02/22 06:41 Hgb 14.1 g/dl (12.0-16.0) 08/02/22 06:41 Hct 39.5 % (37.0-47.0) 08/02/22 06:41 MCV 82.1 fL (80.0-100.0) 08/02/22 06:41 MCH 29.3 pg (25.0-34.0) 08/02/22 06:41 MCHC 35.7 g/dL (32.0-36.0) 08/02/22 06:41 RDW Std Deviation 36.4 fL (36.4-46.3) 08/02/22 06:41 RDW Coeff of [place] 12.1 % (11.5-14.5) 08/02/22 06:41 Plt Count 339 K/uL (130-400) 08/02/22 06:41 MPV 8.3 fL (9.4-12.4) L 08/02/22 06:41 Immature Gran % (Auto) 0.3 % 07/31/22 08:50 Neut % (Auto) 59.3 % 07/31/22 08:50 Lymph % (Auto) 28.4 % 07/31/22 08:50 [place] % (Auto) 8.5 % 07/31/22 08:50 Eos % (Auto) 2.5 % 07/31/22 08:50 Baso % (Auto) 1.0 % 07/31/22 08:50 Neut # (Auto) 3.96 K/uL (1.40-6.50) 07/31/22 08:50 Lymph # (Auto) 1.90 K/uL (1.2-3.4) 07/31/22 08:50 [place] # (Auto) 0.57 K/uL (0.11-0.59) 07/31/22 08:50 Eos # (Auto) 0.17 K/uL (0-0.50) 07/31/22 08:50 Baso # (Auto) 0.07 K/uL (0-0.2) 07/31/22 08:50 Immature Gran # (Auto) 0.02 K/uL (0.01-0.20) 07/31/22 08:50 PT 11.0 Seconds (9.0-12.0) 07/31/22 08:50 INR 1.0 (0.9-1.1) 07/31/22 08:50 APTT 28.8 Seconds (21.0-31.0) 07/31/22 08:50 PTT Ratio 1.0 07/31/22 08:50 Sodium 135 mmol/L (136-145) L 08/02/22 06:41 Potassium 4.0 mmol/L (3.5-5.1) 08/02/22 06:41 Chloride 101 mmol/L (98-107) 08/02/22 06:41 Carbon Dioxide 28 mmol/L (21-32) 08/02/22 06:41 Anion Gap 6 (3-11) 08/02/22 06:41 BUN 17 mg/dl (6-23) 08/02/22 06:41 Creatinine 0.75 mg/dl (0.6-1.2) 08/02/22 06:41 Est Cr Clr Drug Dosing 96.4 ml/min 08/02/22 06:41 Est GFR ( Amer) 102.6 ml/min 08/02/22 06:41 Est GFR (Non-Af Amer) 88.5 ml/min 08/02/22 06:41 BUN/Creatinine Ratio 22.7 (10-20) H 08/02/22 06:41 Glucose 102 mg/dl (70-99(Fasting)) H 08/02/22 06:41 Estimat Average Glucose 108 mg/dl 08/01/22 06:32 Hemoglobin A1c 5.4 % (4.5-5.6) 08/01/22 06:32 Calcium 9.6 mg/dl (8.5-10.1) 08/02/22 06:41 Magnesium 2.0 mg/dl (1.7-2.4) 08/02/22 06:41 Total Bilirubin 0.6 mg/dl (0.2-1.0) 08/01/22 06:32 Direct Bilirubin 0.1 mg/dl (0-0.2) 07/31/22 08:50 AST 15 U/L (13-39) 08/01/22 06:32 ALT 14 U/L (7-52) 08/01/22 06:32 Alkaline Phosphatase 78 U/L (34-104) 08/01/22 06:32 Troponin I High Sens < 2.3 pg/ml (0-14) 07/31/22 22:51 Total Protein 7.2 gm/dl (6.0-8.3) 08/01/22 06:32 Albumin 4.5 gm/dl (3.4-5.0) 08/01/22 06:32 Globulin 2.7 gm/dl (2.5-4.0) 08/01/22 06:32 Albumin/Globulin Ratio 1.7 (0.9-2) 08/01/22 06:32 Triglycerides 127 mg/dl (0-150) 08/01/22 06:32 Cholesterol 219 mg/dl (0-200) H 08/01/22 06:32 LDL Cholesterol, Calc 134 mg/dl 08/01/22 06:32 VLDL Cholesterol, Calc 25 mg/dl (0-30) 08/01/22 06:32 HDL Cholesterol 60 mg/dl 08/01/22 06:32 Cholesterol/HDL Ratio 3.7 (0-5) 08/01/22 06:32 TSH 0.196 uIu/ml (0.300-4.500) L 07/31/22 08:50 Free T4 0.91 ng/dl (0.61-1.60) 07/31/22 08:50 SARS-CoV-2, RNA, NAAT NEGATIVE (NEGATIVE) 07/31/22 08:59 Impressions Chest X-Ray 07/31/22 08:53 XR chest 1V portable CLINICAL HISTORY: Chest Pain TECHNIQUE: Single frontal radiograph of the chest was obtained. Comparison: Comparison is made to chest radiograph 10/27/2021 FINDINGS: Lines and tubes are stable. The cardiomediastinal silhouette is normal. The lungs are clear. No evidence of pleural effusion or pneumothorax. IMPRESSION: No acute chest disease. ACT 112: Negative or not required by law. Electronically signed by: Didier Devlin M.D. 07/31/2022 9:17 AM Hospital Course (1) Chest pain: (2) HTN (hypertension): (3) Sleep apnea: (4) Bipolar 1 disorder: (5) Hypothyroidism: Plan Patient is a 57 yr female with H/O Arnold-Chiari malformation status post [employer] shunt, fibromyalgia, hypertension, hypothyroidism, CECI on BiPAP therapy, GERD, vitamin D deficiency, drug-induced constipation, asthma, bipolar disorder who presents to ED secondary to chest pain off and on for the past 3 to 4 days. Atypical chest pain DD: Uncontrolled blood pressure, overcorrection of hypothyroidism likely contributing --CXR:No acute chest disease. --Negative Troponin --ECHO: Concentric LVH. Left ventricle systolic function is normal. Left ventricle wall motion is normal. EF 60 to 65%. Right ventricle systolic pressure is normal. Left atrial size is normal. Right atrial size is normal. Grade 1 diastolic dysfunction. No significant valvular pathology --EKG: No signs of acute ischemia --Dobutamine stress test--Normal (Discussed with on 08/02/22). Official Report pending. Updated patient. --Plan to discharge home today HLP Advised diet and exercise Will consider medications if needed HTN PCP recently increased lisinopril from 5mg to 10mg daily Continue lisinopril 20mg daily continue metoprolol xl 25mg daily Obstructive sleep apnea continue BiPAP HS Hypothyroidism TSH low, Normal free T4 Continue reduced levothyroxine dose 88 mcg Advised repeat in 4-6weeks with PCP Bipolar disorder continue home meds Hyperglycemia HbA1C: 5.4 DVT Px: SQ Lovenox Code Status FULL CODE Disposition Home Total Time Total Time Spent Total Time Spent (In Minutes): 57 minutes Discharge Plan Discharge Items Patient Disposition: Home - Self-Care Reason For Visit: CHEST PAIN, ARM PAIN, HIGH BP Discharge Diagnosis: Atypical chest pain Hypertension Hypothyroidism Activity: Per Instructions section Exercise/Sports: Gradually increase as tolerated Non-emergency contact: Primary Care Provider and Navigation Officer Call non-emergency contact if: you have any medication questions, your symptoms worsen, your pain is concerning for you and you have a fever Follow-up/Referrals: Wanda Mars MD [Primary Care Provider] - (Date & Time 08/07/2022 3:00 PM Provider Jinny Rodriguez PA-C Department [facility] ) Diet: Heart Healthy Addtl Attending Provider Instructions: Follow-up with your primary care physician on 08/07/2022 3:00 PM Follow-up with your automotive service management teacher as needed --- Your official stress test report is pending at the time of discharge. Follow-up with your physician for results. Medication changes: 1) --Your levothyroxine dose is decreased to 88 mcg daily based on your thyroid function test. --Get repeat thyroid function test in 4 to 6 weeks as outpatient as advised. 2)--Your lisinopril dose is increased to 20 mg daily for better control of blood pressure. Seek immediate medical attention if your symptoms reoccur or worsen Please take all medications as instructed on discharge list below. Please call if you have any questions or problems. You can reach a [facility] hospitalist on duty at [facility] [address] 24 hours a day by calling [phone] Pending Studies at Discharge: No Stand-Alone Forms: My [facility] HowDo, Smoking Cessation Medications and DC Order Prescriptions: New lisinopril 20 mg Tablet 20 mg PO DAILY Qty: 30 0RF levothyroxine [Synthroid] 88 mcg Tablet 88 mcg PO DAILYBB Qty: 30 1RF Continued cetirizine [Zyrtec] 10 mg Tablet 10 mg PO QAM PRN (Reason: Allergy Symptoms) gabapentin [Neurontin] 400 mg capsule 400 mg PO QID oxcarbazepine [Trileptal] 300 mg tablet 300 mg PO TID prochlorperazine maleate [Compazine] 10 mg tablet 10 mg PO Q6 PRN (Reason: Nausea) baclofen 10 mg tablet 10 mg PO BID omeprazole 20 mg capsule,delayed release(DR/EC) 20 mg PO QAM albuterol sulfate [Ventolin HFA] 90 mcg/actuation Hfa Aerosol Inhaler 2 puff INHALATION Q4 PRN (Reason: Shortness Of Breath Or Wheezing) fluticasone propionate [Flonase Allergy Relief] 50 mcg/actuation spray,suspension 2 spray intranasal HS PRN (Reason: Nasal Congestion) cholecalciferol (vitamin D3) [Vitamin D3] 1,000 unit Capsule 1,000 unit PO DAILY aripiprazole [Abilify] 5 mg tablet 5 mg PO DAILY duloxetine [Cymbalta] 30 mg capsule,delayed release(DR/EC) 30 mg PO QAM Rx Instructions: Take with 60mg to make 90mg fluticasone propion-salmeterol [Wixela Inhub] 500-50 mcg/dose blister with device 1 ea INHALATION BID hydroxyzine pamoate 50 mg Capsule 50 mg PO TID Probiotic Blend 2 billion cell-50 mg Capsule 1 cap PO QAM metoprolol succinate 25 mg tablet extended release 24 hr 25 mg PO DAILY duloxetine 60 mg capsule,delayed release(DR/EC) 60 mg PO QAM Rx Instructions: Take with 60mg to make 90mg Discontinued levothyroxine 100 mcg tablet 100 mcg PO DAILYBB lisinopril 10 mg tablet 10 mg PO DAILY Discharge Orders: Discharge Order (Routine); Ordered 08/02/22 Ordered By: Devin Nixon Admission Data Admit Date/Time: 07/31/22 11:23 Attending Provider: Devin Nixon Admit Provider: Erika Callahan Primary Care Provider: Wanda Mars Other Providers: Erika Callahan
== END 2022-08-02 15:20 | disposition home or self-care (01) ==
LOC: 2S 08:35 → ED 08:35 → SUATTDRO 11:23 → 2S 11:58